=== PATIENT | male | born 1975 | race Caucasian/White ===

== ENCOUNTER 2017-08-15 10:15 | Outpatient (RCR) | payer MEDICARE, MEDICAID, SELFPAY ==
[2017-07-31 10:59] VITALS: BP 120/65; PULSE 90; RESP 20; TEMP 37.7; BMI 31.3
--- NOTE | 2017-07-31 12:19 | WC ---
PT IS REFUGIO. LIVES @ [facility]. PER CAREGIVER PT'S MOTHER YOLETTE IS HIS POA FOR MEDICAL. CALLED YOLETTE KIM. SHE ASKS THAT WE EMAIL OR MAIL HER CONSENTS, SHE WILL SIGN AND SEND BACK. JUSTIN, ANCILLARY SERVICES MANAGER THERAPY UPDATED AND GIVEN CONTACT INFO.
--- NOTE | 2017-07-31 17:11 | PCM.WC.HP ---
(1) Open wound of left lower extremity Status: Acute Current Visit: Yes Qualifiers: Encounter type: initial encounter Qualified Code(s): S81.802A - Unspecified open wound, left lower leg, initial encounter Code(s): S81.802A - Unspecified open wound, left lower leg, initial encounter (2) MRDD Status: Chronic Current Visit: No (3) Open wound of right lower extremity Status: Acute Current Visit: Yes Qualifiers: Encounter type: initial encounter Qualified Code(s): S81.801A - Unspecified open wound, right lower leg, initial encounter Code(s): S81.801A - Unspecified open wound, right lower leg, initial encounter (4) Cerebral palsy Status: Chronic Current Visit: No Code(s): G80.9 - Cerebral palsy, unspecified (5) Seizure disorder Status: Chronic Current Visit: No Code(s): G40.909 - Epilepsy, unspecified, not intractable, without status epilepticus History of Present Illness Date of Service: 07/31/17 Chief Complaint: Open wounds of bilateral lower extremities s/p fall. History of Wound: Mr. Osborne is a 42yo with PMH of cerebral palsy, seizure disorder and intellectual disability who presented here with his caregiver due to bilateral lower extremity wounds. On 19 July 2017 patient was said to have gone into seizure while in the bathroom and subseqeuntly sustained injuries/wounds to his bilateral lower extremity wounds. He has been to the ER, urgent care, his PCP and finally podiatry before being referred here. Per his caregiver he was initially started on clindamycin however this was recently changed to Bactrim. Wounds are said to be improving since being on antibiotics. He is otherwise said to be at his baseline with no documented chills, fever, nausea, vomiting or change in his bowel habit. He appears well also. Past Medical History Past Medical History: Chronic Problems MRDD (Chronic) Cerebral palsy (Chronic) Seizure disorder (Chronic) Surgical History: noncontributory Allergies/Adverse Reactions: Allergies cat dander Allergy (Verified 07/24/17 10:25) cough divalproex sodium [From Depakote] Adverse Reaction (Verified 07/24/17 10:25) Other valproate sodium [From Depakene] Adverse Reaction (Verified 07/24/17 10:25) Other valproic acid Adverse Reaction (Verified 07/24/17 10:25) affects machine worker adversly Home Medications: Ambulatory Orders Medication Instructions Recorded Aripiprazole [Abilify] 2 mg PO BID 04/06/15 DiphenhydrAMINE [Benadryl] 25 mg PO TID PRN PRN 04/06/15 Docusate Sodium [Colace Clear] 100 mg PO BID 04/06/15 Escitalopram Oxalate [Lexapro] 15 mg PO DAILY 04/06/15 Fluticasone 0.05% [Flonase Nasal 2 spray INHALATION DAILY 04/06/15 Mcewen] Lamotrigine [Lamictal Xr] 300 mg PO BID 04/06/15 Omeprazole [Prilosec] 40 mg PO BID 04/06/15 Vitamin D 1.25 mg PO DAILY 04/06/15 Vitamin E 28,000 units TOPICAL QODAY 04/06/15 Zonisamide [Zonegran] 200 mg PO BID 04/06/15 Bacitracin Ointment 1 applic TOPICAL BID #60 g 07/20/17 Calcium 600 with Vit D Chew Tb 1 tab PO BID 07/20/17 Certavite 1 tab PO DAILY 07/20/17 Debrox 3 drop TOPICAL BID 07/20/17 Diastat 10 mg RECTAL PRN 07/20/17 Polyethylene Glycol 3350 [Miralax] 17 gm PO BID 07/20/17 Mupirocin [Bactroban] 1 applic TOPICAL TID #1 tube 07/24/17 Smz/Tmp Ds [Bactrim Ds] 1 tablet PO BID 07/31/17 - Family History Maternal - - Adopted Smoking Status: Never smoker Review of Systems Unable to obtain accurate/complete ROS d/t: Patient with a history of intellectual disability. - Physical Exam Vital Signs Temp Pulse Resp BP 100 F H 90 20 H 120/65 07/31/17 10:59 07/31/17 10:59 07/31/17 10:59 07/31/17 10:59 General: Cooperative, No apparent distress HEENT: Atraumatic Oral: Moist Mucosa Neck: Supple, No JVD Lungs: Normal air movement Cardiovascular: Regular rate, Regular Rhythm, Normal S1, Normal S2 Abdomen: Soft, Non Tender Skin: Ulcer/ Wound Wound Measurements and Assessment WC - Nurse 1 - General Ulcer Measurement Start: 07/31/17 10:21 Freq: Status: Active Protocol: Activity Type Activity Date Activity User E-Sign Co-Sign Detail Recorded Client Recorded Date Recorded By Document 07/31/17 10:59 [facility] [id number] 07/31/17 11:30 [facility] 07/31/17 10:59 Wound Center Nurse 1 [Ulcer Assessment Protocol: WC.WD.LOC] #5- RT LATERAL ANKLE -Combined with other wound No -Current Size (cm) - Length 3 -Current Size (cm) - Width 1.2 -Current Size (cm) - Depth 0.1 -Total Square Cm 3.6 -Date of Last Picture (Recall this 07/31/17 field) -Photo Taken Yes -Epithelialization None Present -Tunneling No -Undermining/Tunneling No -Exudate Amt Small (1-33%) -Exudate Type Serosanguineous -Wound Margin Distinct, Outline Attached -Granulation Amt Small (1-33%) -Granulation Quality Red -Slough/Fibrin Yes -Necrosis Amt Large (67-100%) -Necrotic Tissue Type Adherent Slough -Structure Exposed N/A -Texture (Zelda-wound Skin Appearance) Assessed -Moisture (Zelda-wound Skin Appearance Dry/Scaly ) -Color (Zelda-wound Skin Appearance) Erythema -Temperature (Zelda-wound Skin No Abnormality Appearance) (Pt Warm) -Tenderness on Palpation (Zelda-wound Yes Skin Appearance) -Ulcer Cleansing Rinsed/ Irrigated with Saline -Foul Odor after Cleansing No -Anesthetic Used 4% Lidocaine Solution #4- RT FOOT DORSAL ASPECT -Combined with other wound No -Current Size (cm) - Length 19 -Current Size (cm) - Width 3.5 -Current Size (cm) - Depth 0.1 -Total Square Cm 66.5 -Date of Last Picture (Recall this 07/31/17 field) -Photo Taken Yes -Epithelialization None Present -Tunneling No -Undermining/Tunneling No -Exudate Amt Small (1-33%) -Exudate Type Serosanguineous -Wound Margin Distinct, Outline Attached -Granulation Amt Small (1-33%) -Granulation Quality Red -Slough/Fibrin Yes -Necrosis Amt Large (67-100%) -Necrotic Tissue Type Adherent Slough -Structure Exposed N/A -Texture (Zelda-wound Skin Appearance) Assessed -Moisture (Zelda-wound Skin Appearance Dry/Scaly ) -Color (Zelda-wound Skin Appearance) Erythema -Temperature (Zelda-wound Skin No Abnormality Appearance) (Pt Warm) -Tenderness on Palpation (Zelda-wound No Skin Appearance) -Ulcer Cleansing Rinsed/ Irrigated with Saline -Foul Odor after Cleansing No -Anesthetic Used 4% Lidocaine Solution #3- LT FOOT DORSAL ASPECT -Combined with other wound No -Current Size (cm) - Length 6.3 -Current Size (cm) - Width 6.3 -Current Size (cm) - Depth 0.1 -Total Square Cm 39.69 -Date of Last Picture (Recall this 07/31/17 field) -Photo Taken Yes -Epithelialization None Present -Tunneling No -Undermining/Tunneling No -Exudate Amt Medium (34-66%) -Exudate Type Serosanguineous -Wound Margin Distinct, Outline Attached -Granulation Amt None Present (0 %) -Slough/Fibrin Yes -Necrosis Amt Large (67-100%) -Necrotic Tissue Type Adherent Slough -Structure Exposed N/A -Texture (Zelda-wound Skin Appearance) Assessed -Moisture (Zelda-wound Skin Appearance Dry/Scaly ) -Color (Zelda-wound Skin Appearance) Erythema -Temperature (Zelda-wound Skin No Abnormality Appearance) (Pt Warm) -Tenderness on Palpation (Zelda-wound Yes Skin Appearance) -Ulcer Cleansing Rinsed/ Irrigated with Saline -Foul Odor after Cleansing No -Anesthetic Used 4% Lidocaine Solution #2- LT GR TOE -Combined with other wound No -Current Size (cm) - Length 1.4 -Current Size (cm) - Width 3 -Current Size (cm) - Depth 0.1 -Total Square Cm 4.2 -Date of Last Picture (Recall this 07/31/17 field) -Photo Taken Yes -Epithelialization None Present -Tunneling No -Undermining/Tunneling No -Exudate Amt Small (1-33%) -Exudate Type Serosanguineous -Wound Margin Distinct, Outline Attached -Granulation Amt None Present (0 %) -Slough/Fibrin Yes -Necrosis Amt Large (67-100%) -Necrotic Tissue Type Adherent Slough -Structure Exposed N/A -Texture (Zelda-wound Skin Appearance) Assessed -Moisture (Zelda-wound Skin Appearance Dry/Scaly ) -Color (Zelda-wound Skin Appearance) Erythema -Temperature (Zelda-wound Skin No Abnormality Appearance) (Pt Warm) -Tenderness on Palpation (Zelda-wound Yes Skin Appearance) -Ulcer Cleansing Rinsed/ Irrigated with Saline -Foul Odor after Cleansing No -Anesthetic Used 4% Lidocaine Solution [Edema Assessment] -Lower Limb Edema Present Yes -Right Calf (cm) 36.9 -Right Ankle (cm) 22 -Left Calf (cm) 37.8 -Left Ankle (cm) 23.1 WC - Nurse 2 - General Ulcer CM Notes Start: 07/31/17 10:21 Freq: Status: Active Protocol: Activity Type Activity Date Activity User E-Sign Co-Sign Detail Recorded Client Recorded Date Recorded By Document 07/31/17 12:32 DV [id number] 07/31/17 12:39 DV 07/31/17 12:32 Wound Center Nurse 2 [Procedure/Treatment] #5- RT LATERAL ANKLE -Time 12:33 -Correct Patient Yes -Correct Side, Site, Position Yes -Correct Procedure Yes -Procedure Performed Yes -Type of Procedure Debridement -Clinical Debridement Subcutaneous -Post Debridement Size (cm) - Length 3.5 -Post Debridement Size (cm) - Width 1.3 -Post Debridement Size (cm) - Depth 0.1 -Total Square Cm 4.55 -Wound/Ulcer Outcome Not Healed -Ulcer Cleansing Rinsed/ Irrigated with Saline -Foul Odor after Cleansing No -Bioengineered Tissue No -Cetacaine Mcewen No -Bleeding Controlled with Pressure -Treatment Response Procedure Tolerated Well #4- RT FOOT DORSAL ASPECT -Time 12:34 -Correct Patient Yes -Correct Side, Site, Position Yes -Correct Procedure Yes -Procedure Performed Yes -Type of Procedure Debridement -Clinical Debridement Subcutaneous -Post Debridement Size (cm) - Length 20.0 -Post Debridement Size (cm) - Width 3.6 -Post Debridement Size (cm) - Depth 0.1 -Total Square Cm 72.00 -Wound/Ulcer Outcome Not Healed -Ulcer Cleansing Rinsed/ Irrigated with Saline -Foul Odor after Cleansing No -Bioengineered Tissue No -Cetacaine Mcewen No -Bleeding Controlled with Pressure -Treatment Response Procedure Tolerated Well #3- LT FOOT DORSAL ASPECT -Time 12:37 -Correct Patient Yes -Correct Side, Site, Position Yes -Correct Procedure Yes -Procedure Performed Yes -Type of Procedure Debridement -Clinical Debridement Subcutaneous -Post Debridement Size (cm) - Length 6.5 -Post Debridement Size (cm) - Width 6.5 -Post Debridement Size (cm) - Depth 0.1 -Total Square Cm 42.25 -Wound/Ulcer Outcome Not Healed -Ulcer Cleansing Rinsed/ Irrigated with Saline -Foul Odor after Cleansing No -Bioengineered Tissue No -Cetacaine Mcewen No -Bleeding Controlled with Pressure -Treatment Response Procedure Tolerated Well #2- LT GR TOE -Time 12:37 -Correct Patient Yes -Correct Side, Site, Position Yes -Correct Procedure Yes -Procedure Performed Yes -Type of Procedure Debridement -Clinical Debridement Subcutaneous -Post Debridement Size (cm) - Length 2.0 -Post Debridement Size (cm) - Width 3.0 -Post Debridement Size (cm) - Depth 0.1 -Total Square Cm 6.00 -Wound/Ulcer Outcome Not Healed -Ulcer Cleansing Rinsed/ Irrigated with Saline -Foul Odor after Cleansing No -Bioengineered Tissue No -Cetacaine Mcewen No -Bleeding Controlled with NA -Treatment Response Procedure Tolerated Well [See Physician Procedure note for Specifics] Pain Scale: 0-10 Numeric [Pain] -Is Patient Pain Free? Yes Musculoskeletal: No Muscle Wasting Debridement Note Post-Debridement Measurements/Treatment WC - Nurse 2 - General Ulcer CM Notes Start: 07/31/17 10:21 Freq: Status: Active Protocol: Activity Type Activity Date Activity User E-Sign Co-Sign Detail Recorded Client Recorded Date Recorded By Document 07/31/17 12:32 DV [id number] 07/31/17 12:39 DV 07/31/17 12:32 Wound Center Nurse 2 #5- RT LATERAL ANKLE -Time 12:33 -Correct Patient Yes -Correct Side, Site, Position Yes -Correct Procedure Yes -Procedure Performed Yes -Type of Procedure Debridement -Clinical Debridement Subcutaneous -Post Debridement Size (cm) - Length 3.5 -Post Debridement Size (cm) - Width 1.3 -Post Debridement Size (cm) - Depth 0.1 -Total Square Cm 4.55 -Wound/Ulcer Outcome Not Healed -Ulcer Cleansing Rinsed/ Irrigated with Saline -Foul Odor after Cleansing No -Bioengineered Tissue No -Cetacaine Mcewen No -Bleeding Controlled with Pressure -Treatment Response Procedure Tolerated Well #4- RT FOOT DORSAL ASPECT -Time 12:34 -Correct Patient Yes -Correct Side, Site, Position Yes -Correct Procedure Yes -Procedure Performed Yes -Type of Procedure Debridement -Clinical Debridement Subcutaneous -Post Debridement Size (cm) - Length 20.0 -Post Debridement Size (cm) - Width 3.6 -Post Debridement Size (cm) - Depth 0.1 -Total Square Cm 72.00 -Wound/Ulcer Outcome Not Healed -Ulcer Cleansing Rinsed/ Irrigated with Saline -Foul Odor after Cleansing No -Bioengineered Tissue No -Cetacaine Mcewen No -Bleeding Controlled with Pressure -Treatment Response Procedure Tolerated Well #3- LT FOOT DORSAL ASPECT -Time 12:37 -Correct Patient Yes -Correct Side, Site, Position Yes -Correct Procedure Yes -Procedure Performed Yes -Type of Procedure Debridement -Clinical Debridement Subcutaneous -Post Debridement Size (cm) - Length 6.5 -Post Debridement Size (cm) - Width 6.5 -Post Debridement Size (cm) - Depth 0.1 -Total Square Cm 42.25 -Wound/Ulcer Outcome Not Healed -Ulcer Cleansing Rinsed/ Irrigated with Saline -Foul Odor after Cleansing No -Bioengineered Tissue No -Cetacaine Mcewen No -Bleeding Controlled with Pressure -Treatment Response Procedure Tolerated Well #2- LT GR TOE -Time 12:37 -Correct Patient Yes -Correct Side, Site, Position Yes -Correct Procedure Yes -Procedure Performed Yes -Type of Procedure Debridement -Clinical Debridement Subcutaneous -Post Debridement Size (cm) - Length 2.0 -Post Debridement Size (cm) - Width 3.0 -Post Debridement Size (cm) - Depth 0.1 -Total Square Cm 6.00 -Wound/Ulcer Outcome Not Healed -Ulcer Cleansing Rinsed/ Irrigated with Saline -Foul Odor after Cleansing No -Bioengineered Tissue No -Cetacaine Mcewen No -Bleeding Controlled with NA -Treatment Response Procedure Tolerated Well Pain Scale: 0-10 Numeric Is Patient Pain Free? Yes Wound debrided: Right Dorsal wound Type of Debridement: Excisional debridement Anesthesia Used: 4% Lidocaine Solution Depth: Down to and including healthy tissue, in the subcutaneous layer Percentage of wound debrided: 100 Instrument Used: 7mm curette Tissue Removed: Slough, Fibrin, biofilm Amount of bleeding with debridement: Mild Bleeding Controlled with: Pressure Patient tolerated procedure well - Additional Wound Wound debrided: Right ankle wounf Type of Debridement: Excisional debridement Anesthesia Used: 4% Lidocaine Solution Depth: Down to and including healthy tissue, in the subcutaneous layer Percentage of wound debrided: 100 Instrument Used: 5mm curette Tissue Removed: Slough Amount of bleeding with debridement: Mild Bleeding Controlled with: Pressure Patient tolerated procedure: Patient tolerated procedure well - Additional Wound Wound debrided: Left Dorsal wound Type of Debridement: Excisional debridement Anesthesia Used: 4% Lidocaine Solution Depth: Down to and including healthy tissue, in the subcutaneous layer Percentage of wound debrided: 100 Instrument Used: 7mm curette Tissue Removed: Slough, Fibrin, Biofilm Amount of bleeding with debridement: Mild Bleeding Controlled with: Pressure Patient tolerated procedure: Patient tolerated procedure well - Additional Wound Wound debrided: Left Great Toe Type of Debridement: Excisional debridement Anesthesia Used: 4% Lidocaine Solution Depth: Down to and including healthy tissue, in the subcutaneous layer Percentage of wound debrided: 100 Instrument Used: 5mm curette Tissue Removed: Slough Amount of bleeding with debridement: Mild Bleeding Controlled with: Pressure Patient tolerated procedure: Patient tolerated procedure well Assessment/Plan Active Problems Open wound of left lower extremity (Acute) Open wound of right lower extremity (Acute) Assessment: Open wound to bilateral lower extremity secondary to trauma. Intellectual Disability. Seizure Disorder. Plan: Wound debridement done as documented above. Procedure was well-tolerated. Cultures have been taken by his nitrating acid mixer and he is currently on Bactrim. Will continue current antibiotic. Apply Santyl with Adaptic covering to left dorsal wound. Apply Aquacel with Adaptic covering to right dorsal and lateral ankle wounds. Elevate lower extremities when sitted and in bed. Daily protein supplements and protein rich diet. Exercise as tolerated. Follow-up in 1 week. This note was generated with [employer] dictation software. It may contain incorrect words, spelling, and punctuation that were not noted in checking the note before signing.
--- NOTE | 2017-07-31 17:22 | HP.PCM_ITS ---
(1) Open wound of left lower extremity Status: Acute Current Visit: Yes Qualifiers: Encounter type: initial encounter Qualified Code(s): S81.802A - Unspecified open wound, left lower leg, initial encounter Code(s): S81.802A - Unspecified open wound, left lower leg, initial encounter (2) MRDD Status: Chronic Current Visit: No (3) Open wound of right lower extremity Status: Acute Current Visit: Yes Qualifiers: Encounter type: initial encounter Qualified Code(s): S81.801A - Unspecified open wound, right lower leg, initial encounter Code(s): S81.801A - Unspecified open wound, right lower leg, initial encounter (4) Cerebral palsy Status: Chronic Current Visit: No Code(s): G80.9 - Cerebral palsy, unspecified (5) Seizure disorder Status: Chronic Current Visit: No Code(s): G40.909 - Epilepsy, unspecified, not intractable, without status epilepticus History of Present Illness Date of Service: 07/31/17 Chief Complaint: Open wounds of bilateral lower extremities s/p fall. History of Wound: Mr. Osborne is a 42yo with PMH of cerebral palsy, seizure disorder and intellectual disability who presented here with his caregiver due to bilateral lower extremity wounds. On 19 July 2017 patient was said to have gone into seizure while in the bathroom and subseqeuntly sustained injuries /wounds to his bilateral lower extremity wounds. He has been to the ER, urgent care, his PCP and finally podiatry before being referred here. Per his caregiver he was initially started on clindamycin however this was recently changed to Bactrim. Wounds are said to be improving since being on antibiotics. He is otherwise said to be at his baseline with no documented chills, fever, nausea, vomiting or change in his bowel habit. He appears well also. Past Medical History Past Medical History: Chronic Problems MRDD (Chronic) Cerebral palsy (Chronic) Seizure disorder (Chronic) Surgical History: noncontributory Allergies/Adverse Reactions: Allergies cat dander Allergy (Verified 07/24/17 10:25) cough divalproex sodium [From Depakote] Adverse Reaction (Verified 07/24/17 10:25) Other valproate sodium [From Depakene] Adverse Reaction (Verified 07/24/17 10:25) Other valproic acid Adverse Reaction (Verified 07/24/17 10:25) affects color buffer adversly Home Medications: Ambulatory Orders Medication Instructions Recorded Aripiprazole [Abilify] 2 mg PO BID 04/06/15 DiphenhydrAMINE [Benadryl] 25 mg PO TID PRN PRN 04/06/15 Docusate Sodium [Colace Clear] 100 mg PO BID 04/06/15 Escitalopram Oxalate [Lexapro] 15 mg PO DAILY 04/06/15 Fluticasone 0.05% [Flonase Nasal 2 spray INHALATION DAILY 04/06/15 Sherborn] Lamotrigine [Lamictal Xr] 300 mg PO BID 04/06/15 Omeprazole [Prilosec] 40 mg PO BID 04/06/15 Vitamin D 1.25 mg PO DAILY 04/06/15 Vitamin E 28,000 units TOPICAL QODAY 04/06/15 Zonisamide [Zonegran] 200 mg PO BID 04/06/15 Bacitracin Ointment 1 applic TOPICAL BID #60 g 07/20/17 Calcium 600 with Vit D Chew Tb 1 tab PO BID 07/20/17 Certavite 1 tab PO DAILY 07/20/17 Debrox 3 drop TOPICAL BID 07/20/17 Diastat 10 mg RECTAL PRN 07/20/17 Polyethylene Glycol 3350 [Miralax] 17 gm PO BID 07/20/17 Mupirocin [Bactroban] 1 applic TOPICAL TID #1 tube 07/24/17 Smz/Tmp Ds [Bactrim Ds] 1 tablet PO BID 07/31/17 - Family History Maternal - - Adopted Smoking Status: Never smoker Review of Systems Unable to obtain accurate/complete ROS d/t: Patient with a history of intellectual disability. - Physical Exam Vital Signs Temp Pulse Resp BP 100 F H 90 20 H 120/65 07/31/17 10:59 07/31/17 10:59 07/31/17 10:59 07/31/17 10:59 General: Cooperative, No apparent distress HEENT: Atraumatic Oral: Moist Mucosa Neck: Supple, No JVD Lungs: Normal air movement Cardiovascular: Regular rate, Regular Rhythm, Normal S1, Normal S2 Abdomen: Soft, Non Tender Skin: Ulcer/ Wound Wound Measurements and Assessment WC - Nurse 1 - General Ulcer Measurement Start: 07/31/17 10:21 Freq: Status: Active Protocol: Activity Type Activity Date Activity User E-Sign Co-Sign Detail Recorded Client Recorded Date Recorded By Document 07/31/17 10:59 [facility] [id number] 07/31/17 11:30 [facility] 07/31/17 10:59 Wound Center Nurse 1 [Ulcer Assessment Protocol: WC.WD.LOC] #5- RT LATERAL ANKLE -Combined with other wound No -Current Size (cm) - Length 3 -Current Size (cm) - Width 1.2 -Current Size (cm) - Depth 0.1 -Total Square Cm 3.6 -Date of Last Picture (Recall this 07/31/17 field) -Photo Taken Yes -Epithelialization None Present -Tunneling No -Undermining/Tunneling No -Exudate Amt Small (1-33%) -Exudate Type Serosanguineous -Wound Margin Distinct, Outline Attached -Granulation Amt Small (1-33%) -Granulation Quality Red -Slough/Fibrin Yes -Necrosis Amt Large (67-100%) -Necrotic Tissue Type Adherent Slough -Structure Exposed N/A -Texture (Zelda-wound Skin Appearance) Assessed -Moisture (Zelda-wound Skin Appearance Dry/Scaly ) -Color (Zelda-wound Skin Appearance) Erythema -Temperature (Zelda-wound Skin No Abnormality Appearance) (Pt Warm) -Tenderness on Palpation (Zelda-wound Yes Skin Appearance) -Ulcer Cleansing Rinsed/ Irrigated with Saline -Foul Odor after Cleansing No -Anesthetic Used 4% Lidocaine Solution #4- RT FOOT DORSAL ASPECT -Combined with other wound No -Current Size (cm) - Length 19 -Current Size (cm) - Width 3.5 -Current Size (cm) - Depth 0.1 -Total Square Cm 66.5 -Date of Last Picture (Recall this 07/31/17 field) -Photo Taken Yes -Epithelialization None Present -Tunneling No -Undermining/Tunneling No -Exudate Amt Small (1-33%) -Exudate Type Serosanguineous -Wound Margin Distinct, Outline Attached -Granulation Amt Small (1-33%) -Granulation Quality Red -Slough/Fibrin Yes -Necrosis Amt Large (67-100%) -Necrotic Tissue Type Adherent Slough -Structure Exposed N/A -Texture (Zelda-wound Skin Appearance) Assessed -Moisture (Zelda-wound Skin Appearance Dry/Scaly ) -Color (Zelda-wound Skin Appearance) Erythema -Temperature (Zelda-wound Skin No Abnormality Appearance) (Pt Warm) -Tenderness on Palpation (Zelda-wound No Skin Appearance) -Ulcer Cleansing Rinsed/ Irrigated with Saline -Foul Odor after Cleansing No -Anesthetic Used 4% Lidocaine Solution #3- LT FOOT DORSAL ASPECT -Combined with other wound No -Current Size (cm) - Length 6.3 -Current Size (cm) - Width 6.3 -Current Size (cm) - Depth 0.1 -Total Square Cm 39.69 -Date of Last Picture (Recall this 07/31/17 field) -Photo Taken Yes -Epithelialization None Present -Tunneling No -Undermining/Tunneling No -Exudate Amt Medium (34-66%) -Exudate Type Serosanguineous -Wound Margin Distinct, Outline Attached -Granulation Amt None Present (0 %) -Slough/Fibrin Yes -Necrosis Amt Large (67-100%) -Necrotic Tissue Type Adherent Slough -Structure Exposed N/A -Texture (Zelda-wound Skin Appearance) Assessed -Moisture (Zelda-wound Skin Appearance Dry/Scaly ) -Color (Zelda-wound Skin Appearance) Erythema -Temperature (Zelda-wound Skin No Abnormality Appearance) (Pt Warm) -Tenderness on Palpation (Zelda-wound Yes Skin Appearance) -Ulcer Cleansing Rinsed/ Irrigated with Saline -Foul Odor after Cleansing No -Anesthetic Used 4% Lidocaine Solution #2- LT GR TOE -Combined with other wound No -Current Size (cm) - Length 1.4 -Current Size (cm) - Width 3 -Current Size (cm) - Depth 0.1 -Total Square Cm 4.2 -Date of Last Picture (Recall this 07/31/17 field) -Photo Taken Yes -Epithelialization None Present -Tunneling No -Undermining/Tunneling No -Exudate Amt Small (1-33%) -Exudate Type Serosanguineous -Wound Margin Distinct, Outline Attached -Granulation Amt None Present (0 %) -Slough/Fibrin Yes -Necrosis Amt Large (67-100%) -Necrotic Tissue Type Adherent Slough -Structure Exposed N/A -Texture (Zelda-wound Skin Appearance) Assessed -Moisture (Zelda-wound Skin Appearance Dry/Scaly ) -Color (Zelda-wound Skin Appearance) Erythema -Temperature (Zelda-wound Skin No Abnormality Appearance) (Pt Warm) -Tenderness on Palpation (Zelda-wound Yes Skin Appearance) -Ulcer Cleansing Rinsed/ Irrigated with Saline -Foul Odor after Cleansing No -Anesthetic Used 4% Lidocaine Solution [Edema Assessment] -Lower Limb Edema Present Yes -Right Calf (cm) 36.9 -Right Ankle (cm) 22 -Left Calf (cm) 37.8 -Left Ankle (cm) 23.1 WC - Nurse 2 - General Ulcer CM Notes Start: 07/31/17 10:21 Freq: Status: Active Protocol: Activity Type Activity Date Activity User E-Sign Co-Sign Detail Recorded Client Recorded Date Recorded By Document 07/31/17 12:32 DV [id number] 07/31/17 12:39 DV 07/31/17 12:32 Wound Center Nurse 2 [Procedure/Treatment] #5- RT LATERAL ANKLE -Time 12:33 -Correct Patient Yes -Correct Side, Site, Position Yes -Correct Procedure Yes -Procedure Performed Yes -Type of Procedure Debridement -Clinical Debridement Subcutaneous -Post Debridement Size (cm) - Length 3.5 -Post Debridement Size (cm) - Width 1.3 -Post Debridement Size (cm) - Depth 0.1 -Total Square Cm 4.55 -Wound/Ulcer Outcome Not Healed -Ulcer Cleansing Rinsed/ Irrigated with Saline -Foul Odor after Cleansing No -Bioengineered Tissue No -Cetacaine Sherborn No -Bleeding Controlled with Pressure -Treatment Response Procedure Tolerated Well #4- RT FOOT DORSAL ASPECT -Time 12:34 -Correct Patient Yes -Correct Side, Site, Position Yes -Correct Procedure Yes -Procedure Performed Yes -Type of Procedure Debridement -Clinical Debridement Subcutaneous -Post Debridement Size (cm) - Length 20.0 -Post Debridement Size (cm) - Width 3.6 -Post Debridement Size (cm) - Depth 0.1 -Total Square Cm 72.00 -Wound/Ulcer Outcome Not Healed -Ulcer Cleansing Rinsed/ Irrigated with Saline -Foul Odor after Cleansing No -Bioengineered Tissue No -Cetacaine [place] No -Bleeding Controlled with Pressure -Treatment Response Procedure Tolerated Well #3- LT FOOT DORSAL ASPECT -Time 12:37 -Correct Patient Yes -Correct Side, Site, Position Yes -Correct Procedure Yes -Procedure Performed Yes -Type of Procedure Debridement -Clinical Debridement Subcutaneous -Post Debridement Size (cm) - Length 6.5 -Post Debridement Size (cm) - Width 6.5 -Post Debridement Size (cm) - Depth 0.1 -Total Square Cm 42.25 -Wound/Ulcer Outcome Not Healed -Ulcer Cleansing Rinsed/ Irrigated with Saline -Foul Odor after Cleansing No -Bioengineered Tissue No -Cetacaine [place] No -Bleeding Controlled with Pressure -Treatment Response Procedure Tolerated Well #2- LT GR TOE -Time 12:37 -Correct Patient Yes -Correct Side, Site, Position Yes -Correct Procedure Yes -Procedure Performed Yes -Type of Procedure Debridement -Clinical Debridement Subcutaneous -Post Debridement Size (cm) - Length 2.0 -Post Debridement Size (cm) - Width 3.0 -Post Debridement Size (cm) - Depth 0.1 -Total Square Cm 6.00 -Wound/Ulcer Outcome Not Healed -Ulcer Cleansing Rinsed/ Irrigated with Saline -Foul Odor after Cleansing No -Bioengineered Tissue No -Cetacaine Sherborn No -Bleeding Controlled with NA -Treatment Response Procedure Tolerated Well [See Physician Procedure note for Specifics] Pain Scale: 0-10 Numeric [Pain] -Is Patient Pain Free? Yes Musculoskeletal: No Muscle Wasting Debridement Note Post-Debridement Measurements/Treatment WC - Nurse 2 - General Ulcer CM Notes Start: 07/31/17 10:21 Freq: Status: Active Protocol: Activity Type Activity Date Activity User E-Sign Co-Sign Detail Recorded Client Recorded Date Recorded By Document 07/31/17 12:32 DV [id number] 07/31/17 12:39 DV 07/31/17 12:32 Wound Center Nurse 2 #5- RT LATERAL ANKLE -Time 12:33 -Correct Patient Yes -Correct Side, Site, Position Yes -Correct Procedure Yes -Procedure Performed Yes -Type of Procedure Debridement -Clinical Debridement Subcutaneous -Post Debridement Size (cm) - Length 3.5 -Post Debridement Size (cm) - Width 1.3 -Post Debridement Size (cm) - Depth 0.1 -Total Square Cm 4.55 -Wound/Ulcer Outcome Not Healed -Ulcer Cleansing Rinsed/ Irrigated with Saline -Foul Odor after Cleansing No -Bioengineered Tissue No -Cetacaine Sherborn No -Bleeding Controlled with Pressure -Treatment Response Procedure Tolerated Well #4- RT FOOT DORSAL ASPECT -Time 12:34 -Correct Patient Yes -Correct Side, Site, Position Yes -Correct Procedure Yes -Procedure Performed Yes -Type of Procedure Debridement -Clinical Debridement Subcutaneous -Post Debridement Size (cm) - Length 20.0 -Post Debridement Size (cm) - Width 3.6 -Post Debridement Size (cm) - Depth 0.1 -Total Square Cm 72.00 -Wound/Ulcer Outcome Not Healed -Ulcer Cleansing Rinsed/ Irrigated with Saline -Foul Odor after Cleansing No -Bioengineered Tissue No -Cetacaine [place] No -Bleeding Controlled with Pressure -Treatment Response Procedure Tolerated Well #3- LT FOOT DORSAL ASPECT -Time 12:37 -Correct Patient Yes -Correct Side, Site, Position Yes -Correct Procedure Yes -Procedure Performed Yes -Type of Procedure Debridement -Clinical Debridement Subcutaneous -Post Debridement Size (cm) - Length 6.5 -Post Debridement Size (cm) - Width 6.5 -Post Debridement Size (cm) - Depth 0.1 -Total Square Cm 42.25 -Wound/Ulcer Outcome Not Healed -Ulcer Cleansing Rinsed/ Irrigated with Saline -Foul Odor after Cleansing No -Bioengineered Tissue No -Cetacaine Sherborn No -Bleeding Controlled with Pressure -Treatment Response Procedure Tolerated Well #2- LT GR TOE -Time 12:37 -Correct Patient Yes -Correct Side, Site, Position Yes -Correct Procedure Yes -Procedure Performed Yes -Type of Procedure Debridement -Clinical Debridement Subcutaneous -Post Debridement Size (cm) - Length 2.0 -Post Debridement Size (cm) - Width 3.0 -Post Debridement Size (cm) - Depth 0.1 -Total Square Cm 6.00 -Wound/Ulcer Outcome Not Healed -Ulcer Cleansing Rinsed/ Irrigated with Saline -Foul Odor after Cleansing No -Bioengineered Tissue No -Cetacaine Sherborn No -Bleeding Controlled with NA -Treatment Response Procedure Tolerated Well Pain Scale: 0-10 Numeric Is Patient Pain Free? Yes Wound debrided: Right Dorsal wound Type of Debridement: Excisional debridement Anesthesia Used: 4% Lidocaine Solution Depth: Down to and including healthy tissue, in the subcutaneous layer Percentage of wound debrided: 100 Instrument Used: 7mm curette Tissue Removed: Slough, Fibrin, biofilm Amount of bleeding with debridement: Mild Bleeding Controlled with: Pressure Patient tolerated procedure well - Additional Wound Wound debrided: Right ankle wounf Type of Debridement: Excisional debridement Anesthesia Used: 4% Lidocaine Solution Depth: Down to and including healthy tissue, in the subcutaneous layer Percentage of wound debrided: 100 Instrument Used: 5mm curette Tissue Removed: Slough Amount of bleeding with debridement: Mild Bleeding Controlled with: Pressure Patient tolerated procedure: Patient tolerated procedure well - Additional Wound Wound debrided: Left Dorsal wound Type of Debridement: Excisional debridement Anesthesia Used: 4% Lidocaine Solution Depth: Down to and including healthy tissue, in the subcutaneous layer Percentage of wound debrided: 100 Instrument Used: 7mm curette Tissue Removed: Slough, Fibrin, Biofilm Amount of bleeding with debridement: Mild Bleeding Controlled with: Pressure Patient tolerated procedure: Patient tolerated procedure well - Additional Wound Wound debrided: Left Great Toe Type of Debridement: Excisional debridement Anesthesia Used: 4% Lidocaine Solution Depth: Down to and including healthy tissue, in the subcutaneous layer Percentage of wound debrided: 100 Instrument Used: 5mm curette Tissue Removed: Slough Amount of bleeding with debridement: Mild Bleeding Controlled with: Pressure Patient tolerated procedure: Patient tolerated procedure well Assessment/Plan Active Problems Open wound of left lower extremity (Acute) Open wound of right lower extremity (Acute) Assessment: Open wound to bilateral lower extremity secondary to trauma. Intellectual Disability. Seizure Disorder. Plan: Wound debridement done as documented above. Procedure was well- tolerated. Cultures have been taken by his instrument and control service person and he is currently on Bactrim. Will continue current antibiotic. Apply Santyl with Adaptic covering to left dorsal wound. Apply Aquacel with Adaptic covering to right dorsal and lateral ankle wounds. Elevate lower extremities when sitted and in bed. Daily protein supplements and protein rich diet. Exercise as tolerated. Follow-up in 1 week. This note was generated with [employer] dictation software. It may contain incorrect words, spelling, and punctuation that were not noted in checking the note before signing.
[2017-08-08 09:57] VITALS: BP 118/73; PULSE 90; RESP 18; TEMP 37.1; BMI 31.3
--- NOTE | 2017-08-08 11:56 | PCM.WC.PN ---
(1) Open wound of left lower extremity Status: Acute Current Visit: Yes Qualifiers: Encounter type: subsequent encounter Qualified Code(s): S81.802D - Unspecified open wound, left lower leg, subsequent encounter Code(s): S81.802A - Unspecified open wound, left lower leg, initial encounter (2) MRDD Status: Chronic Current Visit: No (3) Open wound of right lower extremity Status: Acute Current Visit: Yes Qualifiers: Encounter type: subsequent encounter Qualified Code(s): S81.801D - Unspecified open wound, right lower leg, subsequent encounter Code(s): S81.801A - Unspecified open wound, right lower leg, initial encounter (4) Cerebral palsy Status: Chronic Current Visit: No Code(s): G80.9 - Cerebral palsy, unspecified (5) Seizure disorder Status: Chronic Current Visit: No Code(s): G40.909 - Epilepsy, unspecified, not intractable, without status epilepticus Type of Wound Date of Service: 08/08/17 Chief Complaint: Open wounds of bilateral lower extremities s/p fall. History of Wound: Mr. Osborne is a 42yo with PMH of cerebral palsy, seizure disorder and intellectual disability who presented here with his caregiver due to bilateral lower extremity wounds. On 19 July 2017 patient was said to have gone into seizure while in the bathroom and subseqeuntly sustained injuries/wounds to his bilateral lower extremity wounds. He has been to the ER, urgent care, his PCP and finally podiatry before being referred here. Per his caregiver he was initially started on clindamycin however this was recently changed to Bactrim. Wounds are said to be improving since being on antibiotics. He is otherwise said to be at his baseline with no documented chills, fever, nausea, vomiting or change in his bowel habit. He appears well also. Progress of Wound: Improving. No new compliants. Completed Antibiotics. - Physical Exam Vital Signs Temp Pulse Resp BP 98.8 F 90 18 118/73 08/08/17 09:57 08/08/17 09:57 08/08/17 09:57 08/08/17 09:57 General: Alert, Cooperative, No apparent distress HEENT: Atraumatic Oral: Moist Mucosa Neck: Supple Lungs: Normal air movement Cardiovascular: Regular rate Extremities: No cyanosis, No edema Skin: Ulcer/ Wound Wound Measurements and Assessment - Nurse 1 - General Ulcer Measurement Start: 07/31/17 10:21 Freq: Status: Active Protocol: Activity Type Activity Date Activity User E-Sign Co-Sign Detail Recorded Client Recorded Date Recorded By Document 08/08/17 09:57 DL [id number] 08/08/17 10:11 DL 08/08/17 09:57 Wound Center Nurse 1 [Ulcer Assessment Protocol: WC.WD.LOC] #5- RT LATERAL ANKLE -Current Size (cm) - Length 1.6 -Current Size (cm) - Width 0.8 -Current Size (cm) - Depth 0.1 -Total Square Cm 1.28 -Photo Taken No -Exudate Amt Small (1-33%) -Exudate Type Serosanguineous -Wound Margin Distinct, Outline Attached -Granulation Amt Large (67-100%) -Granulation Quality Red -Necrosis Amt Small (1-33%) -Necrotic Tissue Type Adherent Slough -Structure Exposed N/A -Texture (Zelda-wound Skin Appearance) Scarring -Moisture (Zelda-wound Skin Appearance No Abnormality ) -Color (Zelda-wound Skin Appearance) No Abnormality -Temperature ([place]elda-wound Skin No Abnormality Appearance) (Pt Warm) -Ulcer Cleansing Rinsed/ Irrigated with Saline -Foul Odor after Cleansing No -Anesthetic Used 4% Lidocaine Solution #4- RT FOOT DORSAL ASPECT -Current Size (cm) - Length 16.6 -Current Size (cm) - Width 2 -Current Size (cm) - Depth 0.1 -Total Square Cm 33.2 -Photo Taken No -Exudate Amt None Present (0 %) -Wound Margin Flat & Intact -Granulation Amt Large (67-100%) -Granulation Quality [place] -Necrosis Amt Small (1-33%) -Necrotic Tissue Type Adherent Slough -Structure Exposed N/A -Texture (Zelda-wound Skin Appearance) Scarring -Moisture (Zelda-wound Skin Appearance No Abnormality ) -Color (Zelda-wound Skin Appearance) No Abnormality -Temperature ([place]elda-wound Skin No Abnormality Appearance) (Pt Warm) -Tenderness on Palpation (Zelda-wound No Skin Appearance) -Foul Odor after Cleansing No -Anesthetic Used 4% Lidocaine Solution #3- LT FOOT DORSAL ASPECT -Current Size (cm) - Length 2 -Current Size (cm) - Width 7 -Current Size (cm) - Depth 0.1 -Total Square Cm 14 -Photo Taken No -Exudate Amt Small (1-33%) -Exudate Type Serosanguineous -Wound Margin Distinct, Outline Attached -Granulation Amt None Present (0 %) -Necrosis Amt Large (67-100%) -Necrotic Tissue Type Adherent Slough -Structure Exposed N/A -Texture (Zelda-wound Skin Appearance) Scarring -Moisture (Zelda-wound Skin Appearance No Abnormality ) -Color (Zelda-wound Skin Appearance) No Abnormality -Temperature (Zelda-wound Skin No Abnormality Appearance) (Pt Warm) -Tenderness on Palpation (Zelda-wound No Skin Appearance) -Ulcer Cleansing Rinsed/ Irrigated with Saline -Foul Odor after Cleansing No -Anesthetic Used 4% Lidocaine Solution #2- LT GR TOE -Current Size (cm) - Length 0.7 -Current Size (cm) - Width 2.2 -Current Size (cm) - Depth 0.1 -Total Square Cm 1.54 -Photo Taken No -Exudate Amt None Present (0 %) -Wound Margin Distinct, Outline Attached -Granulation Amt None Present (0 %) -Necrosis Amt Large (67-100%) -Necrotic Tissue Type Eschar -Structure Exposed N/A -Texture (Zelda-wound Skin Appearance) Scarring -Moisture (Zelda-wound Skin Appearance No Abnormality ) -Color (Zelda-wound Skin Appearance) No Abnormality -Temperature (Zelda-wound Skin No Abnormality Appearance) (Pt Warm) -Ulcer Cleansing Rinsed/ Irrigated with Saline -Foul Odor after Cleansing No -Anesthetic Used 4% Lidocaine Solution WC - Nurse 2 - General Ulcer CM Notes Start: 07/31/17 10:21 Freq: Status: Active Protocol: Activity Type Activity Date Activity User E-Sign Co-Sign Detail Recorded Client Recorded Date Recorded By Document 08/08/17 10:55 DV [id number] 08/08/17 11:16 DV 08/08/17 10:55 Wound Center Nurse 2 [Procedure/Treatment] #5- RT LATERAL ANKLE -Time 10:57 -Correct Patient Yes -Correct Side, Site, Position Yes -Correct Procedure Yes -Procedure Performed Yes -Type of Procedure Debridement -Clinical Debridement Subcutaneous -Post Debridement Size (cm) - Length 1.3 -Post Debridement Size (cm) - Width 0.5 -Post Debridement Size (cm) - Depth 0.1 -Total Square Cm 0.65 -Wound/Ulcer Outcome Not Healed -Ulcer Cleansing Rinsed/ Irrigated with Saline -Foul Odor after Cleansing No -Bioengineered Tissue No -Cetacaine [place] No -Bleeding Controlled with Pressure -Treatment Response Procedure Tolerated Well #4- RT FOOT DORSAL ASPECT -Time 10:58 -Correct Patient Yes -Correct Side, Site, Position Yes -Correct Procedure Yes -Procedure Performed Yes -Type of Procedure Debridement -Clinical Debridement Subcutaneous -Post Debridement Size (cm) - Length 19.0 -Post Debridement Size (cm) - Width 2.4 -Post Debridement Size (cm) - Depth 0.1 -Total Square Cm 45.60 -Wound/Ulcer Outcome Not Healed -Ulcer Cleansing Rinsed/ Irrigated with Saline -Foul Odor after Cleansing No -Bioengineered Tissue No -Cetacaine [place] No -Bleeding Controlled with Pressure -Treatment Response Procedure Tolerated Well #3- LT FOOT DORSAL ASPECT -Time 10:58 -Correct Patient Yes -Correct Side, Site, Position Yes -Correct Procedure Yes -Procedure Performed Yes -Type of Procedure Debridement -Clinical Debridement Subcutaneous -Post Debridement Size (cm) - Length 3.5 -Post Debridement Size (cm) - Width 7.8 -Post Debridement Size (cm) - Depth 0.1 -Total Square Cm 27.30 -Wound/Ulcer Outcome Not Healed -Ulcer Cleansing Rinsed/ Irrigated with Saline -Foul Odor after Cleansing No -Bioengineered Tissue No -Cetacaine [place] No -Bleeding Controlled with Pressure -Treatment Response Procedure Tolerated Well #2- LT GR TOE -Time 10:58 -Correct Patient Yes -Correct Side, Site, Position Yes -Correct Procedure Yes -Procedure Performed Yes -Type of Procedure Debridement -Clinical Debridement Subcutaneous -Post Debridement Size (cm) - Length 0.6 -Post Debridement Size (cm) - Width 2.0 -Post Debridement Size (cm) - Depth 0.1 -Total Square Cm 1.20 -Wound/Ulcer Outcome Not Healed -Ulcer Cleansing Rinsed/ Irrigated with Saline -Foul Odor after Cleansing No -Bioengineered Tissue No -Cetacaine [place] No -Bleeding Controlled with Pressure -Treatment Response Procedure Tolerated Well [See Physician Procedure note for Specifics] Pain Scale: 0-10 Numeric [Pain] -Is Patient Pain Free? Yes Musculoskeletal: No Muscle Wasting Neurological: Cranial nerves II-XII grossly intact Debridement Note Post-Debridement Measurements/Treatment WC - Nurse 2 - General Ulcer CM Notes Start: 07/31/17 10:21 Freq: Status: Active Protocol: Activity Type Activity Date Activity User E-Sign Co-Sign Detail Recorded Client Recorded Date Recorded By Document 07/31/17 12:32 DV [id number] 07/31/17 12:39 DV Document 08/08/17 10:55 DV [id number] 08/08/17 11:16 DV 07/31/17 08/08/17 12:32 10:55 Wound Center Nurse 2 #5- RT LATERAL ANKLE -Time 12:33 10:57 -Correct Patient Yes Yes -Correct Side, Site, Position Yes Yes -Correct Procedure Yes Yes -Procedure Performed Yes Yes -Type of Procedure Debridement Debridement -Clinical Debridement Subcutaneous Subcutaneous -Post Debridement Size (cm) - Length 3.5 1.3 -Post Debridement Size (cm) - Width 1.3 0.5 -Post Debridement Size (cm) - Depth 0.1 0.1 -Total Square Cm 4.55 0.65 -Wound/Ulcer Outcome Not Healed Not Healed -Ulcer Cleansing Rinsed/ Rinsed/ Irrigated with Irrigated with Saline Saline -Foul Odor after Cleansing No No -Bioengineered Tissue No No -Cetacaine [place] No No -Bleeding Controlled with Pressure Pressure -Treatment Response Procedure Procedure Tolerated Well Tolerated Well #4- RT FOOT DORSAL ASPECT -Time 12:34 10:58 -Correct Patient Yes Yes -Correct Side, Site, Position Yes Yes -Correct Procedure Yes Yes -Procedure Performed Yes Yes -Type of Procedure Debridement Debridement -Clinical Debridement Subcutaneous Subcutaneous -Post Debridement Size (cm) - Length 20.0 19.0 -Post Debridement Size (cm) - Width 3.6 2.4 -Post Debridement Size (cm) - Depth 0.1 0.1 -Total Square Cm 72.00 45.60 -Wound/Ulcer Outcome Not Healed Not Healed -Ulcer Cleansing Rinsed/ Rinsed/ Irrigated with Irrigated with Saline Saline -Foul Odor after Cleansing No No -Bioengineered Tissue No No -Cetacaine [place] No No -Bleeding Controlled with Pressure Pressure -Treatment Response Procedure Procedure Tolerated Well Tolerated Well #3- LT FOOT DORSAL ASPECT -Time 12:37 10:58 -Correct Patient Yes Yes -Correct Side, Site, Position Yes Yes -Correct Procedure Yes Yes -Procedure Performed Yes Yes -Type of Procedure Debridement Debridement -Clinical Debridement Subcutaneous Subcutaneous -Post Debridement Size (cm) - Length 6.5 3.5 -Post Debridement Size (cm) - Width 6.5 7.8 -Post Debridement Size (cm) - Depth 0.1 0.1 -Total Square Cm 42.25 27.30 -Wound/Ulcer Outcome Not Healed Not Healed -Ulcer Cleansing Rinsed/ Rinsed/ Irrigated with Irrigated with Saline Saline -Foul Odor after Cleansing No No -Bioengineered Tissue No No -Cetacaine [place] No No -Bleeding Controlled with Pressure Pressure -Treatment Response Procedure Procedure Tolerated Well Tolerated Well #2- LT GR TOE -Time 12:37 10:58 -Correct Patient Yes Yes -Correct Side, Site, Position Yes Yes -Correct Procedure Yes Yes -Procedure Performed Yes Yes -Type of Procedure Debridement Debridement -Clinical Debridement Subcutaneous Subcutaneous -Post Debridement Size (cm) - Length 2.0 0.6 -Post Debridement Size (cm) - Width 3.0 2.0 -Post Debridement Size (cm) - Depth 0.1 0.1 -Total Square Cm 6.00 1.20 -Wound/Ulcer Outcome Not Healed Not Healed -Ulcer Cleansing Rinsed/ Rinsed/ Irrigated with Irrigated with Saline Saline -Foul Odor after Cleansing No No -Bioengineered Tissue No No -Cetacaine [place] No No -Bleeding Controlled with NA Pressure -Treatment Response Procedure Procedure Tolerated Well Tolerated Well Pain Scale: 0-10 Numeric Is Patient Pain Free? Yes Yes Wound debrided: Right Dorsal Foot Type of Debridement: Excisional debridement Anesthesia Used: 4% Lidocaine Solution Depth: Down to and including healthy tissue, in the subcutaneous layer Percentage of wound debrided: 100 Instrument Used: 7mm curette Tissue Removed: Slough. Amount of bleeding with debridement: Mild Bleeding Controlled with: Pressure Patient tolerated procedure well - Additional Wound Wound debrided: Right Ankle Type of Debridement: Excisional debridement Anesthesia Used: 4% Lidocaine Solution Depth: Down to and including healthy tissue, in the subcutaneous layer Percentage of wound debrided: 100 Instrument Used: 7mm curette Tissue Removed: Slough Amount of bleeding with debridement: Mild Bleeding Controlled with: Pressure Patient tolerated procedure: Patient tolerated procedure well - Additional Wound Wound debrided: Left Dorsal Foot Type of Debridement: Excisional debridement Anesthesia Used: 4% Lidocaine Solution Depth: Down to and including healthy tissue, in the subcutaneous layer Percentage of wound debrided: 100 Instrument Used: 7mm curette Tissue Removed: SLough, Biofilm Amount of bleeding with debridement: Mild Bleeding Controlled with: Pressure Patient tolerated procedure: Patient tolerated procedure well - Additional Wound Wound debrided: Left Great Toe Type of Debridement: Excisional debridement Anesthesia Used: 4% Lidocaine Solution Depth: Down to and including healthy tissue, in the subcutaneous layer Percentage of wound debrided: 100 Instrument Used: 7mm curette Tissue Removed: Slough, fibrin Amount of bleeding with debridement: Mild Bleeding Controlled with: Pressure Patient tolerated procedure: Patient tolerated procedure well Assessment/Plan Active Problems Open wound of left lower extremity (Acute) Open wound of right lower extremity (Acute) Assessment: Open wound to bilateral lower extremity secondary to trauma. Intellectual Disability. Seizure Disorder. Plan: Wound has showed much progress since his last visit. Wound debridement done as documented above. Procedure was well-tolerated. Completed his course of Bactrim. No obvious signs of infection at this time, will monitor. Apply Aquacel extra over all wounds with Adaptic covering. Elevate lower extremities when sitted and in bed. Daily protein supplements and protein rich diet. Exercise as tolerated. Follow-up in 1 week. This note was generated with [email or web address] dictation software. It may contain incorrect words, spelling, and punctuation that were not noted in checking the note before signing.
[2017-08-15 11:23] VITALS: RESP 16; TEMP 37; BMI 31.3
--- NOTE | 2017-08-15 14:06 | PCM.WC.PN ---
(1) Open wound of left lower extremity Status: Acute Qualifiers: Encounter type: subsequent encounter Qualified Code(s): S81.802D - Unspecified open wound, left lower leg, subsequent encounter Code(s): S81.802A - Unspecified open wound, left lower leg, initial encounter (2) MRDD Status: Chronic (3) Open wound of right lower extremity Status: Acute Qualifiers: Encounter type: subsequent encounter Qualified Code(s): S81.801D - Unspecified open wound, right lower leg, subsequent encounter Code(s): S81.801A - Unspecified open wound, right lower leg, initial encounter (4) Cerebral palsy Status: Chronic Code(s): G80.9 - Cerebral palsy, unspecified (5) Seizure disorder Status: Chronic Code(s): G40.909 - Epilepsy, unspecified, not intractable, without status epilepticus Type of Wound Date of Service: 08/15/17 Chief Complaint: Open wounds of bilateral lower extremities s/p fall. History of Wound: Mr. Osborne is a 42yo with PMH of cerebral palsy, seizure disorder and intellectual disability who presented here with his caregiver due to bilateral lower extremity wounds. On 19 July 2017 patient was said to have gone into seizure while in the bathroom and subseqeuntly sustained injuries/wounds to his bilateral lower extremity wounds. He has been to the ER, urgent care, his PCP and finally podiatry before being referred here. Per his caregiver he was initially started on clindamycin however this was recently changed to Bactrim. Wounds are said to be improving since being on antibiotics. He is otherwise said to be at his baseline with no documented chills, fever, nausea, vomiting or change in his bowel habit. He appears well also. Progress of Wound: Improving. No new complaints. - Physical Exam Vital Signs Temp Pulse Resp BP 98.6 F 90 16 118/73 08/15/17 11:23 08/08/17 09:57 08/15/17 11:23 08/08/17 09:57 General: Alert, Cooperative, No apparent distress HEENT: Atraumatic, Normocephalic Oral: Moist Mucosa Neck: Supple Lungs: Normal air movement Cardiovascular: Regular rate Extremities: No cyanosis Skin: Ulcer/ Wound - Bilateral lower extremity. Wound Measurements and Assessment WC - Nurse 1 - General Ulcer Measurement Start: 07/31/17 10:21 Freq: Status: Active Protocol: Activity Type Activity Date Activity User E-Sign Co-Sign Detail Recorded Client Recorded Date Recorded By Document 08/15/17 11:23 [facility] [id number] 08/15/17 11:39 [facility] 08/15/17 11:23 Wound Center Nurse 1 [Ulcer Assessment Protocol: WC.WD.LOC] #5- RT LATERAL ANKLE -Combined with other wound No -Current Size (cm) - Length 0.1 -Current Size (cm) - Width 0.1 -Current Size (cm) - Depth 0.1 -Total Square Cm 0.01 -Photo Taken No -Epithelialization Large 67-100% -Tunneling No -Undermining/Tunneling No -Exudate Amt None Present (0 %) -Moisture (Zelda-wound Skin Appearance Assessed ) -Color (Zelda-wound Skin Appearance) Erythema -Temperature (Zelda-wound Skin No Abnormality Appearance) (Pt Warm) -Tenderness on Palpation (Zelda-wound No Skin Appearance) -Ulcer Cleansing Wound Cleanser -Foul Odor after Cleansing No -Anesthetic Used 5% Lidocaine Gel #4- RT FOOT DORSAL ASPECT -Combined with other wound No -Current Size (cm) - Length 6.3 -Current Size (cm) - Width 1.8 -Current Size (cm) - Depth 0.1 -Total Square Cm 11.34 -Photo Taken No -Epithelialization Medium 34-66% -Tunneling No -Undermining/Tunneling No -Exudate Amt Small (1-33%) -Exudate Type Serosanguineous -Wound Margin Distinct, Outline Attached -Granulation Amt Small (1-33%) -Granulation Quality Red -Slough/Fibrin Yes -Necrosis Amt Large (67-100%) -Necrotic Tissue Type Adherent Slough -Texture (Zelda-wound Skin Appearance) Scarring -Moisture (Zelda-wound Skin Appearance Dry/Scaly ) -Color (Zelda-wound Skin Appearance) Erythema -Temperature (Zelda-wound Skin No Abnormality Appearance) (Pt Warm) -Tenderness on Palpation (Zelda-wound No Skin Appearance) -Ulcer Cleansing Wound Cleanser -Foul Odor after Cleansing No -Anesthetic Used 5% Lidocaine Gel #3- LT FOOT DORSAL ASPECT -Combined with other wound No -Current Size (cm) - Length 1.6 -Current Size (cm) - Width 6.5 -Current Size (cm) - Depth 0.1 -Total Square Cm 10.40 -Photo Taken No -Tunneling No -Undermining/Tunneling No -Exudate Amt Small (1-33%) -Exudate Type Serosanguineous -Wound Margin Distinct, Outline Attached -Granulation Amt Small (1-33%) -Granulation Quality Red -Slough/Fibrin Yes -Necrosis Amt Large (67-100%) -Necrotic Tissue Type Adherent Slough -Texture (Zelda-wound Skin Appearance) Scarring -Moisture (Zelda-wound Skin Appearance Assessed ) -Color (Zelda-wound Skin Appearance) Erythema -Temperature (Zelda-wound Skin No Abnormality Appearance) (Pt Warm) -Tenderness on Palpation (Zelda-wound No Skin Appearance) -Ulcer Cleansing Wound Cleanser -Foul Odor after Cleansing No -Anesthetic Used 5% Lidocaine Gel #2- LT GR TOE -Combined with other wound No -Current Size (cm) - Length 0.5 -Current Size (cm) - Width 1.7 -Current Size (cm) - Depth 0.1 -Total Square Cm 0.85 -Photo Taken No -Tunneling No -Undermining/Tunneling No -Exudate Amt None Present (0 %) -Granulation Amt None Present (0 %) -Slough/Fibrin Yes -Necrosis Amt Large (67-100%) -Necrotic Tissue Type Adherent Slough -Texture (Zelda-wound Skin Appearance) Assessed -Moisture (Zelda-wound Skin Appearance Dry/Scaly ) -Color (Zelda-wound Skin Appearance) Erythema -Temperature (Zelda-wound Skin No Abnormality Appearance) (Pt Warm) -Tenderness on Palpation (Zelda-wound No Skin Appearance) -Ulcer Cleansing Wound Cleanser -Foul Odor after Cleansing No -Anesthetic Used 5% Lidocaine Gel WC - Nurse 2 - General Ulcer CM Notes Start: 07/31/17 10:21 Freq: Status: Active Protocol: Activity Type Activity Date Activity User E-Sign Co-Sign Detail Recorded Client Recorded Date Recorded By Document 08/15/17 12:52 DV [id number] 08/15/17 12:56 DV 08/15/17 12:52 Wound Center Nurse 2 [Procedure/Treatment] #5- RT LATERAL ANKLE -Time 12:53 -Correct Patient Yes -Correct Side, Site, Position Yes -Correct Procedure Yes -Procedure Performed No -Post Debridement Size (cm) - Length 0 -Post Debridement Size (cm) - Width 0 -Post Debridement Size (cm) - Depth 0 -Total Square Cm 0 -Wound/Ulcer Outcome Healed- Epithelialized #4- RT FOOT DORSAL ASPECT -Time 12:54 -Correct Patient Yes -Correct Side, Site, Position Yes -Correct Procedure Yes -Procedure Performed Yes -Type of Procedure Debridement -Clinical Debridement Subcutaneous -Post Debridement Size (cm) - Length 6.5 -Post Debridement Size (cm) - Width 1.9 -Post Debridement Size (cm) - Depth 0.1 -Total Square Cm 12.35 -Wound/Ulcer Outcome Not Healed -Ulcer Cleansing Rinsed/ Irrigated with Saline -Foul Odor after Cleansing No -Bioengineered Tissue No -Cetacaine Dumont No -Bleeding Controlled with Pressure -Treatment Response Procedure Tolerated Well #3- LT FOOT DORSAL ASPECT -Time 12:55 -Correct Patient Yes -Correct Side, Site, Position Yes -Correct Procedure Yes -Procedure Performed Yes -Type of Procedure Debridement -Clinical Debridement Subcutaneous -Post Debridement Size (cm) - Length 1.8 -Post Debridement Size (cm) - Width 1.8 -Post Debridement Size (cm) - Depth 0.1 -Total Square Cm 3.24 -Wound/Ulcer Outcome Not Healed -Ulcer Cleansing Rinsed/ Irrigated with Saline -Foul Odor after Cleansing No -Bioengineered Tissue No -Cetacaine Dumont No -Bleeding Controlled with Pressure -Treatment Response Procedure Tolerated Well #2- LT GR TOE -Time 12:55 -Correct Patient Yes -Correct Side, Site, Position Yes -Correct Procedure Yes -Procedure Performed Yes -Type of Procedure Debridement -Clinical Debridement Subcutaneous -Post Debridement Size (cm) - Length 0.5 -Post Debridement Size (cm) - Width 2.0 -Post Debridement Size (cm) - Depth 0.1 -Total Square Cm 1.00 -Wound/Ulcer Outcome Not Healed -Ulcer Cleansing Rinsed/ Irrigated with Saline -Foul Odor after Cleansing No -Bioengineered Tissue No -Cetacaine Dumont No -Bleeding Controlled with Pressure -Treatment Response Procedure Tolerated Well [See Physician Procedure note for Specifics] Pain Scale: 0-10 Numeric [Pain] -Is Patient Pain Free? Yes Musculoskeletal: No Muscle Wasting Neurological: Cranial nerves II-XII grossly intact Debridement Note Post-Debridement Measurements/Treatment WC - Nurse 2 - General Ulcer CM Notes Start: 07/31/17 10:21 Freq: Status: Active Protocol: Activity Type Activity Date Activity User E-Sign Co-Sign Detail Recorded Client Recorded Date Recorded By Document 07/31/17 12:32 DV [id number] 07/31/17 12:39 DV Document 08/08/17 10:55 DV [id number] 08/08/17 11:16 DV Document 08/15/17 12:52 DV [id number] 08/15/17 12:56 DV 07/31/17 08/08/17 08/15/17 12:32 10:55 12:52 Wound Center Nurse 2 #5- RT LATERAL ANKLE -Time 12:33 10:57 12:53 -Correct Patient Yes Yes Yes -Correct Side, Site, Position Yes Yes Yes -Correct Procedure Yes Yes Yes -Procedure Performed Yes Yes No -Type of Procedure Debridement Debridement -Clinical Debridement Subcutaneous Subcutaneous -Post Debridement Size (cm) - Length 3.5 1.3 0 -Post Debridement Size (cm) - Width 1.3 0.5 0 -Post Debridement Size (cm) - Depth 0.1 0.1 0 -Total Square Cm 4.55 0.65 0 -Wound/Ulcer Outcome Not Healed Not Healed Healed- Epithelialized -Ulcer Cleansing Rinsed/ Rinsed/ Irrigated with Irrigated with Saline Saline -Foul Odor after Cleansing No No -Bioengineered Tissue No No -Cetacaine Dumont No No -Bleeding Controlled with Pressure Pressure -Treatment Response Procedure Procedure Tolerated Well Tolerated Well #4- RT FOOT DORSAL ASPECT -Time 12:34 10:58 12:54 -Correct Patient Yes Yes Yes -Correct Side, Site, Position Yes Yes Yes -Correct Procedure Yes Yes Yes -Procedure Performed Yes Yes Yes -Type of Procedure Debridement Debridement Debridement -Clinical Debridement Subcutaneous Subcutaneous Subcutaneous -Post Debridement Size (cm) - Length 20.0 19.0 6.5 -Post Debridement Size (cm) - Width 3.6 2.4 1.9 -Post Debridement Size (cm) - Depth 0.1 0.1 0.1 -Total Square Cm 72.00 45.60 12.35 -Wound/Ulcer Outcome Not Healed Not Healed Not Healed -Ulcer Cleansing Rinsed/ Rinsed/ Rinsed/ Irrigated with Irrigated with Irrigated with Saline Saline Saline -Foul Odor after Cleansing No No No -Bioengineered Tissue No No No -Cetacaine Dumont No No No -Bleeding Controlled with Pressure Pressure Pressure -Treatment Response Procedure Procedure Procedure Tolerated Well Tolerated Well Tolerated Well #3- LT FOOT DORSAL ASPECT -Time 12:37 10:58 12:55 -Correct Patient Yes Yes Yes -Correct Side, Site, Position Yes Yes Yes -Correct Procedure Yes Yes Yes -Procedure Performed Yes Yes Yes -Type of Procedure Debridement Debridement Debridement -Clinical Debridement Subcutaneous Subcutaneous Subcutaneous -Post Debridement Size (cm) - Length 6.5 3.5 1.8 -Post Debridement Size (cm) - Width 6.5 7.8 1.8 -Post Debridement Size (cm) - Depth 0.1 0.1 0.1 -Total Square Cm 42.25 27.30 3.24 -Wound/Ulcer Outcome Not Healed Not Healed Not Healed -Ulcer Cleansing Rinsed/ Rinsed/ Rinsed/ Irrigated with Irrigated with Irrigated with Saline Saline Saline -Foul Odor after Cleansing No No No -Bioengineered Tissue No No No -Cetacaine Dumont No No No -Bleeding Controlled with Pressure Pressure Pressure -Treatment Response Procedure Procedure Procedure Tolerated Well Tolerated Well Tolerated Well #2- LT GR TOE -Time 12:37 10:58 12:55 -Correct Patient Yes Yes Yes -Correct Side, Site, Position Yes Yes Yes -Correct Procedure Yes Yes Yes -Procedure Performed Yes Yes Yes -Type of Procedure Debridement Debridement Debridement -Clinical Debridement Subcutaneous Subcutaneous Subcutaneous -Post Debridement Size (cm) - Length 2.0 0.6 0.5 -Post Debridement Size (cm) - Width 3.0 2.0 2.0 -Post Debridement Size (cm) - Depth 0.1 0.1 0.1 -Total Square Cm 6.00 1.20 1.00 -Wound/Ulcer Outcome Not Healed Not Healed Not Healed -Ulcer Cleansing Rinsed/ Rinsed/ Rinsed/ Irrigated with Irrigated with Irrigated with Saline Saline Saline -Foul Odor after Cleansing No No No -Bioengineered Tissue No No No -Cetacaine Dumont No No No -Bleeding Controlled with NA Pressure Pressure -Treatment Response Procedure Procedure Procedure Tolerated Well Tolerated Well Tolerated Well Pain Scale: 0-10 Numeric Is Patient Pain Free? Yes Yes Yes Wound debrided: Right Dorsum Foot Wound Grade/Stage: Stage 2 Type of Debridement: Excisional debridement Anesthesia Used: 5% Lidocaine Gel Depth: Down to and including healthy tissue, in the subcutaneous layer Percentage of wound debrided: 100 Instrument Used: 5mm curette Tissue Removed: Slough, Devitalized tissue Severity: Fat Layer Exposed Amount of bleeding with debridement: Mild Bleeding Controlled with: Pressure Patient tolerated procedure well - Additional Wound Wound debrided: Left Dorsum Foot Wound Grade/Stage: Stage 2 Type of Debridement: Excisional debridement Anesthesia Used: 5% Lidocaine Gel Depth: Down to and including healthy tissue, in the subcutaneous layer Percentage of wound debrided: 100 Instrument Used: 5mm curette Tissue Removed: Slough, Fibrin Severity: Fat Layer Exposed Amount of bleeding with debridement: Mild Bleeding Controlled with: Pressure Patient tolerated procedure: Patient tolerated procedure well - Additional Wound Wound debrided: Left Great Toe Wound Grade/Stage: Stage 2 Type of Debridement: Excisional debridement Anesthesia Used: 5% Lidocaine Gel Depth: Down to and including healthy tissue, in the subcutaneous layer Percentage of wound debrided: 100 Instrument Used: 5mm curette Tissue Removed: Slough Severity: Fat Layer Exposed Amount of bleeding with debridement: Mild Bleeding Controlled with: Pressure Patient tolerated procedure: Patient tolerated procedure well Assessment/Plan Assessment: Open wound to bilateral lower extremity secondary to trauma. Intellectual Disability. Seizure Disorder. Plan: Wound continues to show good progress. Wound debridement done as documented above. Procedure was well-tolerated. Apply braulio to left foot dorsum. Continue Aquacel extra over all wounds with Adaptic covering. Elevate lower extremities when sitted and in bed. Daily protein supplements and protein rich diet. Exercise as tolerated. Follow-up in 1 week. This note was generated with [employer] software. It may contain incorrect words, spelling, and punctuation that were not noted in checking the note before signing.
--- NOTE | 2017-08-15 14:11 | PN.PCM_ITS ---
(1) Open wound of left lower extremity Status: Acute Qualifiers: Encounter type: subsequent encounter Qualified Code(s): S81.802D - Unspecified open wound, left lower leg, subsequent encounter Code(s): S81.802A - Unspecified open wound, left lower leg, initial encounter (2) MRDD Status: Chronic (3) Open wound of right lower extremity Status: Acute Qualifiers: Encounter type: subsequent encounter Qualified Code(s): S81.801D - Unspecified open wound, right lower leg, subsequent encounter Code(s): S81.801A - Unspecified open wound, right lower leg, initial encounter (4) Cerebral palsy Status: Chronic Code(s): G80.9 - Cerebral palsy, unspecified (5) Seizure disorder Status: Chronic Code(s): G40.909 - Epilepsy, unspecified, not intractable, without status epilepticus Type of Wound Date of Service: 08/15/17 Chief Complaint: Open wounds of bilateral lower extremities s/p fall. History of Wound: Mr. Osborne is a 42yo with PMH of cerebral palsy, seizure disorder and intellectual disability who presented here with his caregiver due to bilateral lower extremity wounds. On 19 July 2017 patient was said to have gone into seizure while in the bathroom and subseqeuntly sustained injuries /wounds to his bilateral lower extremity wounds. He has been to the ER, urgent care, his PCP and finally podiatry before being referred here. Per his caregiver he was initially started on clindamycin however this was recently changed to Bactrim. Wounds are said to be improving since being on antibiotics. He is otherwise said to be at his baseline with no documented chills, fever, nausea, vomiting or change in his bowel habit. He appears well also. Progress of Wound: Improving. No new complaints. - Physical Exam Vital Signs Temp Pulse Resp BP 98.6 F 90 16 118/73 08/15/17 11:23 08/08/17 09:57 08/15/17 11:23 08/08/17 09:57 General: Alert, Cooperative, No apparent distress HEENT: Atraumatic, Normocephalic Oral: Moist Mucosa Neck: Supple Lungs: Normal air movement Cardiovascular: Regular rate Extremities: No cyanosis Skin: Ulcer/ Wound - Bilateral lower extremity. Wound Measurements and Assessment WC - Nurse 1 - General Ulcer Measurement Start: 07/31/17 10:21 Freq: Status: Active Protocol: Activity Type Activity Date Activity User E-Sign Co-Sign Detail Recorded Client Recorded Date Recorded By Document 08/15/17 11:23 [facility] [id number] 08/15/17 11:39 [facility] 08/15/17 11:23 Wound Center Nurse 1 [Ulcer Assessment Protocol: WC.WD.LOC] #5- RT LATERAL ANKLE -Combined with other wound No -Current Size (cm) - Length 0.1 -Current Size (cm) - Width 0.1 -Current Size (cm) - Depth 0.1 -Total Square Cm 0.01 -Photo Taken No -Epithelialization Large 67-100% -Tunneling No -Undermining/Tunneling No -Exudate Amt None Present (0 %) -Moisture (Zelda-wound Skin Appearance Assessed ) -Color (Zelda-wound Skin Appearance) Erythema -Temperature (Zelda-wound Skin No Abnormality Appearance) (Pt Warm) -Tenderness on Palpation (Zelda-wound No Skin Appearance) -Ulcer Cleansing Wound Cleanser -Foul Odor after Cleansing No -Anesthetic Used 5% Lidocaine Gel #4- RT FOOT DORSAL ASPECT -Combined with other wound No -Current Size (cm) - Length 6.3 -Current Size (cm) - Width 1.8 -Current Size (cm) - Depth 0.1 -Total Square Cm 11.34 -Photo Taken No -Epithelialization Medium 34-66% -Tunneling No -Undermining/Tunneling No -Exudate Amt Small (1-33%) -Exudate Type Serosanguineous -Wound Margin Distinct, Outline Attached -Granulation Amt Small (1-33%) -Granulation Quality Red -Slough/Fibrin Yes -Necrosis Amt Large (67-100%) -Necrotic Tissue Type Adherent Slough -Texture (Zelda-wound Skin Appearance) Scarring -Moisture (Zelda-wound Skin Appearance Dry/Scaly ) -Color (Zelda-wound Skin Appearance) Erythema -Temperature (Zelda-wound Skin No Abnormality Appearance) (Pt Warm) -Tenderness on Palpation (Zelda-wound No Skin Appearance) -Ulcer Cleansing Wound Cleanser -Foul Odor after Cleansing No -Anesthetic Used 5% Lidocaine Gel #3- LT FOOT DORSAL ASPECT -Combined with other wound No -Current Size (cm) - Length 1.6 -Current Size (cm) - Width 6.5 -Current Size (cm) - Depth 0.1 -Total Square Cm 10.40 -Photo Taken No -Tunneling No -Undermining/Tunneling No -Exudate Amt Small (1-33%) -Exudate Type Serosanguineous -Wound Margin Distinct, Outline Attached -Granulation Amt Small (1-33%) -Granulation Quality Red -Slough/Fibrin Yes -Necrosis Amt Large (67-100%) -Necrotic Tissue Type Adherent Slough -Texture (Zelda-wound Skin Appearance) Scarring -Moisture (Zelda-wound Skin Appearance Assessed ) -Color (Zelda-wound Skin Appearance) Erythema -Temperature (Zelda-wound Skin No Abnormality Appearance) (Pt Warm) -Tenderness on Palpation (Zelda-wound No Skin Appearance) -Ulcer Cleansing Wound Cleanser -Foul Odor after Cleansing No -Anesthetic Used 5% Lidocaine Gel #2- LT GR TOE -Combined with other wound No -Current Size (cm) - Length 0.5 -Current Size (cm) - Width 1.7 -Current Size (cm) - Depth 0.1 -Total Square Cm 0.85 -Photo Taken No -Tunneling No -Undermining/Tunneling No -Exudate Amt None Present (0 %) -Granulation Amt None Present (0 %) -Slough/Fibrin Yes -Necrosis Amt Large (67-100%) -Necrotic Tissue Type Adherent Slough -Texture (Zelda-wound Skin Appearance) Assessed -Moisture (Zelda-wound Skin Appearance Dry/Scaly ) -Color (Zelda-wound Skin Appearance) Erythema -Temperature (Zelda-wound Skin No Abnormality Appearance) (Pt Warm) -Tenderness on Palpation (Zelda-wound No Skin Appearance) -Ulcer Cleansing Wound Cleanser -Foul Odor after Cleansing No -Anesthetic Used 5% Lidocaine Gel WC - Nurse 2 - General Ulcer CM Notes Start: 07/31/17 10:21 Freq: Status: Active Protocol: Activity Type Activity Date Activity User E-Sign Co-Sign Detail Recorded Client Recorded Date Recorded By Document 08/15/17 12:52 DV [id number] 08/15/17 12:56 DV 08/15/17 12:52 Wound Center Nurse 2 [Procedure/Treatment] #5- RT LATERAL ANKLE -Time 12:53 -Correct Patient Yes -Correct Side, Site, Position Yes -Correct Procedure Yes -Procedure Performed No -Post Debridement Size (cm) - Length 0 -Post Debridement Size (cm) - Width 0 -Post Debridement Size (cm) - Depth 0 -Total Square Cm 0 -Wound/Ulcer Outcome Healed- Epithelialized #4- RT FOOT DORSAL ASPECT -Time 12:54 -Correct Patient Yes -Correct Side, Site, Position Yes -Correct Procedure Yes -Procedure Performed Yes -Type of Procedure Debridement -Clinical Debridement Subcutaneous -Post Debridement Size (cm) - Length 6.5 -Post Debridement Size (cm) - Width 1.9 -Post Debridement Size (cm) - Depth 0.1 -Total Square Cm 12.35 -Wound/Ulcer Outcome Not Healed -Ulcer Cleansing Rinsed/ Irrigated with Saline -Foul Odor after Cleansing No -Bioengineered Tissue No -Cetacaine Mullens No -Bleeding Controlled with Pressure -Treatment Response Procedure Tolerated Well #3- LT FOOT DORSAL ASPECT -Time 12:55 -Correct Patient Yes -Correct Side, Site, Position Yes -Correct Procedure Yes -Procedure Performed Yes -Type of Procedure Debridement -Clinical Debridement Subcutaneous -Post Debridement Size (cm) - Length 1.8 -Post Debridement Size (cm) - Width 1.8 -Post Debridement Size (cm) - Depth 0.1 -Total Square Cm 3.24 -Wound/Ulcer Outcome Not Healed -Ulcer Cleansing Rinsed/ Irrigated with Saline -Foul Odor after Cleansing No -Bioengineered Tissue No -Cetacaine Mullens No -Bleeding Controlled with Pressure -Treatment Response Procedure Tolerated Well #2- LT GR TOE -Time 12:55 -Correct Patient Yes -Correct Side, Site, Position Yes -Correct Procedure Yes -Procedure Performed Yes -Type of Procedure Debridement -Clinical Debridement Subcutaneous -Post Debridement Size (cm) - Length 0.5 -Post Debridement Size (cm) - Width 2.0 -Post Debridement Size (cm) - Depth 0.1 -Total Square Cm 1.00 -Wound/Ulcer Outcome Not Healed -Ulcer Cleansing Rinsed/ Irrigated with Saline -Foul Odor after Cleansing No -Bioengineered Tissue No -Cetacaine Mullens No -Bleeding Controlled with Pressure -Treatment Response Procedure Tolerated Well [See Physician Procedure note for Specifics] Pain Scale: 0-10 Numeric [Pain] -Is Patient Pain Free? Yes Musculoskeletal: No Muscle Wasting Neurological: Cranial nerves II-XII grossly intact Debridement Note Post-Debridement Measurements/Treatment WC - Nurse 2 - General Ulcer CM Notes Start: 07/31/17 10:21 Freq: Status: Active Protocol: Activity Type Activity Date Activity User E-Sign Co-Sign Detail Recorded Client Recorded Date Recorded By Document 07/31/17 12:32 DV [id number] 07/31/17 12:39 DV Document 08/08/17 10:55 DV [id number] 08/08/17 11:16 DV Document 08/15/17 12:52 DV [id number] 08/15/17 12:56 DV 07/31/17 08/08/17 08/15/17 12:32 10:55 12:52 Wound Center Nurse 2 #5- RT LATERAL ANKLE -Time 12:33 10:57 12:53 -Correct Patient Yes Yes Yes -Correct Side, Site, Position Yes Yes Yes -Correct Procedure Yes Yes Yes -Procedure Performed Yes Yes No -Type of Procedure Debridement Debridement -Clinical Debridement Subcutaneous Subcutaneous -Post Debridement Size (cm) - Length 3.5 1.3 0 -Post Debridement Size (cm) - Width 1.3 0.5 0 -Post Debridement Size (cm) - Depth 0.1 0.1 0 -Total Square Cm 4.55 0.65 0 -Wound/Ulcer Outcome Not Healed Not Healed Healed- Epithelialized -Ulcer Cleansing Rinsed/ Rinsed/ Irrigated with Irrigated with Saline Saline -Foul Odor after Cleansing No No -Bioengineered Tissue No No -Cetacaine Mullens No No -Bleeding Controlled with Pressure Pressure -Treatment Response Procedure Procedure Tolerated Well Tolerated Well #4- RT FOOT DORSAL ASPECT -Time 12:34 10:58 12:54 -Correct Patient Yes Yes Yes -Correct Side, Site, Position Yes Yes Yes -Correct Procedure Yes Yes Yes -Procedure Performed Yes Yes Yes -Type of Procedure Debridement Debridement Debridement -Clinical Debridement Subcutaneous Subcutaneous Subcutaneous -Post Debridement Size (cm) - Length 20.0 19.0 6.5 -Post Debridement Size (cm) - Width 3.6 2.4 1.9 -Post Debridement Size (cm) - Depth 0.1 0.1 0.1 -Total Square Cm 72.00 45.60 12.35 -Wound/Ulcer Outcome Not Healed Not Healed Not Healed -Ulcer Cleansing Rinsed/ Rinsed/ Rinsed/ Irrigated with Irrigated with Irrigated with Saline Saline Saline -Foul Odor after Cleansing No No No -Bioengineered Tissue No No No -Cetacaine Mullens No No No -Bleeding Controlled with Pressure Pressure Pressure -Treatment Response Procedure Procedure Procedure Tolerated Well Tolerated Well Tolerated Well #3- LT FOOT DORSAL ASPECT -Time 12:37 10:58 12:55 -Correct Patient Yes Yes Yes -Correct Side, Site, Position Yes Yes Yes -Correct Procedure Yes Yes Yes -Procedure Performed Yes Yes Yes -Type of Procedure Debridement Debridement Debridement -Clinical Debridement Subcutaneous Subcutaneous Subcutaneous -Post Debridement Size (cm) - Length 6.5 3.5 1.8 -Post Debridement Size (cm) - Width 6.5 7.8 1.8 -Post Debridement Size (cm) - Depth 0.1 0.1 0.1 -Total Square Cm 42.25 27.30 3.24 -Wound/Ulcer Outcome Not Healed Not Healed Not Healed -Ulcer Cleansing Rinsed/ Rinsed/ Rinsed/ Irrigated with Irrigated with Irrigated with Saline Saline Saline -Foul Odor after Cleansing No No No -Bioengineered Tissue No No No -Cetacaine Mullens No No No -Bleeding Controlled with Pressure Pressure Pressure -Treatment Response Procedure Procedure Procedure Tolerated Well Tolerated Well Tolerated Well #2- LT GR TOE -Time 12:37 10:58 12:55 -Correct Patient Yes Yes Yes -Correct Side, Site, Position Yes Yes Yes -Correct Procedure Yes Yes Yes -Procedure Performed Yes Yes Yes -Type of Procedure Debridement Debridement Debridement -Clinical Debridement Subcutaneous Subcutaneous Subcutaneous -Post Debridement Size (cm) - Length 2.0 0.6 0.5 -Post Debridement Size (cm) - Width 3.0 2.0 2.0 -Post Debridement Size (cm) - Depth 0.1 0.1 0.1 -Total Square Cm 6.00 1.20 1.00 -Wound/Ulcer Outcome Not Healed Not Healed Not Healed -Ulcer Cleansing Rinsed/ Rinsed/ Rinsed/ Irrigated with Irrigated with Irrigated with Saline Saline Saline -Foul Odor after Cleansing No No No -Bioengineered Tissue No No No -Cetacaine Mullens No No No -Bleeding Controlled with NA Pressure Pressure -Treatment Response Procedure Procedure Procedure Tolerated Well Tolerated Well Tolerated Well Pain Scale: 0-10 Numeric Is Patient Pain Free? Yes Yes Yes Wound debrided: Right Dorsum Foot Wound Grade/Stage: Stage 2 Type of Debridement: Excisional debridement Anesthesia Used: 5% Lidocaine Gel Depth: Down to and including healthy tissue, in the subcutaneous layer Percentage of wound debrided: 100 Instrument Used: 5mm curette Tissue Removed: Slough, Devitalized tissue Severity: Fat Layer Exposed Amount of bleeding with debridement: Mild Bleeding Controlled with: Pressure Patient tolerated procedure well - Additional Wound Wound debrided: Left Dorsum Foot Wound Grade/Stage: Stage 2 Type of Debridement: Excisional debridement Anesthesia Used: 5% Lidocaine Gel Depth: Down to and including healthy tissue, in the subcutaneous layer Percentage of wound debrided: 100 Instrument Used: 5mm curette Tissue Removed: Slough, Fibrin Severity: Fat Layer Exposed Amount of bleeding with debridement: Mild Bleeding Controlled with: Pressure Patient tolerated procedure: Patient tolerated procedure well - Additional Wound Wound debrided: Left Great Toe Wound Grade/Stage: Stage 2 Type of Debridement: Excisional debridement Anesthesia Used: 5% Lidocaine Gel Depth: Down to and including healthy tissue, in the subcutaneous layer Percentage of wound debrided: 100 Instrument Used: 5mm curette Tissue Removed: Slough Severity: Fat Layer Exposed Amount of bleeding with debridement: Mild Bleeding Controlled with: Pressure Patient tolerated procedure: Patient tolerated procedure well Assessment/Plan Assessment: Open wound to bilateral lower extremity secondary to trauma. Intellectual Disability. Seizure Disorder. Plan: Wound continues to show good progress. Wound debridement done as documented above. Procedure was well-tolerated. Apply braulio to left foot dorsum. Continue Aquacel extra over all wounds with Adaptic covering. Elevate lower extremities when sitted and in bed. Daily protein supplements and protein rich diet. Exercise as tolerated. Follow-up in 1 week. This note was generated with Pokenation software. It may contain incorrect words, spelling, and punctuation that were not noted in checking the note before signing.
== END 2017-08-21 23:59 ==
LOC: WC 10:15
PROVIDERS: Family Provider Internal Medicine; PCP Internal Medicine; Visit Provider Internal Medicine
DX: S91.032A Puncture wound without foreign body, left ankle, initial encounter (principal); S91.102A Unspecified open wound of left great toe without damage to nail, initial encounter; W19.XXXA Unspecified fall, initial encounter; G40.909 Epilepsy, unspecified, not intractable, without status epilepticus; F79 Unspecified intellectual disabilities; G80.9 Cerebral palsy, unspecified; S81.801A Unspecified open wound, right lower leg, initial encounter; S81.802A Unspecified open wound, left lower leg, initial encounter
CPT/HCPCS: 11042; 11045; 99213; G0463

== ENCOUNTER 2017-09-12 10:30 | Outpatient (RCR) | payer MEDICAID, MEDICARE, SELFPAY ==
[2017-08-08 09:57] VITALS: BP 118/73
[2017-08-22 01:06] VITALS: PULSE 90; RESP 16; TEMP 37
[2017-08-22 10:38] VITALS: BP 118/76; PULSE 70; RESP 16; TEMP 36.6; BMI 31.3
--- NOTE | 2017-08-22 15:15 | PCM.WC.PN ---
(1) Open wound of left lower extremity Status: Acute Qualifiers: Code(s): S81.802A - Unspecified open wound, left lower leg, initial encounter (2) Open wound of right lower extremity Status: Acute Qualifiers: Code(s): S81.801A - Unspecified open wound, right lower leg, initial encounter (3) MRDD Status: Chronic Type of Wound Date of Service: 08/22/17 Chief Complaint: Open wounds of bilateral lower extremities s/p fall. History of Wound: Mr. Osborne is a 42yo with PMH of cerebral palsy, seizure disorder and intellectual disability who presented here with his caregiver due to bilateral lower extremity wounds. On 19 July 2017 patient was said to have gone into seizure while in the bathroom and subseqeuntly sustained injuries/wounds to his bilateral lower extremity wounds. He has been to the ER, urgent care, his PCP and finally podiatry before being referred here. Per his caregiver he was initially started on clindamycin however this was recently changed to Bactrim. Wounds are said to be improving since being on antibiotics. He is otherwise said to be at his baseline with no documented chills, fever, nausea, vomiting or change in his bowel habit. He appears well also. Progress of Wound: Improving. No new complaints. - Physical Exam Vital Signs Temp Pulse Resp BP 98 F 70 16 118/76 08/22/17 10:38 08/22/17 10:38 08/22/17 10:38 08/22/17 10:38 General: Alert, Cooperative, No apparent distress HEENT: Atraumatic, Normocephalic Oral: Moist Mucosa Neck: Supple Lungs: Normal air movement Cardiovascular: Regular rate Extremities: No cyanosis Wound Measurements and Assessment - Nurse 1 - General Ulcer Measurement Start: 08/22/17 10:38 Freq: Status: Active Protocol: Activity Type Activity Date Activity User E-Sign Co-Sign Detail Recorded Client Recorded Date Recorded By Document 08/22/17 10:38 UNIQUE [id number] 08/22/17 10:48 DL 08/22/17 10:38 Wound Center Nurse 1 [Ulcer Assessment Protocol: WC.WD.LOC] #4- RT FOOT DORSAL ASPECT -Current Size (cm) - Length 0.1 -Current Size (cm) - Width 0.1 -Current Size (cm) - Depth 0.1 -Total Square Cm 0.01 -Photo Taken No -Exudate Amt None Present (0 %) -Wound Margin Flat & Intact -Granulation Amt Large (67-100%) -Granulation Quality [place] -Necrosis Amt Small (1-33%) -Necrotic Tissue Type Adherent Slough -Structure Exposed N/A -Texture (Zelda-wound Skin Appearance) Scarring -Moisture (Zelda-wound Skin Appearance No Abnormality ) -Color (Zelda-wound Skin Appearance) No Abnormality -Temperature (Zelda-wound Skin No Abnormality Appearance) (Pt Warm) -Ulcer Cleansing Rinsed/ Irrigated with Saline -Foul Odor after Cleansing No #3- LT FOOT DORSAL ASPECT -Current Size (cm) - Length 0.8 -Current Size (cm) - Width 6.5 -Current Size (cm) - Depth 0.1 -Total Square Cm 5.20 -Photo Taken No -Epithelialization Medium 34-66% -Exudate Amt Small (1-33%) -Exudate Type Serosanguineous -Wound Margin Distinct, Outline Attached -Granulation Amt Medium (34-66%) -Granulation Quality [place] -Necrosis Amt Medium (34-66%) -Necrotic Tissue Type Adherent Slough -Structure Exposed N/A -Texture (Zelda-wound Skin Appearance) Scarring -Moisture (Zelda-wound Skin Appearance No Abnormality ) -Color (Zelda-wound Skin Appearance) No Abnormality -Temperature (Zelda-wound Skin No Abnormality Appearance) (Pt Warm) -Ulcer Cleansing Rinsed/ Irrigated with Saline -Foul Odor after Cleansing No -Anesthetic Used 4% Lidocaine Solution #2- LT GR TOE -Current Size (cm) - Length 0.1 -Current Size (cm) - Width 0.1 -Current Size (cm) - Depth 0.1 -Total Square Cm 0.01 -Photo Taken No -Epithelialization Large 67-100% -Exudate Amt None Present (0 %) -Wound Margin Flat & Intact -Granulation Amt None Present (0 %) -Necrosis Amt Small (1-33%) -Necrotic Tissue Type Adherent Slough -Structure Exposed N/A -Texture (Zelda-wound Skin Appearance) Scarring -Moisture (Zelda-wound Skin Appearance No Abnormality ) -Color (Zelda-wound Skin Appearance) No Abnormality -Temperature (Zelda-wound Skin No Abnormality Appearance) (Pt Warm) -Ulcer Cleansing Rinsed/ Irrigated with Saline -Foul Odor after Cleansing No -Anesthetic Used 4% Lidocaine Solution BANDAR - Nurse 2 - General Ulcer CM Notes Start: 08/22/17 10:38 Freq: Status: Active Protocol: Activity Type Activity Date Activity User E-Sign Co-Sign Detail Recorded Client Recorded Date Recorded By Document 08/22/17 11:26 DV [id number] 08/22/17 11:34 DV 08/22/17 11:26 Wound Center Nurse 2 [Procedure/Treatment] #4- RT FOOT DORSAL ASPECT -Time 11:30 -Correct Patient Yes -Correct Side, Site, Position Yes -Correct Procedure Yes -Procedure Performed Yes -Type of Procedure Debridement -Clinical Debridement Subcutaneous -Post Debridement Size (cm) - Length 0.8 -Post Debridement Size (cm) - Width 0.2 -Post Debridement Size (cm) - Depth 0.1 -Total Square Cm 0.16 #3- LT FOOT DORSAL ASPECT -Time 11:27 -Correct Patient Yes -Correct Side, Site, Position Yes -Correct Procedure Yes -Procedure Performed Yes -Type of Procedure Debridement -Clinical Debridement Subcutaneous -Post Debridement Size (cm) - Length 1.0 -Post Debridement Size (cm) - Width 5.0 -Post Debridement Size (cm) - Depth 0.1 -Total Square Cm 5.00 -Wound/Ulcer Outcome Not Healed -Ulcer Cleansing Rinsed/ Irrigated with Saline -Foul Odor after Cleansing No -Bioengineered Tissue No -Cetacaine [place] No -Bleeding Controlled with Pressure -Treatment Response Procedure Tolerated Well #2- LT GR TOE -Time 11:27 -Correct Patient Yes -Correct Side, Site, Position Yes -Correct Procedure Yes -Procedure Performed Yes -Type of Procedure Debridement -Clinical Debridement Subcutaneous -Post Debridement Size (cm) - Length 0.1 -Post Debridement Size (cm) - Width 0.2 -Post Debridement Size (cm) - Depth 0.1 -Total Square Cm 0.02 -Wound/Ulcer Outcome Not Healed -Ulcer Cleansing Rinsed/ Irrigated with Saline -Foul Odor after Cleansing No -Bioengineered Tissue No -Cetacaine [place] No -Bleeding Controlled with Pressure -Treatment Response Procedure Not Tolerated Well [See Physician Procedure note for Specifics] Pain Scale: 0-10 Numeric [Pain] -Is Patient Pain Free? Yes Musculoskeletal: No Muscle Wasting Psych/Mental Status: Normal Affect Debridement Note Post-Debridement Measurements/Treatment WC - Nurse 2 - General Ulcer CM Notes Start: 08/22/17 10:38 Freq: Status: Active Protocol: Activity Type Activity Date Activity User E-Sign Co-Sign Detail Recorded Client Recorded Date Recorded By Document 08/22/17 11:26 DV [id number] 08/22/17 11:34 DV 08/22/17 11:26 Wound Center Nurse 2 #4- RT FOOT DORSAL ASPECT -Time 11:30 -Correct Patient Yes -Correct Side, Site, Position Yes -Correct Procedure Yes -Procedure Performed Yes -Type of Procedure Debridement -Clinical Debridement Subcutaneous -Post Debridement Size (cm) - Length 0.8 -Post Debridement Size (cm) - Width 0.2 -Post Debridement Size (cm) - Depth 0.1 -Total Square Cm 0.16 #3- LT FOOT DORSAL ASPECT -Time 11:27 -Correct Patient Yes -Correct Side, Site, Position Yes -Correct Procedure Yes -Procedure Performed Yes -Type of Procedure Debridement -Clinical Debridement Subcutaneous -Post Debridement Size (cm) - Length 1.0 -Post Debridement Size (cm) - Width 5.0 -Post Debridement Size (cm) - Depth 0.1 -Total Square Cm 5.00 -Wound/Ulcer Outcome Not Healed -Ulcer Cleansing Rinsed/ Irrigated with Saline -Foul Odor after Cleansing No -Bioengineered Tissue No -Cetacaine [place] No -Bleeding Controlled with Pressure -Treatment Response Procedure Tolerated Well #2- LT GR TOE -Time 11:27 -Correct Patient Yes -Correct Side, Site, Position Yes -Correct Procedure Yes -Procedure Performed Yes -Type of Procedure Debridement -Clinical Debridement Subcutaneous -Post Debridement Size (cm) - Length 0.1 -Post Debridement Size (cm) - Width 0.2 -Post Debridement Size (cm) - Depth 0.1 -Total Square Cm 0.02 -Wound/Ulcer Outcome Not Healed -Ulcer Cleansing Rinsed/ Irrigated with Saline -Foul Odor after Cleansing No -Bioengineered Tissue No -Cetacaine [place] No -Bleeding Controlled with Pressure -Treatment Response Procedure Not Tolerated Well Pain Scale: 0-10 Numeric Is Patient Pain Free? Yes Wound debrided: Left Dorsum Foot Wound Grade/Stage: Stage 2 Type of Debridement: Excisional debridement Anesthesia Used: 4% Lidocaine Solution Depth: Down to and including healthy tissue, in the subcutaneous layer Percentage of wound debrided: 100 Instrument Used: 7mm curette Tissue Removed: Slough, devitalized tissue Severity: Fat Layer Exposed Amount of bleeding with debridement: Mild Bleeding Controlled with: Pressure Patient tolerated procedure well - Additional Wound Wound debrided: Left great toe Wound Grade/Stage: Stage I Type of Debridement: Excisional debridement Anesthesia Used: 4% Lidocaine Solution Depth: Down to and including healthy tissue, in the subcutaneous layer Percentage of wound debrided: 100 Instrument Used: 5mm curette Tissue Removed: Devitalized tissue Severity: Fat Layer Exposed Amount of bleeding with debridement: Mild Bleeding Controlled with: Pressure - Additional Wound Wound debrided: Right dorsum foot Wound Grade/Stage: Stage I Type of Debridement: Excisional debridement Anesthesia Used: 4% Lidocaine Solution Depth: Down to and including healthy tissue, in the subcutaneous layer Percentage of wound debrided: 100 Instrument Used: 5mm curette Tissue Removed: Devitalized tissue Severity: Fat Layer Exposed Amount of bleeding with debridement: Mild Bleeding Controlled with: Pressure Patient tolerated procedure: Patient tolerated procedure well Assessment/Plan Assessment: Open wound to bilateral lower extremity secondary to trauma. Intellectual Disability. Seizure Disorder. Plan: Wound continues to show great progress. Wound debridement done as documented above. Procedure was well-tolerated. Continue braulio to left foot dorsum with Adaptic covering. Continue Aquacel extra over all wounds with Adaptic covering. Elevate lower extremities when sitted and in bed. Daily protein supplements and protein rich diet. Exercise as tolerated. Follow-up in 1 week. This note was generated with [employer] software. It may contain incorrect words, spelling, and punctuation that were not noted in checking the note before signing.
--- NOTE | 2017-08-22 15:20 | PN.PCM_ITS ---
(1) Open wound of left lower extremity Status: Acute Qualifiers: Code(s): S81.802A - Unspecified open wound, left lower leg, initial encounter (2) Open wound of right lower extremity Status: Acute Qualifiers: Code(s): S81.801A - Unspecified open wound, right lower leg, initial encounter (3) MRDD Status: Chronic Type of Wound Date of Service: 08/22/17 Chief Complaint: Open wounds of bilateral lower extremities s/p fall. History of Wound: Mr. Osborne is a 42yo with PMH of cerebral palsy, seizure disorder and intellectual disability who presented here with his caregiver due to bilateral lower extremity wounds. On 19 July 2017 patient was said to have gone into seizure while in the bathroom and subseqeuntly sustained injuries /wounds to his bilateral lower extremity wounds. He has been to the ER, urgent care, his PCP and finally podiatry before being referred here. Per his caregiver he was initially started on clindamycin however this was recently changed to Bactrim. Wounds are said to be improving since being on antibiotics. He is otherwise said to be at his baseline with no documented chills, fever, nausea, vomiting or change in his bowel habit. He appears well also. Progress of Wound: Improving. No new complaints. - Physical Exam Vital Signs Temp Pulse Resp BP 98 F 70 16 118/76 08/22/17 10:38 08/22/17 10:38 08/22/17 10:38 08/22/17 10:38 General: Alert, Cooperative, No apparent distress HEENT: Atraumatic, Normocephalic Oral: Moist Mucosa Neck: Supple Lungs: Normal air movement Cardiovascular: Regular rate Extremities: No cyanosis Wound Measurements and Assessment - Nurse 1 - General Ulcer Measurement Start: 08/22/17 10:38 Freq: Status: Active Protocol: Activity Type Activity Date Activity User E-Sign Co-Sign Detail Recorded Client Recorded Date Recorded By Document 08/22/17 10:38 UNIQUE [id number] 08/22/17 10:48 DL 08/22/17 10:38 Wound Center Nurse 1 [Ulcer Assessment Protocol: WC.WD.LOC] #4- RT FOOT DORSAL ASPECT -Current Size (cm) - Length 0.1 -Current Size (cm) - Width 0.1 -Current Size (cm) - Depth 0.1 -Total Square Cm 0.01 -Photo Taken No -Exudate Amt None Present (0 %) -Wound Margin Flat & Intact -Granulation Amt Large (67-100%) -Granulation Quality [place] -Necrosis Amt Small (1-33%) -Necrotic Tissue Type Adherent Slough -Structure Exposed N/A -Texture (Zelda-wound Skin Appearance) Scarring -Moisture (Zelda-wound Skin Appearance No Abnormality ) -Color (Zelda-wound Skin Appearance) No Abnormality -Temperature ([place]-wound Skin No Abnormality Appearance) (Pt Warm) -Ulcer Cleansing Rinsed/ Irrigated with Saline -Foul Odor after Cleansing No #3- LT FOOT DORSAL ASPECT -Current Size (cm) - Length 0.8 -Current Size (cm) - Width 6.5 -Current Size (cm) - Depth 0.1 -Total Square Cm 5.20 -Photo Taken No -Epithelialization Medium 34-66% -Exudate Amt Small (1-33%) -Exudate Type Serosanguineous -Wound Margin Distinct, Outline Attached -Granulation Amt Medium (34-66%) -Granulation Quality [place] -Necrosis Amt Medium (34-66%) -Necrotic Tissue Type Adherent Slough -Structure Exposed N/A -Texture (Zelda-wound Skin Appearance) Scarring -Moisture (Zelda-wound Skin Appearance No Abnormality ) -Color (Zelda-wound Skin Appearance) No Abnormality -Temperature ([place]el[place]-wound Skin No Abnormality Appearance) (Pt Warm) -Ulcer Cleansing Rinsed/ Irrigated with Saline -Foul Odor after Cleansing No -Anesthetic Used 4% Lidocaine Solution #2- LT GR TOE -Current Size (cm) - Length 0.1 -Current Size (cm) - Width 0.1 -Current Size (cm) - Depth 0.1 -Total Square Cm 0.01 -Photo Taken No -Epithelialization Large 67-100% -Exudate Amt None Present (0 %) -Wound Margin Flat & Intact -Granulation Amt None Present (0 %) -Necrosis Amt Small (1-33%) -Necrotic Tissue Type Adherent Slough -Structure Exposed N/A -Texture (Zelda-wound Skin Appearance) Scarring -Moisture (Zelda-wound Skin Appearance No Abnormality ) -Color (Zelda-wound Skin Appearance) No Abnormality -Temperature (Zelda-wound Skin No Abnormality Appearance) (Pt Warm) -Ulcer Cleansing Rinsed/ Irrigated with Saline -Foul Odor after Cleansing No -Anesthetic Used 4% Lidocaine Solution BANDAR - Nurse 2 - General Ulcer CM Notes Start: 08/22/17 10:38 Freq: Status: Active Protocol: Activity Type Activity Date Activity User E-Sign Co-Sign Detail Recorded Client Recorded Date Recorded By Document 08/22/17 11:26 DV [id number] 08/22/17 11:34 DV 08/22/17 11:26 Wound Center Nurse 2 [Procedure/Treatment] #4- RT FOOT DORSAL ASPECT -Time 11:30 -Correct Patient Yes -Correct Side, Site, Position Yes -Correct Procedure Yes -Procedure Performed Yes -Type of Procedure Debridement -Clinical Debridement Subcutaneous -Post Debridement Size (cm) - Length 0.8 -Post Debridement Size (cm) - Width 0.2 -Post Debridement Size (cm) - Depth 0.1 -Total Square Cm 0.16 #3- LT FOOT DORSAL ASPECT -Time 11:27 -Correct Patient Yes -Correct Side, Site, Position Yes -Correct Procedure Yes -Procedure Performed Yes -Type of Procedure Debridement -Clinical Debridement Subcutaneous -Post Debridement Size (cm) - Length 1.0 -Post Debridement Size (cm) - Width 5.0 -Post Debridement Size (cm) - Depth 0.1 -Total Square Cm 5.00 -Wound/Ulcer Outcome Not Healed -Ulcer Cleansing Rinsed/ Irrigated with Saline -Foul Odor after Cleansing No -Bioengineered Tissue No -Cetacaine [place] No -Bleeding Controlled with Pressure -Treatment Response Procedure Tolerated Well #2- LT GR TOE -Time 11:27 -Correct Patient Yes -Correct Side, Site, Position Yes -Correct Procedure Yes -Procedure Performed Yes -Type of Procedure Debridement -Clinical Debridement Subcutaneous -Post Debridement Size (cm) - Length 0.1 -Post Debridement Size (cm) - Width 0.2 -Post Debridement Size (cm) - Depth 0.1 -Total Square Cm 0.02 -Wound/Ulcer Outcome Not Healed -Ulcer Cleansing Rinsed/ Irrigated with Saline -Foul Odor after Cleansing No -Bioengineered Tissue No -Cetacaine [place] No -Bleeding Controlled with Pressure -Treatment Response Procedure Not Tolerated Well [See Physician Procedure note for Specifics] Pain Scale: 0-10 Numeric [Pain] -Is Patient Pain Free? Yes Musculoskeletal: No Muscle Wasting Psych/Mental Status: Normal Affect Debridement Note Post-Debridement Measurements/Treatment WC - Nurse 2 - General Ulcer CM Notes Start: 08/22/17 10:38 Freq: Status: Active Protocol: Activity Type Activity Date Activity User E-Sign Co-Sign Detail Recorded Client Recorded Date Recorded By Document 08/22/17 11:26 DV [id number] 08/22/17 11:34 DV 08/22/17 11:26 Wound Center Nurse 2 #4- RT FOOT DORSAL ASPECT -Time 11:30 -Correct Patient Yes -Correct Side, Site, Position Yes -Correct Procedure Yes -Procedure Performed Yes -Type of Procedure Debridement -Clinical Debridement Subcutaneous -Post Debridement Size (cm) - Length 0.8 -Post Debridement Size (cm) - Width 0.2 -Post Debridement Size (cm) - Depth 0.1 -Total Square Cm 0.16 #3- LT FOOT DORSAL ASPECT -Time 11:27 -Correct Patient Yes -Correct Side, Site, Position Yes -Correct Procedure Yes -Procedure Performed Yes -Type of Procedure Debridement -Clinical Debridement Subcutaneous -Post Debridement Size (cm) - Length 1.0 -Post Debridement Size (cm) - Width 5.0 -Post Debridement Size (cm) - Depth 0.1 -Total Square Cm 5.00 -Wound/Ulcer Outcome Not Healed -Ulcer Cleansing Rinsed/ Irrigated with Saline -Foul Odor after Cleansing No -Bioengineered Tissue No -Cetacaine [place] No -Bleeding Controlled with Pressure -Treatment Response Procedure Tolerated Well #2- LT GR TOE -Time 11:27 -Correct Patient Yes -Correct Side, Site, Position Yes -Correct Procedure Yes -Procedure Performed Yes -Type of Procedure Debridement -Clinical Debridement Subcutaneous -Post Debridement Size (cm) - Length 0.1 -Post Debridement Size (cm) - Width 0.2 -Post Debridement Size (cm) - Depth 0.1 -Total Square Cm 0.02 -Wound/Ulcer Outcome Not Healed -Ulcer Cleansing Rinsed/ Irrigated with Saline -Foul Odor after Cleansing No -Bioengineered Tissue No -Cetacaine [place] No -Bleeding Controlled with Pressure -Treatment Response Procedure Not Tolerated Well Pain Scale: 0-10 Numeric Is Patient Pain Free? Yes Wound debrided: Left Dorsum Foot Wound Grade/Stage: Stage 2 Type of Debridement: Excisional debridement Anesthesia Used: 4% Lidocaine Solution Depth: Down to and including healthy tissue, in the subcutaneous layer Percentage of wound debrided: 100 Instrument Used: 7mm curette Tissue Removed: Slough, devitalized tissue Severity: Fat Layer Exposed Amount of bleeding with debridement: Mild Bleeding Controlled with: Pressure Patient tolerated procedure well - Additional Wound Wound debrided: Left great toe Wound Grade/Stage: Stage I Type of Debridement: Excisional debridement Anesthesia Used: 4% Lidocaine Solution Depth: Down to and including healthy tissue, in the subcutaneous layer Percentage of wound debrided: 100 Instrument Used: 5mm curette Tissue Removed: Devitalized tissue Severity: Fat Layer Exposed Amount of bleeding with debridement: Mild Bleeding Controlled with: Pressure - Additional Wound Wound debrided: Right dorsum foot Wound Grade/Stage: Stage I Type of Debridement: Excisional debridement Anesthesia Used: 4% Lidocaine Solution Depth: Down to and including healthy tissue, in the subcutaneous layer Percentage of wound debrided: 100 Instrument Used: 5mm curette Tissue Removed: Devitalized tissue Severity: Fat Layer Exposed Amount of bleeding with debridement: Mild Bleeding Controlled with: Pressure Patient tolerated procedure: Patient tolerated procedure well Assessment/Plan Assessment: Open wound to bilateral lower extremity secondary to trauma. Intellectual Disability. Seizure Disorder. Plan: Wound continues to show great progress. Wound debridement done as documented above. Procedure was well-tolerated. Continue braulio to left foot dorsum with Adaptic covering. Continue Aquacel extra over all wounds with Adaptic covering. Elevate lower extremities when sitted and in bed. Daily protein supplements and protein rich diet. Exercise as tolerated. Follow-up in 1 week. This note was generated with [employer] software. It may contain incorrect words, spelling, and punctuation that were not noted in checking the note before signing.
[2017-08-29 10:58] VITALS: BP 100/66; PULSE 78; RESP 16; TEMP 37.3; BMI 31.3
--- NOTE | 2017-08-29 14:22 | PCM.WC.PN ---
(1) Open wound of left lower extremity Status: Acute Current Visit: Yes Qualifiers: Code(s): S81.802A - Unspecified open wound, left lower leg, initial encounter (2) Open wound of right lower extremity Status: Acute Current Visit: No Qualifiers: Code(s): S81.801A - Unspecified open wound, right lower leg, initial encounter (3) MRDD Status: Chronic Current Visit: No Type of Wound Date of Service: 08/29/17 Chief Complaint: Open wounds of bilateral lower extremities s/p fall. History of Wound: Mr. Osborne is a 42yo with PMH of cerebral palsy, seizure disorder and intellectual disability who presented here with his caregiver due to bilateral lower extremity wounds. On 19 July 2017 patient was said to have gone into seizure while in the bathroom and subseqeuntly sustained injuries/wounds to his bilateral lower extremity wounds. He has been to the ER, urgent care, his PCP and finally podiatry before being referred here. Per his caregiver he was initially started on clindamycin however this was recently changed to Bactrim. Wounds are said to be improving since being on antibiotics. He is otherwise said to be at his baseline with no documented chills, fever, nausea, vomiting or change in his bowel habit. He appears well also. Progress of Wound: Improving. No new complaints. - Physical Exam Vital Signs Temp Pulse Resp BP 99.1 F 78 16 100/66 08/29/17 10:58 08/29/17 10:58 08/29/17 10:58 08/29/17 10:58 General: Alert, Cooperative, No apparent distress HEENT: Atraumatic Oral: Moist Mucosa Neck: Supple Lungs: Normal air movement Cardiovascular: Regular rate Extremities: No cyanosis Skin: Ulcer/ Wound Wound Measurements and Assessment WC - Nurse 1 - General Ulcer Measurement Start: 08/22/17 10:38 Freq: Status: Active Protocol: Activity Type Activity Date Activity User E-Sign Co-Sign Detail Recorded Client Recorded Date Recorded By Document 08/29/17 10:58 [facility] [id number] 08/29/17 11:13 [facility] 08/29/17 10:58 Wound Center Nurse 1 [Ulcer Assessment Protocol: WC.WD.LOC] #4- RT FOOT DORSAL ASPECT -Combined with other wound No -Current Size (cm) - Length 0 -Current Size (cm) - Width 0 -Current Size (cm) - Depth 0 -Total Square Cm 0 -Date of Last Picture (Recall this 08/29/17 field) -Photo Taken Yes -Epithelialization Large 67-100% -Texture (Zelda-wound Skin Appearance) Scarring -Moisture (Zelda-wound Skin Appearance Assessed ) -Color (Zelda-wound Skin Appearance) Assessed -Temperature (Zelda-wound Skin No Abnormality Appearance) (Pt Warm) -Tenderness on Palpation (Zelda-wound No Skin Appearance) -Ulcer Cleansing Rinsed/ Irrigated with Saline -Foul Odor after Cleansing No #3- LT FOOT DORSAL ASPECT -Combined with other wound No -Current Size (cm) - Length 1.4 -Current Size (cm) - Width 5.5 -Current Size (cm) - Depth 0.1 -Total Square Cm 7.70 -Photo Taken No -Epithelialization Small 1-33% -Tunneling No -Undermining/Tunneling No -Exudate Amt Small (1-33%) -Exudate Type Serosanguineous -Wound Margin Distinct, Outline Attached -Granulation Amt Large (67-100%) -Granulation Quality [place] -Slough/Fibrin Yes -Necrosis Amt Small (1-33%) -Necrotic Tissue Type Adherent Slough -Structure Exposed None/Limited to Skin Breakdown -Texture (Zelda-wound Skin Appearance) Scarring -Moisture (Zelda-wound Skin Appearance Dry/Scaly ) -Color (Zelda-wound Skin Appearance) Assessed -Temperature (Zelda-wound Skin No Abnormality Appearance) (Pt Warm) -Tenderness on Palpation (Zelda-wound No Skin Appearance) -Ulcer Cleansing Rinsed/ Irrigated with Saline -Foul Odor after Cleansing No -Anesthetic Used 4% Lidocaine Solution #2- LT GR TOE -Combined with other wound No -Current Size (cm) - Length 0 -Current Size (cm) - Width 0 -Current Size (cm) - Depth 0 -Total Square Cm 0 -Date of Last Picture (Recall this 08/29/17 field) -Photo Taken Yes -Epithelialization Large 67-100% WC - Nurse 2 - General Ulcer CM Notes Start: 08/22/17 10:38 Freq: Status: Active Protocol: Activity Type Activity Date Activity User E-Sign Co-Sign Detail Recorded Client Recorded Date Recorded By Document 08/29/17 12:49 SAMANTHA [id number] 08/29/17 12:55 JS 08/29/17 12:49 Wound Center Nurse 2 [Procedure/Treatment] #4- RT FOOT DORSAL ASPECT -Time 12:53 -Correct Patient Yes -Correct Side, Site, Position Yes -Correct Procedure Yes -Procedure Performed No -Post Debridement Size (cm) - Length 0 -Post Debridement Size (cm) - Width 0 -Post Debridement Size (cm) - Depth 0 -Total Square Cm 0 -Wound/Ulcer Outcome Healed- Epithelialized -Ulcer Cleansing Not Cleansed -Foul Odor after Cleansing No -Bioengineered Tissue No -Bleeding Controlled with NA #3- LT FOOT DORSAL ASPECT -Time 12:54 -Correct Patient Yes -Correct Side, Site, Position Yes -Correct Procedure Yes -Procedure Performed Yes -Type of Procedure Debridement -Clinical Debridement Subcutaneous -Post Debridement Size (cm) - Length 1.1 -Post Debridement Size (cm) - Width 3.5 -Post Debridement Size (cm) - Depth 0.1 -Total Square Cm 3.85 -Wound/Ulcer Outcome Not Healed -Ulcer Cleansing Rinsed/ Irrigated with Saline -Foul Odor after Cleansing No -Bioengineered Tissue No -Bleeding Controlled with Pressure -Treatment Response Procedure Tolerated Well #2- LT GR TOE -Time 12:54 -Correct Patient Yes -Correct Side, Site, Position Yes -Correct Procedure Yes -Procedure Performed No -Post Debridement Size (cm) - Length 0 -Post Debridement Size (cm) - Width 0 -Post Debridement Size (cm) - Depth 0 -Total Square Cm 0 -Wound/Ulcer Outcome Healed- Epithelialized -Ulcer Cleansing Not Cleansed -Foul Odor after Cleansing No -Bioengineered Tissue No -Bleeding Controlled with NA [See Physician Procedure note for Specifics] Pain Scale: 0-10 Numeric [Pain] -Is Patient Pain Free? Yes Musculoskeletal: No Muscle Wasting Psych/Mental Status: Normal Affect Debridement Note Post-Debridement Measurements/Treatment WC - Nurse 2 - General Ulcer CM Notes Start: 08/22/17 10:38 Freq: Status: Active Protocol: Activity Type Activity Date Activity User E-Sign Co-Sign Detail Recorded Client Recorded Date Recorded By Document 08/22/17 11:26 DV [id number] 08/22/17 11:34 DV Document 08/29/17 12:49 JS [id number] 08/29/17 12:55 JS 08/22/17 08/29/17 11:26 12:49 Wound Center Nurse 2 #4- RT FOOT DORSAL ASPECT -Time 11:30 12:53 -Correct Patient Yes Yes -Correct Side, Site, Position Yes Yes -Correct Procedure Yes Yes -Procedure Performed Yes No -Type of Procedure Debridement -Clinical Debridement Subcutaneous -Post Debridement Size (cm) - Length 0.8 0 -Post Debridement Size (cm) - Width 0.2 0 -Post Debridement Size (cm) - Depth 0.1 0 -Total Square Cm 0.16 0 -Wound/Ulcer Outcome Healed- Epithelialized -Ulcer Cleansing Not Cleansed -Foul Odor after Cleansing No -Bioengineered Tissue No -Bleeding Controlled with NA #3- LT FOOT DORSAL ASPECT -Time 11:27 12:54 -Correct Patient Yes Yes -Correct Side, Site, Position Yes Yes -Correct Procedure Yes Yes -Procedure Performed Yes Yes -Type of Procedure Debridement Debridement -Clinical Debridement Subcutaneous Subcutaneous -Post Debridement Size (cm) - Length 1.0 1.1 -Post Debridement Size (cm) - Width 5.0 3.5 -Post Debridement Size (cm) - Depth 0.1 0.1 -Total Square Cm 5.00 3.85 -Wound/Ulcer Outcome Not Healed Not Healed -Ulcer Cleansing Rinsed/ Rinsed/ Irrigated with Irrigated with Saline Saline -Foul Odor after Cleansing No No -Bioengineered Tissue No No -Cetacaine [place] No -Bleeding Controlled with Pressure Pressure -Treatment Response Procedure Procedure Tolerated Well Tolerated Well #2- LT GR TOE -Time 11:27 12:54 -Correct Patient Yes Yes -Correct Side, Site, Position Yes Yes -Correct Procedure Yes Yes -Procedure Performed Yes No -Type of Procedure Debridement -Clinical Debridement Subcutaneous -Post Debridement Size (cm) - Length 0.1 0 -Post Debridement Size (cm) - Width 0.2 0 -Post Debridement Size (cm) - Depth 0.1 0 -Total Square Cm 0.02 0 -Wound/Ulcer Outcome Not Healed Healed- Epithelialized -Ulcer Cleansing Rinsed/ Not Cleansed Irrigated with Saline -Foul Odor after Cleansing No No -Bioengineered Tissue No No -Cetacaine [place] No -Bleeding Controlled with Pressure NA -Treatment Response Procedure Not Tolerated Well Pain Scale: 0-10 Numeric Is Patient Pain Free? Yes Yes Wound debrided: Left Dorsum Foot Wound Grade/Stage: Stage II Type of Debridement: Excisional debridement Anesthesia Used: 4% Lidocaine Solution Depth: Down to and including healthy tissue, in the subcutaneous layer Percentage of wound debrided: 100 Instrument Used: 5mm curette Tissue Removed: Slough and Devitalized tissue. Severity: Fat Layer Exposed Amount of bleeding with debridement: Mild Bleeding Controlled with: Pressure Patient tolerated procedure well Assessment/Plan Active Problems Open wound of left lower extremity (Acute) Assessment: Open wound left foot. Open wound right lower extremity -Healed. Open wound Left great toe - Healed. Intellectual Disability. Seizure Disorder. Plan: All other wounds are healed save for the left dorsum. Debridement done as documented above. Continue braulio to left foot dorsum with Adaptic covering. Elevate lower extremities when sitted and in bed. Daily protein supplements and protein rich diet. Exercise as tolerated. Aquaphor to other skin area. Follow-up in 1 week. This note was generated with [employer] dictation software. It may contain incorrect words, spelling, and punctuation that were not noted in checking the note before signing.
--- NOTE | 2017-08-29 14:26 | PN.PCM_ITS ---
(1) Open wound of left lower extremity Status: Acute Current Visit: Yes Qualifiers: Code(s): S81.802A - Unspecified open wound, left lower leg, initial encounter (2) Open wound of right lower extremity Status: Acute Current Visit: No Qualifiers: Code(s): S81.801A - Unspecified open wound, right lower leg, initial encounter (3) MRDD Status: Chronic Current Visit: No Type of Wound Date of Service: 08/29/17 Chief Complaint: Open wounds of bilateral lower extremities s/p fall. History of Wound: Mr. Osborne is a 42yo with PMH of cerebral palsy, seizure disorder and intellectual disability who presented here with his caregiver due to bilateral lower extremity wounds. On 19 July 2017 patient was said to have gone into seizure while in the bathroom and subseqeuntly sustained injuries /wounds to his bilateral lower extremity wounds. He has been to the ER, urgent care, his PCP and finally podiatry before being referred here. Per his caregiver he was initially started on clindamycin however this was recently changed to Bactrim. Wounds are said to be improving since being on antibiotics. He is otherwise said to be at his baseline with no documented chills, fever, nausea, vomiting or change in his bowel habit. He appears well also. Progress of Wound: Improving. No new complaints. - Physical Exam Vital Signs Temp Pulse Resp BP 99.1 F 78 16 100/66 08/29/17 10:58 08/29/17 10:58 08/29/17 10:58 08/29/17 10:58 General: Alert, Cooperative, No apparent distress HEENT: Atraumatic Oral: Moist Mucosa Neck: Supple Lungs: Normal air movement Cardiovascular: Regular rate Extremities: No cyanosis Skin: Ulcer/ Wound Wound Measurements and Assessment WC - Nurse 1 - General Ulcer Measurement Start: 08/22/17 10:38 Freq: Status: Active Protocol: Activity Type Activity Date Activity User E-Sign Co-Sign Detail Recorded Client Recorded Date Recorded By Document 08/29/17 10:58 [facility] [id number] 08/29/17 11:13 [facility] 08/29/17 10:58 Wound Center Nurse 1 [Ulcer Assessment Protocol: WC.WD.LOC] #4- RT FOOT DORSAL ASPECT -Combined with other wound No -Current Size (cm) - Length 0 -Current Size (cm) - Width 0 -Current Size (cm) - Depth 0 -Total Square Cm 0 -Date of Last Picture (Recall this 08/29/17 field) -Photo Taken Yes -Epithelialization Large 67-100% -Texture (Zelda-wound Skin Appearance) Scarring -Moisture (Zelda-wound Skin Appearance Assessed ) -Color (Zelda-wound Skin Appearance) Assessed -Temperature (Zelda-wound Skin No Abnormality Appearance) (Pt Warm) -Tenderness on Palpation (Zelda-wound No Skin Appearance) -Ulcer Cleansing Rinsed/ Irrigated with Saline -Foul Odor after Cleansing No #3- LT FOOT DORSAL ASPECT -Combined with other wound No -Current Size (cm) - Length 1.4 -Current Size (cm) - Width 5.5 -Current Size (cm) - Depth 0.1 -Total Square Cm 7.70 -Photo Taken No -Epithelialization Small 1-33% -Tunneling No -Undermining/Tunneling No -Exudate Amt Small (1-33%) -Exudate Type Serosanguineous -Wound Margin Distinct, Outline Attached -Granulation Amt Large (67-100%) -Granulation Quality [place] -Slough/Fibrin Yes -Necrosis Amt Small (1-33%) -Necrotic Tissue Type Adherent Slough -Structure Exposed None/Limited to Skin Breakdown -Texture (Zelda-wound Skin Appearance) Scarring -Moisture (Zelda-wound Skin Appearance Dry/Scaly ) -Color (Zelda-wound Skin Appearance) Assessed -Temperature (Zelda-wound Skin No Abnormality Appearance) (Pt Warm) -Tenderness on Palpation (Zelda-wound No Skin Appearance) -Ulcer Cleansing Rinsed/ Irrigated with Saline -Foul Odor after Cleansing No -Anesthetic Used 4% Lidocaine Solution #2- LT GR TOE -Combined with other wound No -Current Size (cm) - Length 0 -Current Size (cm) - Width 0 -Current Size (cm) - Depth 0 -Total Square Cm 0 -Date of Last Picture (Recall this 08/29/17 field) -Photo Taken Yes -Epithelialization Large 67-100% WC - Nurse 2 - General Ulcer CM Notes Start: 08/22/17 10:38 Freq: Status: Active Protocol: Activity Type Activity Date Activity User E-Sign Co-Sign Detail Recorded Client Recorded Date Recorded By Document 08/29/17 12:49 SAMANTHA [id number] 08/29/17 12:55 JS 08/29/17 12:49 Wound Center Nurse 2 [Procedure/Treatment] #4- RT FOOT DORSAL ASPECT -Time 12:53 -Correct Patient Yes -Correct Side, Site, Position Yes -Correct Procedure Yes -Procedure Performed No -Post Debridement Size (cm) - Length 0 -Post Debridement Size (cm) - Width 0 -Post Debridement Size (cm) - Depth 0 -Total Square Cm 0 -Wound/Ulcer Outcome Healed- Epithelialized -Ulcer Cleansing Not Cleansed -Foul Odor after Cleansing No -Bioengineered Tissue No -Bleeding Controlled with NA #3- LT FOOT DORSAL ASPECT -Time 12:54 -Correct Patient Yes -Correct Side, Site, Position Yes -Correct Procedure Yes -Procedure Performed Yes -Type of Procedure Debridement -Clinical Debridement Subcutaneous -Post Debridement Size (cm) - Length 1.1 -Post Debridement Size (cm) - Width 3.5 -Post Debridement Size (cm) - Depth 0.1 -Total Square Cm 3.85 -Wound/Ulcer Outcome Not Healed -Ulcer Cleansing Rinsed/ Irrigated with Saline -Foul Odor after Cleansing No -Bioengineered Tissue No -Bleeding Controlled with Pressure -Treatment Response Procedure Tolerated Well #2- LT GR TOE -Time 12:54 -Correct Patient Yes -Correct Side, Site, Position Yes -Correct Procedure Yes -Procedure Performed No -Post Debridement Size (cm) - Length 0 -Post Debridement Size (cm) - Width 0 -Post Debridement Size (cm) - Depth 0 -Total Square Cm 0 -Wound/Ulcer Outcome Healed- Epithelialized -Ulcer Cleansing Not Cleansed -Foul Odor after Cleansing No -Bioengineered Tissue No -Bleeding Controlled with NA [See Physician Procedure note for Specifics] Pain Scale: 0-10 Numeric [Pain] -Is Patient Pain Free? Yes Musculoskeletal: No Muscle Wasting Psych/Mental Status: Normal Affect Debridement Note Post-Debridement Measurements/Treatment WC - Nurse 2 - General Ulcer CM Notes Start: 08/22/17 10:38 Freq: Status: Active Protocol: Activity Type Activity Date Activity User E-Sign Co-Sign Detail Recorded Client Recorded Date Recorded By Document 08/22/17 11:26 DV [id number] 08/22/17 11:34 DV Document 08/29/17 12:49 JS [id number] 08/29/17 12:55 JS 08/22/17 08/29/17 11:26 12:49 Wound Center Nurse 2 #4- RT FOOT DORSAL ASPECT -Time 11:30 12:53 -Correct Patient Yes Yes -Correct Side, Site, Position Yes Yes -Correct Procedure Yes Yes -Procedure Performed Yes No -Type of Procedure Debridement -Clinical Debridement Subcutaneous -Post Debridement Size (cm) - Length 0.8 0 -Post Debridement Size (cm) - Width 0.2 0 -Post Debridement Size (cm) - Depth 0.1 0 -Total Square Cm 0.16 0 -Wound/Ulcer Outcome Healed- Epithelialized -Ulcer Cleansing Not Cleansed -Foul Odor after Cleansing No -Bioengineered Tissue No -Bleeding Controlled with NA #3- LT FOOT DORSAL ASPECT -Time 11:27 12:54 -Correct Patient Yes Yes -Correct Side, Site, Position Yes Yes -Correct Procedure Yes Yes -Procedure Performed Yes Yes -Type of Procedure Debridement Debridement -Clinical Debridement Subcutaneous Subcutaneous -Post Debridement Size (cm) - Length 1.0 1.1 -Post Debridement Size (cm) - Width 5.0 3.5 -Post Debridement Size (cm) - Depth 0.1 0.1 -Total Square Cm 5.00 3.85 -Wound/Ulcer Outcome Not Healed Not Healed -Ulcer Cleansing Rinsed/ Rinsed/ Irrigated with Irrigated with Saline Saline -Foul Odor after Cleansing No No -Bioengineered Tissue No No -Cetacaine [place] No -Bleeding Controlled with Pressure Pressure -Treatment Response Procedure Procedure Tolerated Well Tolerated Well #2- LT GR TOE -Time 11:27 12:54 -Correct Patient Yes Yes -Correct Side, Site, Position Yes Yes -Correct Procedure Yes Yes -Procedure Performed Yes No -Type of Procedure Debridement -Clinical Debridement Subcutaneous -Post Debridement Size (cm) - Length 0.1 0 -Post Debridement Size (cm) - Width 0.2 0 -Post Debridement Size (cm) - Depth 0.1 0 -Total Square Cm 0.02 0 -Wound/Ulcer Outcome Not Healed Healed- Epithelialized -Ulcer Cleansing Rinsed/ Not Cleansed Irrigated with Saline -Foul Odor after Cleansing No No -Bioengineered Tissue No No -Cetacaine [place] No -Bleeding Controlled with Pressure NA -Treatment Response Procedure Not Tolerated Well Pain Scale: 0-10 Numeric Is Patient Pain Free? Yes Yes Wound debrided: Left Dorsum Foot Wound Grade/Stage: Stage II Type of Debridement: Excisional debridement Anesthesia Used: 4% Lidocaine Solution Depth: Down to and including healthy tissue, in the subcutaneous layer Percentage of wound debrided: 100 Instrument Used: 5mm curette Tissue Removed: Slough and Devitalized tissue. Severity: Fat Layer Exposed Amount of bleeding with debridement: Mild Bleeding Controlled with: Pressure Patient tolerated procedure well Assessment/Plan Active Problems Open wound of left lower extremity (Acute) Assessment: Open wound left foot. Open wound right lower extremity -Healed. Open wound Left great toe - Healed. Intellectual Disability. Seizure Disorder. Plan: All other wounds are healed save for the left dorsum. Debridement done as documented above. Continue braulio to left foot dorsum with Adaptic covering. Elevate lower extremities when sitted and in bed. Daily protein supplements and protein rich diet. Exercise as tolerated. Aquaphor to other skin area. Follow-up in 1 week. This note was generated with [employer] dictation software. It may contain incorrect words, spelling, and punctuation that were not noted in checking the note before signing.
[2017-09-05 10:40] VITALS: BP 108/76; PULSE 80; RESP 20; TEMP 37.2; BMI 31.3
--- NOTE | 2017-09-05 11:30 | PCM.WC.PN ---
(1) Open wound of left lower extremity Status: Acute Current Visit: Yes Qualifiers: Code(s): S81.802A - Unspecified open wound, left lower leg, initial encounter (2) Open wound of right lower extremity Status: Acute Current Visit: No Qualifiers: Code(s): S81.801A - Unspecified open wound, right lower leg, initial encounter (3) MRDD Status: Chronic Current Visit: No Type of Wound Date of Service: 09/05/17 Chief Complaint: Open wounds of bilateral lower extremities s/p fall. History of Wound: Mr. Osborne is a 42yo with PMH of cerebral palsy, seizure disorder and intellectual disability who presented here with his caregiver due to bilateral lower extremity wounds. On 19 July 2017 patient was said to have gone into seizure while in the bathroom and subseqeuntly sustained injuries/wounds to his bilateral lower extremity wounds. He has been to the ER, urgent care, his PCP and finally podiatry before being referred here. Per his caregiver he was initially started on clindamycin however this was recently changed to Bactrim. Wounds are said to be improving since being on antibiotics. He is otherwise said to be at his baseline with no documented chills, fever, nausea, vomiting or change in his bowel habit. He appears well also. Progress of Wound: Improving. No new complaints. - Physical Exam Vital Signs Temp Pulse Resp BP 98.9 F 80 20 H 108/76 09/05/17 10:40 09/05/17 10:40 09/05/17 10:40 09/05/17 10:40 General: Alert, Cooperative, No apparent distress HEENT: Atraumatic, Normocephalic Oral: Moist Mucosa Neck: Supple Lungs: Normal air movement Cardiovascular: Regular rate Extremities: No cyanosis Skin: Ulcer/ Wound - Left lower extremity. Wound Measurements and Assessment BANDAR - Nurse 1 - General Ulcer Measurement Start: 08/22/17 10:38 Freq: Status: Active Protocol: Activity Type Activity Date Activity User E-Sign Co-Sign Detail Recorded Client Recorded Date Recorded By Document 09/05/17 10:40 SAMANTHA [id number] 09/05/17 10:46 SAMANTHA 09/05/17 10:40 Wound Center Nurse 1 [Ulcer Assessment Protocol: BANDAR.WD.LOC] #3- LT FOOT DORSAL ASPECT -Combined with other wound No -Current Size (cm) - Length 0.8 -Current Size (cm) - Width 1.9 -Current Size (cm) - Depth 0.1 -Total Square Cm 1.52 -Date of Last Picture (Recall this 08/29/17 field) -Photo Taken No -Epithelialization Small 1-33% -Tunneling No -Undermining/Tunneling No -Circular Undermining No -Classification - Thickness Full Thickness without Exposed Support Structure -Exudate Amt Small (1-33%) -Exudate Type Serosanguineous -Wound Margin Distinct, Outline Attached -Granulation Quality Hyper- granulation [place] Red -Slough/Fibrin No -Necrosis Amt None Present (0 %) -Necrotic Tissue Type Adherent Slough -Structure Exposed None/Limited to Skin Breakdown -Texture ([place]-wound Skin Appearance) Scarring -Moisture ([place]da-wound Skin Appearance No Abnormality ) -Color ([place]elda-wound Skin Appearance) No Abnormality -Temperature (Zelda-wound Skin No Abnormality Appearance) (Pt Warm) -Tenderness on Palpation ([place]-wound No Skin Appearance) -Ulcer Cleansing Rinsed/ Irrigated with Saline -Foul Odor after Cleansing No -Anesthetic Used 4% Lidocaine Solution WC - Nurse 2 - General Ulcer CM Notes Start: 08/22/17 10:38 Freq: Status: Active Protocol: Activity Type Activity Date Activity User E-Sign Co-Sign Detail Recorded Client Recorded Date Recorded By Document 09/05/17 11:08 DV [id number] 09/05/17 11:12 DV 09/05/17 11:08 Wound Center Nurse 2 [Procedure/Treatment] -Time 11:08 -Correct Patient Yes -Correct Side, Site, Position Yes -Correct Procedure Yes -Procedure Performed Yes -Type of Procedure Debridement -Clinical Debridement Subcutaneous -Post Debridement Size (cm) - Length 0.3 -Post Debridement Size (cm) - Width 2.6 -Post Debridement Size (cm) - Depth 0.1 -Total Square Cm 0.78 -Wound/Ulcer Outcome Not Healed -Ulcer Cleansing Rinsed/ Irrigated with Saline -Foul Odor after Cleansing No -Bioengineered Tissue No -Bleeding Controlled with Pressure -Treatment Response Procedure Tolerated Well [See Physician Procedure note for Specifics] Pain Scale: 0-10 Numeric [Pain] -Is Patient Pain Free? Yes Musculoskeletal: No Muscle Wasting Neurological: Cranial nerves II-XII grossly intact Psych/Mental Status: Normal Affect Debridement Note Post-Debridement Measurements/Treatment WC - Nurse 2 - General Ulcer CM Notes Start: 08/22/17 10:38 Freq: Status: Active Protocol: Activity Type Activity Date Activity User E-Sign Co-Sign Detail Recorded Client Recorded Date Recorded By Document 08/22/17 11:26 DV [id number] 08/22/17 11:34 DV Document 08/29/17 12:49 JS [id number] 08/29/17 12:55 JS Document 09/05/17 11:08 DV [id number] 09/05/17 11:12 DV 08/22/17 08/29/17 09/05/17 11:26 12:49 11:08 Wound Center Nurse 2 #4- RT FOOT DORSAL ASPECT -Time 11:30 12:53 -Correct Patient Yes Yes -Correct Side, Site, Position Yes Yes -Correct Procedure Yes Yes -Procedure Performed Yes No -Type of Procedure Debridement -Clinical Debridement Subcutaneous -Post Debridement Size (cm) - Length 0.8 0 -Post Debridement Size (cm) - Width 0.2 0 -Post Debridement Size (cm) - Depth 0.1 0 -Total Square Cm 0.16 0 -Wound/Ulcer Outcome Healed- Epithelialized -Ulcer Cleansing Not Cleansed -Foul Odor after Cleansing No -Bioengineered Tissue No -Bleeding Controlled with NA #3- LT FOOT DORSAL ASPECT -Time 11:27 12:54 11:08 -Correct Patient Yes Yes Yes -Correct Side, Site, Position Yes Yes Yes -Correct Procedure Yes Yes Yes -Procedure Performed Yes Yes Yes -Type of Procedure Debridement Debridement Debridement -Clinical Debridement Subcutaneous Subcutaneous Subcutaneous -Post Debridement Size (cm) - Length 1.0 1.1 0.3 -Post Debridement Size (cm) - Width 5.0 3.5 2.6 -Post Debridement Size (cm) - Depth 0.1 0.1 0.1 -Total Square Cm 5.00 3.85 0.78 -Wound/Ulcer Outcome Not Healed Not Healed Not Healed -Ulcer Cleansing Rinsed/ Rinsed/ Rinsed/ Irrigated with Irrigated with Irrigated with Saline Saline Saline -Foul Odor after Cleansing No No No -Bioengineered Tissue No No No -Cetacaine [place] No -Bleeding Controlled with Pressure Pressure Pressure -Treatment Response Procedure Procedure Procedure Tolerated Well Tolerated Well Tolerated Well #2- LT GR TOE -Time 11:27 12:54 -Correct Patient Yes Yes -Correct Side, Site, Position Yes Yes -Correct Procedure Yes Yes -Procedure Performed Yes No -Type of Procedure Debridement -Clinical Debridement Subcutaneous -Post Debridement Size (cm) - Length 0.1 0 -Post Debridement Size (cm) - Width 0.2 0 -Post Debridement Size (cm) - Depth 0.1 0 -Total Square Cm 0.02 0 -Wound/Ulcer Outcome Not Healed Healed- Epithelialized -Ulcer Cleansing Rinsed/ Not Cleansed Irrigated with Saline -Foul Odor after Cleansing No No -Bioengineered Tissue No No -Cetacaine [place] No -Bleeding Controlled with Pressure NA -Treatment Response Procedure Not Tolerated Well Pain Scale: 0-10 Numeric Is Patient Pain Free? Yes Yes Yes Wound debrided: Left Foot. Dorsum. Wound Grade/Stage: Stage II Anesthesia Used: 4% Lidocaine Solution Depth: Down to and including healthy tissue, in the subcutaneous layer Percentage of wound debrided: 100 Instrument Used: 5mm curette Tissue Removed: Slough and devitalized tissue Severity: Fat Layer Exposed Amount of bleeding with debridement: Mild Bleeding Controlled with: Pressure Patient tolerated procedure well Assessment/Plan Active Problems Open wound of left lower extremity (Acute) Assessment: Open wound left foot. Open wound right lower extremity -Healed. Open wound Left great toe - Healed. Intellectual Disability. Seizure Disorder. Plan: Progressive improvement of the left dorsal foot wound. Debridement done as documented above. Continue promogran to left foot dorsum with Adaptic covering. Elevate lower extremities when sitted and in bed. Daily protein supplements and protein rich diet. Exercise as tolerated. Continue aquaphor to other skin area. Follow-up in 1 week. This note was generated with [employer] dictation software. It may contain incorrect words, spelling, and punctuation that were not noted in checking the note before signing.
--- NOTE | 2017-09-05 11:33 | PN.PCM_ITS ---
(1) Open wound of left lower extremity Status: Acute Current Visit: Yes Qualifiers: Code(s): S81.802A - Unspecified open wound, left lower leg, initial encounter (2) Open wound of right lower extremity Status: Acute Current Visit: No Qualifiers: Code(s): S81.801A - Unspecified open wound, right lower leg, initial encounter (3) MRDD Status: Chronic Current Visit: No Type of Wound Date of Service: 09/05/17 Chief Complaint: Open wounds of bilateral lower extremities s/p fall. History of Wound: Mr. Osborne is a 42yo with PMH of cerebral palsy, seizure disorder and intellectual disability who presented here with his caregiver due to bilateral lower extremity wounds. On 19 July 2017 patient was said to have gone into seizure while in the bathroom and subseqeuntly sustained injuries /wounds to his bilateral lower extremity wounds. He has been to the ER, urgent care, his PCP and finally podiatry before being referred here. Per his caregiver he was initially started on clindamycin however this was recently changed to Bactrim. Wounds are said to be improving since being on antibiotics. He is otherwise said to be at his baseline with no documented chills, fever, nausea, vomiting or change in his bowel habit. He appears well also. Progress of Wound: Improving. No new complaints. - Physical Exam Vital Signs Temp Pulse Resp BP 98.9 F 80 20 H 108/76 09/05/17 10:40 09/05/17 10:40 09/05/17 10:40 09/05/17 10:40 General: Alert, Cooperative, No apparent distress HEENT: Atraumatic, Normocephalic Oral: Moist Mucosa Neck: Supple Lungs: Normal air movement Cardiovascular: Regular rate Extremities: No cyanosis Skin: Ulcer/ Wound - Left lower extremity. Wound Measurements and Assessment BANDAR - Nurse 1 - General Ulcer Measurement Start: 08/22/17 10:38 Freq: Status: Active Protocol: Activity Type Activity Date Activity User E-Sign Co-Sign Detail Recorded Client Recorded Date Recorded By Document 09/05/17 10:40 SAMANTHA [id number] 09/05/17 10:46 SAMANTHA 09/05/17 10:40 Wound Center Nurse 1 [Ulcer Assessment Protocol: BANDAR.WD.LOC] #3- LT FOOT DORSAL ASPECT -Combined with other wound No -Current Size (cm) - Length 0.8 -Current Size (cm) - Width 1.9 -Current Size (cm) - Depth 0.1 -Total Square Cm 1.52 -Date of Last Picture (Recall this 08/29/17 field) -Photo Taken No -Epithelialization Small 1-33% -Tunneling No -Undermining/Tunneling No -Circular Undermining No -Classification - Thickness Full Thickness without Exposed Support Structure -Exudate Amt Small (1-33%) -Exudate Type Serosanguineous -Wound Margin Distinct, Outline Attached -Granulation Quality Hyper- granulation [place] Red -Slough/Fibrin No -Necrosis Amt None Present (0 %) -Necrotic Tissue Type Adherent Slough -Structure Exposed None/Limited to Skin Breakdown -Texture (Zelda-wound Skin Appearance) Scarring -Moisture (Zelda-wound Skin Appearance No Abnormality ) -Color (Zelda-wound Skin Appearance) No Abnormality -Temperature (Zelda-wound Skin No Abnormality Appearance) (Pt Warm) -Tenderness on Palpation (Zelda-wound No Skin Appearance) -Ulcer Cleansing Rinsed/ Irrigated with Saline -Foul Odor after Cleansing No -Anesthetic Used 4% Lidocaine Solution WC - Nurse 2 - General Ulcer CM Notes Start: 08/22/17 10:38 Freq: Status: Active Protocol: Activity Type Activity Date Activity User E-Sign Co-Sign Detail Recorded Client Recorded Date Recorded By Document 09/05/17 11:08 DV [id number] 09/05/17 11:12 DV 09/05/17 11:08 Wound Center Nurse 2 [Procedure/Treatment] -Time 11:08 -Correct Patient Yes -Correct Side, Site, Position Yes -Correct Procedure Yes -Procedure Performed Yes -Type of Procedure Debridement -Clinical Debridement Subcutaneous -Post Debridement Size (cm) - Length 0.3 -Post Debridement Size (cm) - Width 2.6 -Post Debridement Size (cm) - Depth 0.1 -Total Square Cm 0.78 -Wound/Ulcer Outcome Not Healed -Ulcer Cleansing Rinsed/ Irrigated with Saline -Foul Odor after Cleansing No -Bioengineered Tissue No -Bleeding Controlled with Pressure -Treatment Response Procedure Tolerated Well [See Physician Procedure note for Specifics] Pain Scale: 0-10 Numeric [Pain] -Is Patient Pain Free? Yes Musculoskeletal: No Muscle Wasting Neurological: Cranial nerves II-XII grossly intact Psych/Mental Status: Normal Affect Debridement Note Post-Debridement Measurements/Treatment WC - Nurse 2 - General Ulcer CM Notes Start: 08/22/17 10:38 Freq: Status: Active Protocol: Activity Type Activity Date Activity User E-Sign Co-Sign Detail Recorded Client Recorded Date Recorded By Document 08/22/17 11:26 DV [id number] 08/22/17 11:34 DV Document 08/29/17 12:49 JS [email or web address] 08/29/17 12:55 JS Document 09/05/17 11:08 DV [id number] 09/05/17 11:12 DV 08/22/17 08/29/17 09/05/17 11:26 12:49 11:08 Wound Center Nurse 2 #4- RT FOOT DORSAL ASPECT -Time 11:30 12:53 -Correct Patient Yes Yes -Correct Side, Site, Position Yes Yes -Correct Procedure Yes Yes -Procedure Performed Yes No -Type of Procedure Debridement -Clinical Debridement Subcutaneous -Post Debridement Size (cm) - Length 0.8 0 -Post Debridement Size (cm) - Width 0.2 0 -Post Debridement Size (cm) - Depth 0.1 0 -Total Square Cm 0.16 0 -Wound/Ulcer Outcome Healed- Epithelialized -Ulcer Cleansing Not Cleansed -Foul Odor after Cleansing No -Bioengineered Tissue No -Bleeding Controlled with NA #3- LT FOOT DORSAL ASPECT -Time 11:27 12:54 11:08 -Correct Patient Yes Yes Yes -Correct Side, Site, Position Yes Yes Yes -Correct Procedure Yes Yes Yes -Procedure Performed Yes Yes Yes -Type of Procedure Debridement Debridement Debridement -Clinical Debridement Subcutaneous Subcutaneous Subcutaneous -Post Debridement Size (cm) - Length 1.0 1.1 0.3 -Post Debridement Size (cm) - Width 5.0 3.5 2.6 -Post Debridement Size (cm) - Depth 0.1 0.1 0.1 -Total Square Cm 5.00 3.85 0.78 -Wound/Ulcer Outcome Not Healed Not Healed Not Healed -Ulcer Cleansing Rinsed/ Rinsed/ Rinsed/ Irrigated with Irrigated with Irrigated with Saline Saline Saline -Foul Odor after Cleansing No No No -Bioengineered Tissue No No No -Cetacaine [place] No -Bleeding Controlled with Pressure Pressure Pressure -Treatment Response Procedure Procedure Procedure Tolerated Well Tolerated Well Tolerated Well #2- LT GR TOE -Time 11:27 12:54 -Correct Patient Yes Yes -Correct Side, Site, Position Yes Yes -Correct Procedure Yes Yes -Procedure Performed Yes No -Type of Procedure Debridement -Clinical Debridement Subcutaneous -Post Debridement Size (cm) - Length 0.1 0 -Post Debridement Size (cm) - Width 0.2 0 -Post Debridement Size (cm) - Depth 0.1 0 -Total Square Cm 0.02 0 -Wound/Ulcer Outcome Not Healed Healed- Epithelialized -Ulcer Cleansing Rinsed/ Not Cleansed Irrigated with Saline -Foul Odor after Cleansing No No -Bioengineered Tissue No No -Cetacaine [place] No -Bleeding Controlled with Pressure NA -Treatment Response Procedure Not Tolerated Well Pain Scale: 0-10 Numeric Is Patient Pain Free? Yes Yes Yes Wound debrided: Left Foot. Dorsum. Wound Grade/Stage: Stage II Anesthesia Used: 4% Lidocaine Solution Depth: Down to and including healthy tissue, in the subcutaneous layer Percentage of wound debrided: 100 Instrument Used: 5mm curette Tissue Removed: Slough and devitalized tissue Severity: Fat Layer Exposed Amount of bleeding with debridement: Mild Bleeding Controlled with: Pressure Patient tolerated procedure well Assessment/Plan Active Problems Open wound of left lower extremity (Acute) Assessment: Open wound left foot. Open wound right lower extremity -Healed. Open wound Left great toe - Healed. Intellectual Disability. Seizure Disorder. Plan: Progressive improvement of the left dorsal foot wound. Debridement done as documented above. Continue promogran to left foot dorsum with Adaptic covering. Elevate lower extremities when sitted and in bed. Daily protein supplements and protein rich diet. Exercise as tolerated. Continue aquaphor to other skin area. Follow-up in 1 week. This note was generated with [employer] dictation software. It may contain incorrect words, spelling, and punctuation that were not noted in checking the note before signing.
[2017-09-12 11:04] VITALS: BP 151/99; PULSE 75; RESP 18; TEMP 35.7; BMI 31.3
--- NOTE | 2017-09-12 14:29 | PCM.WC.PN ---
(1) Open wound of left lower extremity Status: Acute Current Visit: Yes Qualifiers: Code(s): S81.802A - Unspecified open wound, left lower leg, initial encounter (2) Open wound of right lower extremity Status: Acute Current Visit: Yes Qualifiers: Code(s): S81.801A - Unspecified open wound, right lower leg, initial encounter (3) MRDD Status: Chronic Current Visit: No Type of Wound Date of Service: 09/12/17 Chief Complaint: Open wounds of bilateral lower extremities s/p fall. History of Wound: Mr. Osborne is a 42yo with PMH of cerebral palsy, seizure disorder and intellectual disability who presented here with his caregiver due to bilateral lower extremity wounds. On 19 July 2017 patient was said to have gone into seizure while in the bathroom and subseqeuntly sustained injuries/wounds to his bilateral lower extremity wounds. He has been to the ER, urgent care, his PCP and finally podiatry before being referred here. Per his caregiver he was initially started on clindamycin however this was recently changed to Bactrim. Wounds are said to be improving since being on antibiotics. He is otherwise said to be at his baseline with no documented chills, fever, nausea, vomiting or change in his bowel habit. He appears well also. Progress of Wound: Left lower extremity wound improving. However, over the past week, he scratched open the right lower extremity wound which was previously healed. They have been applying promogran daily with adaptic covering. - Physical Exam Vital Signs Temp Pulse Resp BP 96.3 F L 75 18 151/99 H 09/12/17 11:04 09/12/17 11:04 09/12/17 11:04 09/12/17 11:04 General: Alert, Cooperative, No apparent distress HEENT: Atraumatic, Normocephalic Neck: Supple Lungs: Normal air movement Cardiovascular: Regular rate Extremities: No cyanosis Skin: Ulcer/ Wound - Bilateral Feet. Wound Measurements and Assessment WC - Nurse 1 - General Ulcer Measurement Start: 08/22/17 10:38 Freq: Status: Active Protocol: Activity Type Activity Date Activity User E-Sign Co-Sign Detail Recorded Client Recorded Date Recorded By Document 09/12/17 11:04 TM [id number] 09/12/17 11:08 TM 09/12/17 11:04 Wound Center Nurse 1 [Ulcer Assessment] #4- RT FOOT DORSAL ASPECT -Combined with other wound No -Current Size (cm) - Length 3.6 -Current Size (cm) - Width 2.2 -Current Size (cm) - Depth 0.1 -Total Square Cm 7.92 -Photo Taken No -Epithelialization Small 1-33% -Tunneling No -Undermining/Tunneling No -Circular Undermining No -Classification - Thickness Full Thickness without Exposed Support Structure -Exudate Amt Small (1-33%) -Exudate Type Serous -Wound Margin Distinct, Outline Attached -Granulation Amt Large (67-100%) -Granulation Quality [place] -Slough/Fibrin Yes -Necrosis Amt Small (1-33%) -Necrotic Tissue Type Adherent Slough -Structure Exposed None/Limited to Skin Breakdown -Texture (Zelda-wound Skin Appearance) Friable Scarring -Moisture (Zelda-wound Skin Appearance No Abnormality ) -Color (Zelda-wound Skin Appearance) Erythema -Temperature (Zelda-wound Skin No Abnormality Appearance) (Pt Warm) -Tenderness on Palpation (Zelda-wound No Skin Appearance) -Ulcer Cleansing Rinsed/ Irrigated with Saline -Foul Odor after Cleansing No -Anesthetic Used 5% Lidocaine Gel #3- LT FOOT DORSAL ASPECT -Combined with other wound No -Current Size (cm) - Length 0.8 -Current Size (cm) - Width 1.5 -Current Size (cm) - Depth 0.1 -Total Square Cm 1.20 -Photo Taken No -Epithelialization Small 1-33% -Tunneling No -Undermining/Tunneling No -Circular Undermining No -Classification - Thickness Full Thickness without Exposed Support Structure -Exudate Amt Small (1-33%) -Exudate Type Serosanguineous -Wound Margin Distinct, Outline Attached -Granulation Amt Small (1-33%) -Granulation Quality [place] -Slough/Fibrin Yes -Necrosis Amt Medium (34-66%) -Necrotic Tissue Type Adherent Slough -Structure Exposed Fascia Fat Layer Exposed -Texture (Ezlda-wound Skin Appearance) Friable Scarring -Moisture (Zelda-wound Skin Appearance No Abnormality ) -Color (Zelda-wound Skin Appearance) Ecchymosis Erythema -Tenderness on Palpation (Zelda-wound No Skin Appearance) -Ulcer Cleansing Rinsed/ Irrigated with Saline -Foul Odor after Cleansing No -Anesthetic Used 5% Lidocaine Gel [Edema Assessment] -Lower Limb Edema Present No WC - Nurse 2 - General Ulcer CM Notes Start: 08/22/17 10:38 Freq: Status: Active Protocol: Activity Type Activity Date Activity User E-Sign Co-Sign Detail Recorded Client Recorded Date Recorded By Document 09/12/17 11:50 DV [id number] 09/12/17 11:55 DV 09/12/17 11:50 Wound Center Nurse 2 [Procedure/Treatment] #5- RT LATERAL ANKLE -Time 11:51 -Correct Patient Yes -Correct Side, Site, Position Yes -Correct Procedure Yes -Procedure Performed Yes -Type of Procedure Debridement -Clinical Debridement Subcutaneous -Post Debridement Size (cm) - Length 0.3 -Post Debridement Size (cm) - Width 0.2 -Post Debridement Size (cm) - Depth 0.1 -Total Square Cm 0.06 -Wound/Ulcer Outcome Not Healed -Ulcer Cleansing Rinsed/ Irrigated with Saline -Foul Odor after Cleansing No -Bioengineered Tissue No -Bleeding Controlled with Pressure -Treatment Response Procedure Tolerated Well #4- RT FOOT DORSAL ASPECT -Time 11:51 -Correct Patient Yes -Correct Side, Site, Position Yes -Correct Procedure Yes -Procedure Performed Yes -Type of Procedure Debridement -Clinical Debridement Subcutaneous -Post Debridement Size (cm) - Length 4.0 -Post Debridement Size (cm) - Width 2.2 -Post Debridement Size (cm) - Depth 0.1 -Total Square Cm 8.80 -Wound/Ulcer Outcome Not Healed -Ulcer Cleansing Rinsed/ Irrigated with Saline -Foul Odor after Cleansing No -Bioengineered Tissue No -Bleeding Controlled with Pressure -Treatment Response Procedure Tolerated Well #3- LT FOOT DORSAL ASPECT -Time 11:54 -Correct Patient Yes -Correct Side, Site, Position Yes -Correct Procedure Yes -Procedure Performed Yes -Type of Procedure Debridement -Clinical Debridement Subcutaneous -Post Debridement Size (cm) - Length 0.6 -Post Debridement Size (cm) - Width 1.6 -Post Debridement Size (cm) - Depth 0.1 -Total Square Cm 0.96 -Wound/Ulcer Outcome Not Healed -Ulcer Cleansing Rinsed/ Irrigated with Saline -Foul Odor after Cleansing No -Bioengineered Tissue No -Bleeding Controlled with Pressure -Treatment Response Procedure Tolerated Well [See Physician Procedure note for Specifics] Pain Scale: 0-10 Numeric [Pain] -Is Patient Pain Free? Yes Musculoskeletal: No Muscle Wasting Psych/Mental Status: Normal Affect Debridement Note Post-Debridement Measurements/Treatment WC - Nurse 2 - General Ulcer CM Notes Start: 08/22/17 10:38 Freq: Status: Active Protocol: Activity Type Activity Date Activity User E-Sign Co-Sign Detail Recorded Client Recorded Date Recorded By Document 08/22/17 11:26 DV [id number] 08/22/17 11:34 DV Document 08/29/17 12:49 JS [id number] 08/29/17 12:55 JS Document 09/05/17 11:08 DV [id number] 09/05/17 11:12 DV Document 09/12/17 11:50 DV [id number] 09/12/17 11:55 DV 08/22/17 08/29/17 09/05/17 11:26 12:49 11:08 Wound Center Nurse 2 #5- RT LATERAL ANKLE -Time -Correct Patient -Correct Side, Site, Position -Correct Procedure -Procedure Performed -Type of Procedure -Clinical Debridement -Post Debridement Size (cm) - Length -Post Debridement Size (cm) - Width -Post Debridement Size (cm) - Depth -Total Square Cm -Wound/Ulcer Outcome -Ulcer Cleansing -Foul Odor after Cleansing -Bioengineered Tissue -Bleeding Controlled with -Treatment Response #4- RT FOOT DORSAL ASPECT -Time 11:30 12:53 -Correct Patient Yes Yes -Correct Side, Site, Position Yes Yes -Correct Procedure Yes Yes -Procedure Performed Yes No -Type of Procedure Debridement -Clinical Debridement Subcutaneous -Post Debridement Size (cm) - Length 0.8 0 -Post Debridement Size (cm) - Width 0.2 0 -Post Debridement Size (cm) - Depth 0.1 0 -Total Square Cm 0.16 0 -Wound/Ulcer Outcome Healed- Epithelialized -Ulcer Cleansing Not Cleansed -Foul Odor after Cleansing No -Bioengineered Tissue No -Bleeding Controlled with NA -Treatment Response #3- LT FOOT DORSAL ASPECT -Time 11:27 12:54 11:08 -Correct Patient Yes Yes Yes -Correct Side, Site, Position Yes Yes Yes -Correct Procedure Yes Yes Yes -Procedure Performed Yes Yes Yes -Type of Procedure Debridement Debridement Debridement -Clinical Debridement Subcutaneous Subcutaneous Subcutaneous -Post Debridement Size (cm) - Length 1.0 1.1 0.3 -Post Debridement Size (cm) - Width 5.0 3.5 2.6 -Post Debridement Size (cm) - Depth 0.1 0.1 0.1 -Total Square Cm 5.00 3.85 0.78 -Wound/Ulcer Outcome Not Healed Not Healed Not Healed -Ulcer Cleansing Rinsed/ Rinsed/ Rinsed/ Irrigated with Irrigated with Irrigated with Saline Saline Saline -Foul Odor after Cleansing No No No -Bioengineered Tissue No No No -Cetacaine [place] No -Bleeding Controlled with Pressure Pressure Pressure -Treatment Response Procedure Procedure Procedure Tolerated Well Tolerated Well Tolerated Well #2- LT GR TOE -Time 11:27 12:54 -Correct Patient Yes Yes -Correct Side, Site, Position Yes Yes -Correct Procedure Yes Yes -Procedure Performed Yes No -Type of Procedure Debridement -Clinical Debridement Subcutaneous -Post Debridement Size (cm) - Length 0.1 0 -Post Debridement Size (cm) - Width 0.2 0 -Post Debridement Size (cm) - Depth 0.1 0 -Total Square Cm 0.02 0 -Wound/Ulcer Outcome Not Healed Healed- Epithelialized -Ulcer Cleansing Rinsed/ Not Cleansed Irrigated with Saline -Foul Odor after Cleansing No No -Bioengineered Tissue No No -Cetacaine [place] No -Bleeding Controlled with Pressure NA -Treatment Response Procedure Not Tolerated Well Pain Scale: 0-10 Numeric Is Patient Pain Free? Yes Yes Yes 09/12/17 11:50 Wound Center Nurse 2 #5- RT LATERAL ANKLE -Time 11:51 -Correct Patient Yes -Correct Side, Site, Position Yes -Correct Procedure Yes -Procedure Performed Yes -Type of Procedure Debridement -Clinical Debridement Subcutaneous -Post Debridement Size (cm) - Length 0.3 -Post Debridement Size (cm) - Width 0.2 -Post Debridement Size (cm) - Depth 0.1 -Total Square Cm 0.06 -Wound/Ulcer Outcome Not Healed -Ulcer Cleansing Rinsed/ Irrigated with Saline -Foul Odor after Cleansing No -Bioengineered Tissue No -Bleeding Controlled with Pressure -Treatment Response Procedure Tolerated Well #4- RT FOOT DORSAL ASPECT -Time 11:51 -Correct Patient Yes -Correct Side, Site, Position Yes -Correct Procedure Yes -Procedure Performed Yes -Type of Procedure Debridement -Clinical Debridement Subcutaneous -Post Debridement Size (cm) - Length 4.0 -Post Debridement Size (cm) - Width 2.2 -Post Debridement Size (cm) - Depth 0.1 -Total Square Cm 8.80 -Wound/Ulcer Outcome Not Healed -Ulcer Cleansing Rinsed/ Irrigated with Saline -Foul Odor after Cleansing No -Bioengineered Tissue No -Bleeding Controlled with Pressure -Treatment Response Procedure Tolerated Well #3- LT FOOT DORSAL ASPECT -Time 11:54 -Correct Patient Yes -Correct Side, Site, Position Yes -Correct Procedure Yes -Procedure Performed Yes -Type of Procedure Debridement -Clinical Debridement Subcutaneous -Post Debridement Size (cm) - Length 0.6 -Post Debridement Size (cm) - Width 1.6 -Post Debridement Size (cm) - Depth 0.1 -Total Square Cm 0.96 -Wound/Ulcer Outcome Not Healed -Ulcer Cleansing Rinsed/ Irrigated with Saline -Foul Odor after Cleansing No -Bioengineered Tissue No -Cetacaine [place] -Bleeding Controlled with Pressure -Treatment Response Procedure Tolerated Well #2- LT GR TOE -Time -Correct Patient -Correct Side, Site, Position -Correct Procedure -Procedure Performed -Type of Procedure -Clinical Debridement -Post Debridement Size (cm) - Length -Post Debridement Size (cm) - Width -Post Debridement Size (cm) - Depth -Total Square Cm -Wound/Ulcer Outcome -Ulcer Cleansing -Foul Odor after Cleansing -Bioengineered Tissue -Cetacaine [place] -Bleeding Controlled with -Treatment Response Pain Scale: 0-10 Numeric Is Patient Pain Free? Yes Wound debrided: Left Dorsum Foot Wound Grade/Stage: Stage II Type of Debridement: Excisional debridement Anesthesia Used: 5% Lidocaine Gel Depth: Down to and including healthy tissue, in the subcutaneous layer Percentage of wound debrided: 100 Instrument Used: 5mm curette Tissue Removed: Slough and Devitalized tissue Severity: Fat Layer Exposed Amount of bleeding with debridement: Mild Bleeding Controlled with: Pressure Patient tolerated procedure well - Additional Wound Wound debrided: Right Dorsum foot Wound Grade/Stage: Stage II Type of Debridement: Excisional debridement Anesthesia Used: 5% Lidocaine Gel Depth: Down to and including healthy tissue, in the subcutaneous layer Percentage of wound debrided: 100 Instrument Used: 5mm curette Tissue Removed: Slough and Devitalized tissue Severity: Limited To Skin Breakdown Amount of bleeding with debridement: Mild Bleeding Controlled with: Pressure Patient tolerated procedure: Patient tolerated procedure well - Additional Wound Wound debrided: Right Lateral Ankle Wound Grade/Stage: Stage I Type of Debridement: Excisional debridement Anesthesia Used: 5% Lidocaine Gel Depth: Down to and including healthy tissue Percentage of wound debrided: 100 Instrument Used: 5mm curette Tissue Removed: Devitalized tissue Severity: Limited To Skin Breakdown Amount of bleeding with debridement: Mild Bleeding Controlled with: Pressure Patient tolerated procedure: Patient tolerated procedure well Assessment/Plan Active Problems Open wound of right lower extremity (Acute) Open wound of left lower extremity (Acute) Assessment: Open wound left foot. Open wound right lower extremity/Foot - Reopened. Open wound Left great toe - Healed. Intellectual Disability. Seizure Disorder. Plan: Progressive improvement of the left dorsal foot wound. However, previously healed right foot and lower extremity wound were reopened from patient scratching the area. No obvious signs of infection appreciated at this time. Debridement done as documented above. Continue promogran to left and right lower extremity wounds with Adaptic covering. Elevate lower extremities when sitted and in bed. Daily protein supplements and protein rich diet. Exercise as tolerated. Follow-up in 1 week. This note was generated with [employer] dictation software. It may contain incorrect words, spelling, and punctuation that were not noted in checking the note before signing.
--- NOTE | 2017-09-12 14:38 | PN.PCM_ITS ---
(1) Open wound of left lower extremity Status: Acute Current Visit: Yes Qualifiers: Code(s): S81.802A - Unspecified open wound, left lower leg, initial encounter (2) Open wound of right lower extremity Status: Acute Current Visit: Yes Qualifiers: Code(s): S81.801A - Unspecified open wound, right lower leg, initial encounter (3) MRDD Status: Chronic Current Visit: No Type of Wound Date of Service: 09/12/17 Chief Complaint: Open wounds of bilateral lower extremities s/p fall. History of Wound: Mr. Osborne is a 42yo with PMH of cerebral palsy, seizure disorder and intellectual disability who presented here with his caregiver due to bilateral lower extremity wounds. On 19 July 2017 patient was said to have gone into seizure while in the bathroom and subseqeuntly sustained injuries /wounds to his bilateral lower extremity wounds. He has been to the ER, urgent care, his PCP and finally podiatry before being referred here. Per his caregiver he was initially started on clindamycin however this was recently changed to Bactrim. Wounds are said to be improving since being on antibiotics. He is otherwise said to be at his baseline with no documented chills, fever, nausea, vomiting or change in his bowel habit. He appears well also. Progress of Wound: Left lower extremity wound improving. However, over the past week, he scratched open the right lower extremity wound which was previously healed. They have been applying promogran daily with adaptic covering. - Physical Exam Vital Signs Temp Pulse Resp BP 96.3 F L 75 18 151/99 H 09/12/17 11:04 09/12/17 11:04 09/12/17 11:04 09/12/17 11:04 General: Alert, Cooperative, No apparent distress HEENT: Atraumatic, Normocephalic Neck: Supple Lungs: Normal air movement Cardiovascular: Regular rate Extremities: No cyanosis Skin: Ulcer/ Wound - Bilateral Feet. Wound Measurements and Assessment WC - Nurse 1 - General Ulcer Measurement Start: 08/22/17 10:38 Freq: Status: Active Protocol: Activity Type Activity Date Activity User E-Sign Co-Sign Detail Recorded Client Recorded Date Recorded By Document 09/12/17 11:04 TM [id number] 09/12/17 11:08 TM 09/12/17 11:04 Wound Center Nurse 1 [Ulcer Assessment] #4- RT FOOT DORSAL ASPECT -Combined with other wound No -Current Size (cm) - Length 3.6 -Current Size (cm) - Width 2.2 -Current Size (cm) - Depth 0.1 -Total Square Cm 7.92 -Photo Taken No -Epithelialization Small 1-33% -Tunneling No -Undermining/Tunneling No -Circular Undermining No -Classification - Thickness Full Thickness without Exposed Support Structure -Exudate Amt Small (1-33%) -Exudate Type Serous -Wound Margin Distinct, Outline Attached -Granulation Amt Large (67-100%) -Granulation Quality [place] -Slough/Fibrin Yes -Necrosis Amt Small (1-33%) -Necrotic Tissue Type Adherent Slough -Structure Exposed None/Limited to Skin Breakdown -Texture (Zelda-wound Skin Appearance) Friable Scarring -Moisture (Zelda-wound Skin Appearance No Abnormality ) -Color (Zelda-wound Skin Appearance) Erythema -Temperature (Zelda-wound Skin No Abnormality Appearance) (Pt Warm) -Tenderness on Palpation (Zelda-wound No Skin Appearance) -Ulcer Cleansing Rinsed/ Irrigated with Saline -Foul Odor after Cleansing No -Anesthetic Used 5% Lidocaine Gel #3- LT FOOT DORSAL ASPECT -Combined with other wound No -Current Size (cm) - Length 0.8 -Current Size (cm) - Width 1.5 -Current Size (cm) - Depth 0.1 -Total Square Cm 1.20 -Photo Taken No -Epithelialization Small 1-33% -Tunneling No -Undermining/Tunneling No -Circular Undermining No -Classification - Thickness Full Thickness without Exposed Support Structure -Exudate Amt Small (1-33%) -Exudate Type Serosanguineous -Wound Margin Distinct, Outline Attached -Granulation Amt Small (1-33%) -Granulation Quality [place] -Slough/Fibrin Yes -Necrosis Amt Medium (34-66%) -Necrotic Tissue Type Adherent Slough -Structure Exposed Fascia Fat Layer Exposed -Texture (Zelda-wound Skin Appearance) Friable Scarring -Moisture (Zelda-wound Skin Appearance No Abnormality ) -Color (Zelda-wound Skin Appearance) Ecchymosis Erythema -Tenderness on Palpation (Zelda-wound No Skin Appearance) -Ulcer Cleansing Rinsed/ Irrigated with Saline -Foul Odor after Cleansing No -Anesthetic Used 5% Lidocaine Gel [Edema Assessment] -Lower Limb Edema Present No WC - Nurse 2 - General Ulcer CM Notes Start: 08/22/17 10:38 Freq: Status: Active Protocol: Activity Type Activity Date Activity User E-Sign Co-Sign Detail Recorded Client Recorded Date Recorded By Document 09/12/17 11:50 DV [id number] 09/12/17 11:55 DV 09/12/17 11:50 Wound Center Nurse 2 [Procedure/Treatment] #5- RT LATERAL ANKLE -Time 11:51 -Correct Patient Yes -Correct Side, Site, Position Yes -Correct Procedure Yes -Procedure Performed Yes -Type of Procedure Debridement -Clinical Debridement Subcutaneous -Post Debridement Size (cm) - Length 0.3 -Post Debridement Size (cm) - Width 0.2 -Post Debridement Size (cm) - Depth 0.1 -Total Square Cm 0.06 -Wound/Ulcer Outcome Not Healed -Ulcer Cleansing Rinsed/ Irrigated with Saline -Foul Odor after Cleansing No -Bioengineered Tissue No -Bleeding Controlled with Pressure -Treatment Response Procedure Tolerated Well #4- RT FOOT DORSAL ASPECT -Time 11:51 -Correct Patient Yes -Correct Side, Site, Position Yes -Correct Procedure Yes -Procedure Performed Yes -Type of Procedure Debridement -Clinical Debridement Subcutaneous -Post Debridement Size (cm) - Length 4.0 -Post Debridement Size (cm) - Width 2.2 -Post Debridement Size (cm) - Depth 0.1 -Total Square Cm 8.80 -Wound/Ulcer Outcome Not Healed -Ulcer Cleansing Rinsed/ Irrigated with Saline -Foul Odor after Cleansing No -Bioengineered Tissue No -Bleeding Controlled with Pressure -Treatment Response Procedure Tolerated Well #3- LT FOOT DORSAL ASPECT -Time 11:54 -Correct Patient Yes -Correct Side, Site, Position Yes -Correct Procedure Yes -Procedure Performed Yes -Type of Procedure Debridement -Clinical Debridement Subcutaneous -Post Debridement Size (cm) - Length 0.6 -Post Debridement Size (cm) - Width 1.6 -Post Debridement Size (cm) - Depth 0.1 -Total Square Cm 0.96 -Wound/Ulcer Outcome Not Healed -Ulcer Cleansing Rinsed/ Irrigated with Saline -Foul Odor after Cleansing No -Bioengineered Tissue No -Bleeding Controlled with Pressure -Treatment Response Procedure Tolerated Well [See Physician Procedure note for Specifics] Pain Scale: 0-10 Numeric [Pain] -Is Patient Pain Free? Yes Musculoskeletal: No Muscle Wasting Psych/Mental Status: Normal Affect Debridement Note Post-Debridement Measurements/Treatment WC - Nurse 2 - General Ulcer CM Notes Start: 08/22/17 10:38 Freq: Status: Active Protocol: Activity Type Activity Date Activity User E-Sign Co-Sign Detail Recorded Client Recorded Date Recorded By Document 08/22/17 11:26 DV [id number] 08/22/17 11:34 DV Document 08/29/17 12:49 JS [id number] 08/29/17 12:55 JS Document 09/05/17 11:08 DV [id number] 09/05/17 11:12 DV Document 09/12/17 11:50 DV [id number] 09/12/17 11:55 DV 08/22/17 08/29/17 09/05/17 11:26 12:49 11:08 Wound Center Nurse 2 #5- RT LATERAL ANKLE -Time -Correct Patient -Correct Side, Site, Position -Correct Procedure -Procedure Performed -Type of Procedure -Clinical Debridement -Post Debridement Size (cm) - Length -Post Debridement Size (cm) - Width -Post Debridement Size (cm) - Depth -Total Square Cm -Wound/Ulcer Outcome -Ulcer Cleansing -Foul Odor after Cleansing -Bioengineered Tissue -Bleeding Controlled with -Treatment Response #4- RT FOOT DORSAL ASPECT -Time 11:30 12:53 -Correct Patient Yes Yes -Correct Side, Site, Position Yes Yes -Correct Procedure Yes Yes -Procedure Performed Yes No -Type of Procedure Debridement -Clinical Debridement Subcutaneous -Post Debridement Size (cm) - Length 0.8 0 -Post Debridement Size (cm) - Width 0.2 0 -Post Debridement Size (cm) - Depth 0.1 0 -Total Square Cm 0.16 0 -Wound/Ulcer Outcome Healed- Epithelialized -Ulcer Cleansing Not Cleansed -Foul Odor after Cleansing No -Bioengineered Tissue No -Bleeding Controlled with NA -Treatment Response #3- LT FOOT DORSAL ASPECT -Time 11:27 12:54 11:08 -Correct Patient Yes Yes Yes -Correct Side, Site, Position Yes Yes Yes -Correct Procedure Yes Yes Yes -Procedure Performed Yes Yes Yes -Type of Procedure Debridement Debridement Debridement -Clinical Debridement Subcutaneous Subcutaneous Subcutaneous -Post Debridement Size (cm) - Length 1.0 1.1 0.3 -Post Debridement Size (cm) - Width 5.0 3.5 2.6 -Post Debridement Size (cm) - Depth 0.1 0.1 0.1 -Total Square Cm 5.00 3.85 0.78 -Wound/Ulcer Outcome Not Healed Not Healed Not Healed -Ulcer Cleansing Rinsed/ Rinsed/ Rinsed/ Irrigated with Irrigated with Irrigated with Saline Saline Saline -Foul Odor after Cleansing No No No -Bioengineered Tissue No No No -Cetacaine [place] No -Bleeding Controlled with Pressure Pressure Pressure -Treatment Response Procedure Procedure Procedure Tolerated Well Tolerated Well Tolerated Well #2- LT GR TOE -Time 11:27 12:54 -Correct Patient Yes Yes -Correct Side, Site, Position Yes Yes -Correct Procedure Yes Yes -Procedure Performed Yes No -Type of Procedure Debridement -Clinical Debridement Subcutaneous -Post Debridement Size (cm) - Length 0.1 0 -Post Debridement Size (cm) - Width 0.2 0 -Post Debridement Size (cm) - Depth 0.1 0 -Total Square Cm 0.02 0 -Wound/Ulcer Outcome Not Healed Healed- Epithelialized -Ulcer Cleansing Rinsed/ Not Cleansed Irrigated with Saline -Foul Odor after Cleansing No No -Bioengineered Tissue No No -Cetacaine [place] No -Bleeding Controlled with Pressure NA -Treatment Response Procedure Not Tolerated Well Pain Scale: 0-10 Numeric Is Patient Pain Free? Yes Yes Yes 09/12/17 11:50 Wound Center Nurse 2 #5- RT LATERAL ANKLE -Time 11:51 -Correct Patient Yes -Correct Side, Site, Position Yes -Correct Procedure Yes -Procedure Performed Yes -Type of Procedure Debridement -Clinical Debridement Subcutaneous -Post Debridement Size (cm) - Length 0.3 -Post Debridement Size (cm) - Width 0.2 -Post Debridement Size (cm) - Depth 0.1 -Total Square Cm 0.06 -Wound/Ulcer Outcome Not Healed -Ulcer Cleansing Rinsed/ Irrigated with Saline -Foul Odor after Cleansing No -Bioengineered Tissue No -Bleeding Controlled with Pressure -Treatment Response Procedure Tolerated Well #4- RT FOOT DORSAL ASPECT -Time 11:51 -Correct Patient Yes -Correct Side, Site, Position Yes -Correct Procedure Yes -Procedure Performed Yes -Type of Procedure Debridement -Clinical Debridement Subcutaneous -Post Debridement Size (cm) - Length 4.0 -Post Debridement Size (cm) - Width 2.2 -Post Debridement Size (cm) - Depth 0.1 -Total Square Cm 8.80 -Wound/Ulcer Outcome Not Healed -Ulcer Cleansing Rinsed/ Irrigated with Saline -Foul Odor after Cleansing No -Bioengineered Tissue No -Bleeding Controlled with Pressure -Treatment Response Procedure Tolerated Well #3- LT FOOT DORSAL ASPECT -Time 11:54 -Correct Patient Yes -Correct Side, Site, Position Yes -Correct Procedure Yes -Procedure Performed Yes -Type of Procedure Debridement -Clinical Debridement Subcutaneous -Post Debridement Size (cm) - Length 0.6 -Post Debridement Size (cm) - Width 1.6 -Post Debridement Size (cm) - Depth 0.1 -Total Square Cm 0.96 -Wound/Ulcer Outcome Not Healed -Ulcer Cleansing Rinsed/ Irrigated with Saline -Foul Odor after Cleansing No -Bioengineered Tissue No -Cetacaine [place] -Bleeding Controlled with Pressure -Treatment Response Procedure Tolerated Well #2- LT GR TOE -Time -Correct Patient -Correct Side, Site, Position -Correct Procedure -Procedure Performed -Type of Procedure -Clinical Debridement -Post Debridement Size (cm) - Length -Post Debridement Size (cm) - Width -Post Debridement Size (cm) - Depth -Total Square Cm -Wound/Ulcer Outcome -Ulcer Cleansing -Foul Odor after Cleansing -Bioengineered Tissue -Cetacaine [place] -Bleeding Controlled with -Treatment Response Pain Scale: 0-10 Numeric Is Patient Pain Free? Yes Wound debrided: Left Dorsum Foot Wound Grade/Stage: Stage II Type of Debridement: Excisional debridement Anesthesia Used: 5% Lidocaine Gel Depth: Down to and including healthy tissue, in the subcutaneous layer Percentage of wound debrided: 100 Instrument Used: 5mm curette Tissue Removed: Slough and Devitalized tissue Severity: Fat Layer Exposed Amount of bleeding with debridement: Mild Bleeding Controlled with: Pressure Patient tolerated procedure well - Additional Wound Wound debrided: Right Dorsum foot Wound Grade/Stage: Stage II Type of Debridement: Excisional debridement Anesthesia Used: 5% Lidocaine Gel Depth: Down to and including healthy tissue, in the subcutaneous layer Percentage of wound debrided: 100 Instrument Used: 5mm curette Tissue Removed: Slough and Devitalized tissue Severity: Limited To Skin Breakdown Amount of bleeding with debridement: Mild Bleeding Controlled with: Pressure Patient tolerated procedure: Patient tolerated procedure well - Additional Wound Wound debrided: Right Lateral Ankle Wound Grade/Stage: Stage I Type of Debridement: Excisional debridement Anesthesia Used: 5% Lidocaine Gel Depth: Down to and including healthy tissue Percentage of wound debrided: 100 Instrument Used: 5mm curette Tissue Removed: Devitalized tissue Severity: Limited To Skin Breakdown Amount of bleeding with debridement: Mild Bleeding Controlled with: Pressure Patient tolerated procedure: Patient tolerated procedure well Assessment/Plan Active Problems Open wound of right lower extremity (Acute) Open wound of left lower extremity (Acute) Assessment: Open wound left foot. Open wound right lower extremity/Foot - Reopened. Open wound Left great toe - Healed. Intellectual Disability. Seizure Disorder. Plan: Progressive improvement of the left dorsal foot wound. However, previously healed right foot and lower extremity wound were reopened from patient scratching the area. No obvious signs of infection appreciated at this time. Debridement done as documented above. Continue promogran to left and right lower extremity wounds with Adaptic covering. Elevate lower extremities when sitted and in bed. Daily protein supplements and protein rich diet. Exercise as tolerated. Follow-up in 1 week. This note was generated with [employer] dictation software. It may contain incorrect words, spelling, and punctuation that were not noted in checking the note before signing.
== END 2017-09-18 23:59 ==
LOC: WC 10:30
PROVIDERS: Family Provider Internal Medicine; PCP Internal Medicine; Visit Provider Internal Medicine
DX: S81.832A Puncture wound without foreign body, left lower leg, initial encounter (principal); G40.909 Epilepsy, unspecified, not intractable, without status epilepticus; G80.9 Cerebral palsy, unspecified; F79 Unspecified intellectual disabilities; S81.831A Puncture wound without foreign body, right lower leg, initial encounter; X58.XXXA Exposure to other specified factors, initial encounter; Y93.89 Activity, other specified; Y92.89 Other specified places as the place of occurrence of the external cause
CPT/HCPCS: 11042; 97597

== ENCOUNTER 2017-09-13 11:34 | Emergency (ER) | payer MEDICARE, MEDICAID, SELFPAY ==
[2017-09-13 11:36] VITALS: BP 141/91; PULSE 96; RESP 21; TEMP 37.6; O2SAT 95; BMI 27.6
--- NOTE | 2017-09-13 12:14 | RAD_ITS ---
STUDY: X-RAY CHEST REASON FOR EXAM: Male, 42 years old. Cough. TECHNIQUE: AP and lateral views of the chest. COMPARISON: Comparison is made with prior study dated February 05, 2015. FINDINGS: A battery pack is seen overlying the anterior left thorax. There appears to be an electrode heading towards the left cervical region. There is evidence of a infiltration in the left lower lobe. Follow-up is recommended. There is no demonstrated pleural abnormality. Normal size heart. Normal mediastinum and roni. Normal visualized pulmonary arteries. Normal visualized aortic arch and descending thoracic aorta. Normal visualized thoracic spine. Normal visualized ribs, clavicles, and shoulders. There is no demonstrated abnormality of the visualized soft tissue structures of the upper abdomen. RAD/Chest PA and Lateral IMPRESSION: Left lower lobe infiltrate. Follow-up is recommended. Electronically Signed: Jaden Cottrell MD at 12:45 EST Tel [phone], Service support ,
[2017-09-13 13:01] VITALS: PULSE 84; RESP 18; TEMP 36.9; O2SAT 91
--- NOTE | 2017-09-13 13:04 | ED.VISSUMM ---
- ER Visit Summary Date of Service: 09/13/17 Chief Complaint: Cough History of Present Illness: The patient is a 42 M seizure disorder he lives in a [place] [facility]. For the last week he has had gradual onset of a cough and intermittent low-grade fever of 99-100. No significant vomiting or diarrhea. No abdominal pain. He is able to urinate move his bowels. There are caregivers from the [facility] here with him. They are giving most of the history. Physical Examination: Well-appearing middle-age male. Vital signs are stable. His temperature is 9 9.7. He does not look septic or toxic. He does not look dehydrated. His pulse ox 95% on room air no signs of hypoxia. H EENT exam posterior pharynx moist and pink. No erythema or exudate. TMs cannot be visualized bilaterally secondary to cerumen impactions. Neck nontender no meningismus. No lymphadenopathy. Lungs coarse breath sounds bilaterally. Diminished in the left base. No rales no rhonchi no wheezing. Heart regular rhythm no murmur rate in 90s. Abdomen soft nontender. Extremities moving all 4. Calves nontender, no edema no cords. Neurologically is awake he is following commands he is moving his extremities. Test Results: Chest x-ray is obtained shows a left lower lobe infiltrate consistent with a left lower lobe pneumonia. Read both by myself and the radiologist. Emergency Department Course and Treatment: Clinically looks well. He is not hypoxic. He does not look septic. I feel he can be treated as an outpatient with Levaquin. He will be given a first dose here in emergency department. Treatment Plan:: 750 mg daily. Disposition: Discharge Impression: Acute left lower lobe pneumonia community-acquired History of seizure disorder This note was generated with [employer] software. It may contain incorrect words, spelling, and punctuation that were not noted in review of the chart prior to signing ED Disposition - Plan for ED Patient: Chief Complaint: Cough Referrals: Camille Graves MD [Primary Care Provider] -
--- NOTE | 2017-09-13 13:07 | ED.DCSUM_ITS ---
- ER Visit Summary Date of Service: 09/13/17 Chief Complaint: Cough History of Present Illness: The patient is a 42 M seizure disorder he lives in a [place] [facility]. For the last week he has had gradual onset of a cough and intermittent low-grade fever of 99-100. No significant vomiting or diarrhea. No abdominal pain. He is able to urinate move his bowels. There are caregivers from the alf here with him. They are giving most of the history. Physical Examination: Well-appearing middle-age male. Vital signs are stable. His temperature is 9 9.7. He does not look septic or toxic. He does not look dehydrated. His pulse ox 95% on room air no signs of hypoxia. H EENT exam posterior pharynx moist and pink. No erythema or exudate. TMs cannot be visualized bilaterally secondary to cerumen impactions. Neck nontender no meningismus. No lymphadenopathy. Lungs coarse breath sounds bilaterally. Diminished in the left base. No rales no rhonchi no wheezing. Heart regular rhythm no murmur rate in 90s. Abdomen soft nontender. Extremities moving all 4. Calves nontender, no edema no cords. Neurologically is awake he is following commands he is moving his extremities. Test Results: Chest x-ray is obtained shows a left lower lobe infiltrate consistent with a left lower lobe pneumonia. Read both by myself and the radiologist. Emergency Department Course and Treatment: Clinically looks well. He is not hypoxic. He does not look septic. I feel he can be treated as an outpatient with Levaquin. He will be given a first dose here in emergency department. Treatment Plan:: 750 mg daily. Disposition: Discharge Impression: Acute left lower lobe pneumonia community-acquired History of seizure disorder This note was generated with [employer] software. It may contain incorrect words, spelling, and punctuation that were not noted in review of the chart prior to signing ED Disposition - Plan for ED Patient: Chief Complaint: Cough Referrals: Camille Graves MD [Primary Care Provider] -
--- NOTE | 2017-09-13 13:07 | ED.DEP ---
ED Disposition - Plan for ED Patient: Disposition: Home or Assisted Living Chief Complaint: Cough Instructions: ED Pneumonia Adult Prescriptions: Levofloxacin [Levaquin] 750 mg PO DAILY #7 tab Referrals: Camille Graves MD [Primary Care Provider] - 5-7 Days Additional Instructions: The left lower lobe pneumonia. He will be started on antibiotic called Levaquin which she will take 1 pill once a day till gone. He should follow-up with his primary care physician Dr. Graves next week to ensure that he is getting better. Plenty fluids and rest. Tylenol for fever. Return to ER if he is getting worse.
[2017-09-13] MEDS: levoFLOXacin 750 MG Tablet PO (13:22)
[2017-09-13 13:29] VITALS: PULSE 87; RESP 16; O2SAT 98
== END 2017-09-13 13:40 | disposition home or self-care (01) ==
PROVIDERS: Emergency Provider Emergency Medicine; Family Provider Internal Medicine; PCP Internal Medicine
DX: J18.9 Pneumonia, unspecified organism (principal); G40.909 Epilepsy, unspecified, not intractable, without status epilepticus; Z79.899 Other long term (current) drug therapy
CPT/HCPCS: 71046; 99282

== ENCOUNTER 2017-10-10 12:15 | Outpatient (RCR) | payer MEDICARE, MEDICAID, SELFPAY ==
[2017-09-19 00:51] VITALS: BP 100/66; PULSE 75; RESP 18; TEMP 35.7; BMI 31.3
[2017-09-19 10:28] VITALS: BP 112/68; PULSE 84; RESP 18; TEMP 36.8; BMI 31.3
--- NOTE | 2017-09-19 13:57 | PCM.WC.PN ---
(1) Open wound of left lower extremity Status: Acute Current Visit: No Qualifiers: Code(s): S81.802A - Unspecified open wound, left lower leg, initial encounter (2) Open wound of right lower extremity Status: Acute Current Visit: No Qualifiers: Code(s): S81.801A - Unspecified open wound, right lower leg, initial encounter (3) MRDD Status: Chronic Current Visit: No Type of Wound Date of Service: 09/19/17 Chief Complaint: Open wounds of bilateral lower extremities s/p fall. History of Wound: Mr. Osborne is a 42yo with PMH of cerebral palsy, seizure disorder and intellectual disability who presented here with his caregiver due to bilateral lower extremity wounds. On 19 July 2017 patient was said to have gone into seizure while in the bathroom and subseqeuntly sustained injuries/wounds to his bilateral lower extremity wounds. He has been to the ER, urgent care, his PCP and finally podiatry before being referred here. Per his caregiver he was initially started on clindamycin however this was recently changed to Bactrim. Wounds are said to be improving since being on antibiotics. He is otherwise said to be at his baseline with no documented chills, fever, nausea, vomiting or change in his bowel habit. He appears well also. Progress of Wound: Improving. - Physical Exam Vital Signs Temp Pulse Resp BP 98.2 F 84 18 112/68 09/19/17 10:28 09/19/17 10:28 09/19/17 10:28 09/19/17 10:28 General: Alert, Cooperative, No apparent distress HEENT: Atraumatic, Normocephalic Oral: Moist Mucosa Neck: Supple Lungs: Normal air movement Cardiovascular: Regular rate Extremities: No cyanosis, No edema Skin: Ulcer/ Wound Wound Measurements and Assessment WC - Nurse 1 - General Ulcer Measurement Start: 09/19/17 10:26 Freq: Status: Active Protocol: Activity Type Activity Date Activity User E-Sign Co-Sign Detail Recorded Client Recorded Date Recorded By Document 09/19/17 10:28 DV [id number] 09/19/17 10:34 DV 09/19/17 10:28 Wound Center Nurse 1 [Ulcer Assessment] #5- RT LATERAL ANKLE -Combined with other wound No -Current Size (cm) - Length 0 -Current Size (cm) - Width 0 -Current Size (cm) - Depth 0 -Total Square Cm 0 -Photo Taken Yes -Exudate Amt None Present (0 %) -Wound Margin Flat & Intact -Granulation Quality N/A -Slough/Fibrin No -Necrosis Amt None Present (0 %) -Structure Exposed N/A -Texture (Zelda-wound Skin Appearance) No Abnormality Assessed Scarring -Moisture (Zelda-wound Skin Appearance No Abnormality ) Assessed -Color (Zelda-wound Skin Appearance) Assessed Hemosiderin Staining -Temperature (Zelda-wound Skin No Abnormality Appearance) (Pt Warm) -Tenderness on Palpation (Zelda-wound No Skin Appearance) -Ulcer Cleansing Not Cleansed -Foul Odor after Cleansing No #4- RT FOOT DORSAL ASPECT -Combined with other wound No -Current Size (cm) - Length 0.1 -Current Size (cm) - Width 0.1 -Current Size (cm) - Depth 0.1 -Total Square Cm 0.01 -Photo Taken Yes -Epithelialization Small 1-33% -Tunneling No -Undermining/Tunneling No -Classification - Thickness Full Thickness without Exposed Support Structure -Exudate Amt None Present (0 %) -Wound Margin Flat & Intact -Granulation Quality N/A -Slough/Fibrin No -Necrosis Amt None Present (0 %) -Structure Exposed N/A -Texture (Zelda-wound Skin Appearance) Assessed Scarring -Moisture (Zelda-wound Skin Appearance Assessed ) Dry/Scaly -Color (Zelda-wound Skin Appearance) Assessed Hemosiderin Staining -Temperature (Zelda-wound Skin No Abnormality Appearance) (Pt Warm) -Ulcer Cleansing Rinsed/ Irrigated with Saline -Foul Odor after Cleansing No -Anesthetic Used 5% Lidocaine Gel #3- LT FOOT DORSAL ASPECT -Combined with other wound No -Current Size (cm) - Length 0.3 -Current Size (cm) - Width 0.3 -Current Size (cm) - Depth 0.1 -Total Square Cm 0.09 -Photo Taken No -Epithelialization Small 1-33% -Tunneling No -Undermining/Tunneling No -Classification - Thickness Full Thickness without Exposed Support Structure -Exudate Amt None Present (0 %) -Wound Margin Flat & Intact -Granulation Quality N/A -Slough/Fibrin No -Necrosis Amt None Present (0 %) -Structure Exposed N/A -Texture (Zelda-wound Skin Appearance) Assessed Scarring -Moisture (Zelda-wound Skin Appearance No Abnormality ) Assessed -Color (Zelda-wound Skin Appearance) Assessed Hemosiderin Staining -Temperature (Zelda-wound Skin No Abnormality Appearance) (Pt Warm) -Tenderness on Palpation (Zelda-wound No Skin Appearance) -Ulcer Cleansing Rinsed/ Irrigated with Saline -Foul Odor after Cleansing No -Anesthetic Used 5% Lidocaine Gel [Edema Assessment] -Lower Limb Edema Present No WC - Nurse 2 - General Ulcer CM Notes Start: 09/19/17 10:26 Freq: Status: Active Protocol: Activity Type Activity Date Activity User E-Sign Co-Sign Detail Recorded Client Recorded Date Recorded By Document 09/19/17 11:01 DV [id number] 09/19/17 11:06 DV 09/19/17 11:01 Wound Center Nurse 2 [Procedure/Treatment] #5- RT LATERAL ANKLE -Time 11:02 -Correct Patient Yes -Correct Side, Site, Position Yes -Procedure Performed No -Post Debridement Size (cm) - Length 0 -Post Debridement Size (cm) - Width 0 -Post Debridement Size (cm) - Depth 0 -Total Square Cm 0 -Wound/Ulcer Outcome Healed- Epithelialized #4- RT FOOT DORSAL ASPECT -Time 11:02 -Correct Patient Yes -Correct Side, Site, Position Yes -Correct Procedure Yes -Procedure Performed Yes -Type of Procedure Debridement -Clinical Debridement Selective -Post Debridement Size (cm) - Length 0.1 -Post Debridement Size (cm) - Width 0.1 -Post Debridement Size (cm) - Depth 0.1 -Total Square Cm 0.01 -Wound/Ulcer Outcome Not Healed -Ulcer Cleansing Rinsed/ Irrigated with Saline -Foul Odor after Cleansing No -Bioengineered Tissue No -Bleeding Controlled with Pressure -Treatment Response Procedure Tolerated Well #3- LT FOOT DORSAL ASPECT -Time 11:04 -Correct Patient Yes -Correct Side, Site, Position Yes -Procedure Performed No -Post Debridement Size (cm) - Length 0 -Post Debridement Size (cm) - Width 0 -Post Debridement Size (cm) - Depth 0 -Total Square Cm 0 -Wound/Ulcer Outcome Healed- Epithelialized [See Physician Procedure note for Specifics] Pain Scale: 0-10 Numeric [Pain] -Is Patient Pain Free? Yes Musculoskeletal: No Muscle Wasting Neurological: Cranial nerves II-XII grossly intact Psych/Mental Status: Normal Affect Debridement Note Post-Debridement Measurements/Treatment WC - Nurse 2 - General Ulcer CM Notes Start: 09/19/17 10:26 Freq: Status: Active Protocol: Activity Type Activity Date Activity User E-Sign Co-Sign Detail Recorded Client Recorded Date Recorded By Document 09/19/17 11:01 DV [id number] 09/19/17 11:06 DV 09/19/17 11:01 Wound Center Nurse 2 #5- RT LATERAL ANKLE -Time 11:02 -Correct Patient Yes -Correct Side, Site, Position Yes -Procedure Performed No -Post Debridement Size (cm) - Length 0 -Post Debridement Size (cm) - Width 0 -Post Debridement Size (cm) - Depth 0 -Total Square Cm 0 -Wound/Ulcer Outcome Healed- Epithelialized #4- RT FOOT DORSAL ASPECT -Time 11:02 -Correct Patient Yes -Correct Side, Site, Position Yes -Correct Procedure Yes -Procedure Performed Yes -Type of Procedure Debridement -Clinical Debridement Selective -Post Debridement Size (cm) - Length 0.1 -Post Debridement Size (cm) - Width 0.1 -Post Debridement Size (cm) - Depth 0.1 -Total Square Cm 0.01 -Wound/Ulcer Outcome Not Healed -Ulcer Cleansing Rinsed/ Irrigated with Saline -Foul Odor after Cleansing No -Bioengineered Tissue No -Bleeding Controlled with Pressure -Treatment Response Procedure Tolerated Well #3- LT FOOT DORSAL ASPECT -Time 11:04 -Correct Patient Yes -Correct Side, Site, Position Yes -Procedure Performed No -Post Debridement Size (cm) - Length 0 -Post Debridement Size (cm) - Width 0 -Post Debridement Size (cm) - Depth 0 -Total Square Cm 0 -Wound/Ulcer Outcome Healed- Epithelialized Pain Scale: 0-10 Numeric Is Patient Pain Free? Yes Wound debrided: Right Dorsum Foot Wound Grade/Stage: Stage II Type of Debridement: Selective debridement Anesthesia Used: 5% Lidocaine Gel Depth: Down to and including healthy tissue Percentage of wound debrided: 90 Instrument Used: 3mm curette Tissue Removed: Devitalized tissue Severity: Limited To Skin Breakdown Amount of bleeding with debridement: Mild Bleeding Controlled with: Pressure Patient tolerated procedure well Assessment/Plan Assessment: Open wound left foot. - Healed. Open wound right lower extremity/Foot - Reopened. Open wound Left great toe - Healed. Intellectual Disability. Seizure Disorder. Plan: Wounds have done very well so far and are all for the most part healed but for a minimal area of the right dorsal foot left. Continue daily promogran with adaptic covering over right dorsum foot. Adaptic over left Dorsum until tougher skin. Keep both lower exremities covered to prevent scratching until skin texture returns to normal. Elevate lower extremities when sitted and in bed. Daily protein supplements and protein rich diet. Exercise as tolerated. Follow-up in 1 week. This note was generated with [employer] dictation software. It may contain incorrect words, spelling, and punctuation that were not noted in checking the note before signing.
--- NOTE | 2017-09-19 14:03 | PN.PCM_ITS ---
(1) Open wound of left lower extremity Status: Acute Current Visit: No Qualifiers: Code(s): S81.802A - Unspecified open wound, left lower leg, initial encounter (2) Open wound of right lower extremity Status: Acute Current Visit: No Qualifiers: Code(s): S81.801A - Unspecified open wound, right lower leg, initial encounter (3) MRDD Status: Chronic Current Visit: No Type of Wound Date of Service: 09/19/17 Chief Complaint: Open wounds of bilateral lower extremities s/p fall. History of Wound: Mr. Osborne is a 42yo with PMH of cerebral palsy, seizure disorder and intellectual disability who presented here with his caregiver due to bilateral lower extremity wounds. On 19 July 2017 patient was said to have gone into seizure while in the bathroom and subseqeuntly sustained injuries /wounds to his bilateral lower extremity wounds. He has been to the ER, urgent care, his PCP and finally podiatry before being referred here. Per his caregiver he was initially started on clindamycin however this was recently changed to Bactrim. Wounds are said to be improving since being on antibiotics. He is otherwise said to be at his baseline with no documented chills, fever, nausea, vomiting or change in his bowel habit. He appears well also. Progress of Wound: Improving. - Physical Exam Vital Signs Temp Pulse Resp BP 98.2 F 84 18 112/68 09/19/17 10:28 09/19/17 10:28 09/19/17 10:28 09/19/17 10:28 General: Alert, Cooperative, No apparent distress HEENT: Atraumatic, Normocephalic Oral: Moist Mucosa Neck: Supple Lungs: Normal air movement Cardiovascular: Regular rate Extremities: No cyanosis, No edema Skin: Ulcer/ Wound Wound Measurements and Assessment WC - Nurse 1 - General Ulcer Measurement Start: 09/19/17 10:26 Freq: Status: Active Protocol: Activity Type Activity Date Activity User E-Sign Co-Sign Detail Recorded Client Recorded Date Recorded By Document 09/19/17 10:28 DV [id number] 09/19/17 10:34 DV 09/19/17 10:28 Wound Center Nurse 1 [Ulcer Assessment] #5- RT LATERAL ANKLE -Combined with other wound No -Current Size (cm) - Length 0 -Current Size (cm) - Width 0 -Current Size (cm) - Depth 0 -Total Square Cm 0 -Photo Taken Yes -Exudate Amt None Present (0 %) -Wound Margin Flat & Intact -Granulation Quality N/A -Slough/Fibrin No -Necrosis Amt None Present (0 %) -Structure Exposed N/A -Texture (Zelda-wound Skin Appearance) No Abnormality Assessed Scarring -Moisture (Zelda-wound Skin Appearance No Abnormality ) Assessed -Color (Zelda-wound Skin Appearance) Assessed Hemosiderin Staining -Temperature (Zelda-wound Skin No Abnormality Appearance) (Pt Warm) -Tenderness on Palpation (Zelda-wound No Skin Appearance) -Ulcer Cleansing Not Cleansed -Foul Odor after Cleansing No #4- RT FOOT DORSAL ASPECT -Combined with other wound No -Current Size (cm) - Length 0.1 -Current Size (cm) - Width 0.1 -Current Size (cm) - Depth 0.1 -Total Square Cm 0.01 -Photo Taken Yes -Epithelialization Small 1-33% -Tunneling No -Undermining/Tunneling No -Classification - Thickness Full Thickness without Exposed Support Structure -Exudate Amt None Present (0 %) -Wound Margin Flat & Intact -Granulation Quality N/A -Slough/Fibrin No -Necrosis Amt None Present (0 %) -Structure Exposed N/A -Texture (Zelda-wound Skin Appearance) Assessed Scarring -Moisture (Zelda-wound Skin Appearance Assessed ) Dry/Scaly -Color (Zelda-wound Skin Appearance) Assessed Hemosiderin Staining -Temperature (Zelda-wound Skin No Abnormality Appearance) (Pt Warm) -Ulcer Cleansing Rinsed/ Irrigated with Saline -Foul Odor after Cleansing No -Anesthetic Used 5% Lidocaine Gel #3- LT FOOT DORSAL ASPECT -Combined with other wound No -Current Size (cm) - Length 0.3 -Current Size (cm) - Width 0.3 -Current Size (cm) - Depth 0.1 -Total Square Cm 0.09 -Photo Taken No -Epithelialization Small 1-33% -Tunneling No -Undermining/Tunneling No -Classification - Thickness Full Thickness without Exposed Support Structure -Exudate Amt None Present (0 %) -Wound Margin Flat & Intact -Granulation Quality N/A -Slough/Fibrin No -Necrosis Amt None Present (0 %) -Structure Exposed N/A -Texture (Zelda-wound Skin Appearance) Assessed Scarring -Moisture (Zelda-wound Skin Appearance No Abnormality ) Assessed -Color (Zelda-wound Skin Appearance) Assessed Hemosiderin Staining -Temperature (Zelda-wound Skin No Abnormality Appearance) (Pt Warm) -Tenderness on Palpation (Zelda-wound No Skin Appearance) -Ulcer Cleansing Rinsed/ Irrigated with Saline -Foul Odor after Cleansing No -Anesthetic Used 5% Lidocaine Gel [Edema Assessment] -Lower Limb Edema Present No WC - Nurse 2 - General Ulcer CM Notes Start: 09/19/17 10:26 Freq: Status: Active Protocol: Activity Type Activity Date Activity User E-Sign Co-Sign Detail Recorded Client Recorded Date Recorded By Document 09/19/17 11:01 DV [id number] 09/19/17 11:06 DV 09/19/17 11:01 Wound Center Nurse 2 [Procedure/Treatment] #5- RT LATERAL ANKLE -Time 11:02 -Correct Patient Yes -Correct Side, Site, Position Yes -Procedure Performed No -Post Debridement Size (cm) - Length 0 -Post Debridement Size (cm) - Width 0 -Post Debridement Size (cm) - Depth 0 -Total Square Cm 0 -Wound/Ulcer Outcome Healed- Epithelialized #4- RT FOOT DORSAL ASPECT -Time 11:02 -Correct Patient Yes -Correct Side, Site, Position Yes -Correct Procedure Yes -Procedure Performed Yes -Type of Procedure Debridement -Clinical Debridement Selective -Post Debridement Size (cm) - Length 0.1 -Post Debridement Size (cm) - Width 0.1 -Post Debridement Size (cm) - Depth 0.1 -Total Square Cm 0.01 -Wound/Ulcer Outcome Not Healed -Ulcer Cleansing Rinsed/ Irrigated with Saline -Foul Odor after Cleansing No -Bioengineered Tissue No -Bleeding Controlled with Pressure -Treatment Response Procedure Tolerated Well #3- LT FOOT DORSAL ASPECT -Time 11:04 -Correct Patient Yes -Correct Side, Site, Position Yes -Procedure Performed No -Post Debridement Size (cm) - Length 0 -Post Debridement Size (cm) - Width 0 -Post Debridement Size (cm) - Depth 0 -Total Square Cm 0 -Wound/Ulcer Outcome Healed- Epithelialized [See Physician Procedure note for Specifics] Pain Scale: 0-10 Numeric [Pain] -Is Patient Pain Free? Yes Musculoskeletal: No Muscle Wasting Neurological: Cranial nerves II-XII grossly intact Psych/Mental Status: Normal Affect Debridement Note Post-Debridement Measurements/Treatment WC - Nurse 2 - General Ulcer CM Notes Start: 09/19/17 10:26 Freq: Status: Active Protocol: Activity Type Activity Date Activity User E-Sign Co-Sign Detail Recorded Client Recorded Date Recorded By Document 09/19/17 11:01 DV [id number] 09/19/17 11:06 DV 09/19/17 11:01 Wound Center Nurse 2 #5- RT LATERAL ANKLE -Time 11:02 -Correct Patient Yes -Correct Side, Site, Position Yes -Procedure Performed No -Post Debridement Size (cm) - Length 0 -Post Debridement Size (cm) - Width 0 -Post Debridement Size (cm) - Depth 0 -Total Square Cm 0 -Wound/Ulcer Outcome Healed- Epithelialized #4- RT FOOT DORSAL ASPECT -Time 11:02 -Correct Patient Yes -Correct Side, Site, Position Yes -Correct Procedure Yes -Procedure Performed Yes -Type of Procedure Debridement -Clinical Debridement Selective -Post Debridement Size (cm) - Length 0.1 -Post Debridement Size (cm) - Width 0.1 -Post Debridement Size (cm) - Depth 0.1 -Total Square Cm 0.01 -Wound/Ulcer Outcome Not Healed -Ulcer Cleansing Rinsed/ Irrigated with Saline -Foul Odor after Cleansing No -Bioengineered Tissue No -Bleeding Controlled with Pressure -Treatment Response Procedure Tolerated Well #3- LT FOOT DORSAL ASPECT -Time 11:04 -Correct Patient Yes -Correct Side, Site, Position Yes -Procedure Performed No -Post Debridement Size (cm) - Length 0 -Post Debridement Size (cm) - Width 0 -Post Debridement Size (cm) - Depth 0 -Total Square Cm 0 -Wound/Ulcer Outcome Healed- Epithelialized Pain Scale: 0-10 Numeric Is Patient Pain Free? Yes Wound debrided: Right Dorsum Foot Wound Grade/Stage: Stage II Type of Debridement: Selective debridement Anesthesia Used: 5% Lidocaine Gel Depth: Down to and including healthy tissue Percentage of wound debrided: 90 Instrument Used: 3mm curette Tissue Removed: Devitalized tissue Severity: Limited To Skin Breakdown Amount of bleeding with debridement: Mild Bleeding Controlled with: Pressure Patient tolerated procedure well Assessment/Plan Assessment: Open wound left foot. - Healed. Open wound right lower extremity/ Foot - Reopened. Open wound Left great toe - Healed. Intellectual Disability. Seizure Disorder. Plan: Wounds have done very well so far and are all for the most part healed but for a minimal area of the right dorsal foot left. Continue daily promogran with adaptic covering over right dorsum foot. Adaptic over left Dorsum until tougher skin. Keep both lower exremities covered to prevent scratching until skin texture returns to normal. Elevate lower extremities when sitted and in bed. Daily protein supplements and protein rich diet. Exercise as tolerated. Follow-up in 1 week. This note was generated with [employer] dictation software. It may contain incorrect words, spelling, and punctuation that were not noted in checking the note before signing.
[2017-09-26 10:32] VITALS: RESP 16; TEMP 36.5; BMI 31.3
--- NOTE | 2017-09-26 15:17 | PCM.WC.PN ---
(1) Open wound of left lower extremity Status: Acute Current Visit: No Qualifiers: Code(s): S81.802A - Unspecified open wound, left lower leg, initial encounter (2) Open wound of right lower extremity Status: Acute Current Visit: Yes Qualifiers: Code(s): S81.801A - Unspecified open wound, right lower leg, initial encounter (3) MRDD Status: Chronic Current Visit: No Type of Wound Date of Service: 09/26/17 Chief Complaint: Open wounds of bilateral lower extremities s/p fall. History of Wound: Mr. Osborne is a 42yo with PMH of cerebral palsy, seizure disorder and intellectual disability who presented here with his caregiver due to bilateral lower extremity wounds. On 19 July 2017 patient was said to have gone into seizure while in the bathroom and subseqeuntly sustained injuries/wounds to his bilateral lower extremity wounds. He has been to the ER, urgent care, his PCP and finally podiatry before being referred here. Per his caregiver he was initially started on clindamycin however this was recently changed to Bactrim. Wounds are said to be improving since being on antibiotics. He is otherwise said to be at his baseline with no documented chills, fever, nausea, vomiting or change in his bowel habit. He appears well also. Progress of Wound: Patient was said to again reopen his right lower extremity wound from scratching. His wrap had been taken off for a shower during which time patient was said to have scratched/reopened his wound. - Physical Exam Vital Signs Temp Pulse Resp BP 97.7 F L 84 16 112/68 09/26/17 10:32 09/19/17 10:28 09/26/17 10:32 09/19/17 10:28 General: Alert, Cooperative, No apparent distress HEENT: Atraumatic, Normocephalic Oral: Moist Mucosa Neck: Supple Lungs: Normal air movement Cardiovascular: Regular rate Skin: Ulcer/ Wound Wound Measurements and Assessment WC - Nurse 1 - General Ulcer Measurement Start: 09/19/17 10:26 Freq: Status: Active Protocol: Activity Type Activity Date Activity User E-Sign Co-Sign Detail Recorded Client Recorded Date Recorded By Document 09/26/17 10:32 [facility] [id number] 09/26/17 10:42 [facility] 09/26/17 10:32 Wound Center Nurse 1 [Ulcer Assessment] #4- RT FOOT DORSAL ASPECT -Combined with other wound No -Current Size (cm) - Length 2.1 -Current Size (cm) - Width 0.9 -Current Size (cm) - Depth 0.1 -Total Square Cm 1.89 -Photo Taken No -Epithelialization None Present -Tunneling No -Undermining/Tunneling No -Circular Undermining No -Exudate Amt Small (1-33%) -Exudate Type Serosanguineous -Wound Margin Distinct, Outline Attached -Granulation Amt Large (67-100%) -Granulation Quality Red -Slough/Fibrin Yes -Necrosis Amt Small (1-33%) -Necrotic Tissue Type Adherent Slough -Structure Exposed None/Limited to Skin Breakdown -Texture (Zelda-wound Skin Appearance) Scarring -Moisture (Zelda-wound Skin Appearance Dry/Scaly ) -Color (Zelda-wound Skin Appearance) Ecchymosis Erythema -Temperature (Zelda-wound Skin No Abnormality Appearance) (Pt Warm) -Tenderness on Palpation (Zelda-wound No Skin Appearance) -Ulcer Cleansing Rinsed/ Irrigated with Saline -Foul Odor after Cleansing No -Anesthetic Used 4% Lidocaine Solution - Nurse 2 - General Ulcer CM Notes Start: 09/19/17 10:26 Freq: Status: Active Protocol: Activity Type Activity Date Activity User E-Sign Co-Sign Detail Recorded Client Recorded Date Recorded By Document 09/26/17 11:42 DV [id number] 09/26/17 11:43 DV 09/26/17 11:42 Wound Center Nurse 2 [Procedure/Treatment] -Time 11:42 -Correct Patient Yes -Correct Side, Site, Position Yes -Correct Procedure Yes -Procedure Performed Yes -Type of Procedure Debridement -Clinical Debridement Subcutaneous -Post Debridement Size (cm) - Length 2.0 -Post Debridement Size (cm) - Width 0.6 -Post Debridement Size (cm) - Depth 0.1 -Total Square Cm 1.20 -Wound/Ulcer Outcome Not Healed -Ulcer Cleansing Rinsed/ Irrigated with Saline -Foul Odor after Cleansing No -Bioengineered Tissue No -Bleeding Controlled with Pressure -Treatment Response Procedure Tolerated Well [See Physician Procedure note for Specifics] Pain Scale: 0-10 Numeric [Pain] -Is Patient Pain Free? Yes Musculoskeletal: No Muscle Wasting Psych/Mental Status: Normal Affect Debridement Note Post-Debridement Measurements/Treatment - Nurse 2 - General Ulcer CM Notes Start: 09/19/17 10:26 Freq: Status: Active Protocol: Activity Type Activity Date Activity User E-Sign Co-Sign Detail Recorded Client Recorded Date Recorded By Document 09/19/17 11:01 DV [id number] 09/19/17 11:06 DV Document 09/26/17 11:42 DV [id number] 09/26/17 11:43 DV 09/19/17 09/26/17 11:01 11:42 Wound Center Nurse 2 #5- RT LATERAL ANKLE -Time 11:02 -Correct Patient Yes -Correct Side, Site, Position Yes -Procedure Performed No -Post Debridement Size (cm) - Length 0 -Post Debridement Size (cm) - Width 0 -Post Debridement Size (cm) - Depth 0 -Total Square Cm 0 -Wound/Ulcer Outcome Healed- Epithelialized #4- RT FOOT DORSAL ASPECT -Time 11:02 11:42 -Correct Patient Yes Yes -Correct Side, Site, Position Yes Yes -Correct Procedure Yes Yes -Procedure Performed Yes Yes -Type of Procedure Debridement Debridement -Clinical Debridement Selective Subcutaneous -Post Debridement Size (cm) - Length 0.1 2.0 -Post Debridement Size (cm) - Width 0.1 0.6 -Post Debridement Size (cm) - Depth 0.1 0.1 -Total Square Cm 0.01 1.20 -Wound/Ulcer Outcome Not Healed Not Healed -Ulcer Cleansing Rinsed/ Rinsed/ Irrigated with Irrigated with Saline Saline -Foul Odor after Cleansing No No -Bioengineered Tissue No No -Bleeding Controlled with Pressure Pressure -Treatment Response Procedure Procedure Tolerated Well Tolerated Well #3- LT FOOT DORSAL ASPECT -Time 11:04 -Correct Patient Yes -Correct Side, Site, Position Yes -Procedure Performed No -Post Debridement Size (cm) - Length 0 -Post Debridement Size (cm) - Width 0 -Post Debridement Size (cm) - Depth 0 -Total Square Cm 0 -Wound/Ulcer Outcome Healed- Epithelialized Pain Scale: 0-10 Numeric Is Patient Pain Free? Yes Yes Wound debrided: Right dorsal foot wound. Wound Grade/Stage: Stage I Type of Debridement: Excisional debridement Anesthesia Used: 4% Lidocaine Solution Depth: Down to and including healthy tissue Percentage of wound debrided: 100 Instrument Used: 3mm curette Tissue Removed: Devitalized tissue and Biofilm Severity: Limited To Skin Breakdown Amount of bleeding with debridement: Mild Bleeding Controlled with: Pressure Patient tolerated procedure well Assessment/Plan Active Problems Open wound of right lower extremity (Acute) Assessment: Open wound left foot. - Healed. Open wound right lower extremity/Foot - Reopened. Open wound Left great toe - Healed. Intellectual Disability. Seizure Disorder. Plan: Patient again reopened his right dorsum foot wound. No signs of infection or cellulitis at this time. Continue daily promogran with adaptic covering over right dorsum foot. Again emphasized the need to keep both lower exremities covered to prevent scratching until skin texture returns to normal. Elevate lower extremities when sitted and in bed. Daily protein supplements and protein rich diet. Exercise as tolerated. Follow-up in 1 week. This note was generated with [employer] dictation software. It may contain incorrect words, spelling, and punctuation that were not noted in checking the note before signing.
--- NOTE | 2017-09-26 15:22 | PN.PCM_ITS ---
(1) Open wound of left lower extremity Status: Acute Current Visit: No Qualifiers: Code(s): S81.802A - Unspecified open wound, left lower leg, initial encounter (2) Open wound of right lower extremity Status: Acute Current Visit: Yes Qualifiers: Code(s): S81.801A - Unspecified open wound, right lower leg, initial encounter (3) MRDD Status: Chronic Current Visit: No Type of Wound Date of Service: 09/26/17 Chief Complaint: Open wounds of bilateral lower extremities s/p fall. History of Wound: Mr. Osborne is a 42yo with PMH of cerebral palsy, seizure disorder and intellectual disability who presented here with his caregiver due to bilateral lower extremity wounds. On 19 July 2017 patient was said to have gone into seizure while in the bathroom and subseqeuntly sustained injuries /wounds to his bilateral lower extremity wounds. He has been to the ER, urgent care, his PCP and finally podiatry before being referred here. Per his caregiver he was initially started on clindamycin however this was recently changed to Bactrim. Wounds are said to be improving since being on antibiotics. He is otherwise said to be at his baseline with no documented chills, fever, nausea, vomiting or change in his bowel habit. He appears well also. Progress of Wound: Patient was said to again reopen his right lower extremity wound from scratching. His wrap had been taken off for a shower during which time patient was said to have scratched/reopened his wound. - Physical Exam Vital Signs Temp Pulse Resp BP 97.7 F L 84 16 112/68 09/26/17 10:32 09/19/17 10:28 09/26/17 10:32 09/19/17 10:28 General: Alert, Cooperative, No apparent distress HEENT: Atraumatic, Normocephalic Oral: Moist Mucosa Neck: Supple Lungs: Normal air movement Cardiovascular: Regular rate Skin: Ulcer/ Wound Wound Measurements and Assessment WC - Nurse 1 - General Ulcer Measurement Start: 09/19/17 10:26 Freq: Status: Active Protocol: Activity Type Activity Date Activity User E-Sign Co-Sign Detail Recorded Client Recorded Date Recorded By Document 09/26/17 10:[address] [facility] [id number] 09/26/17 10:[address] [facility] 09/26/17 10:32 Wound Center Nurse 1 [Ulcer Assessment] #4- RT FOOT DORSAL ASPECT -Combined with other wound No -Current Size (cm) - Length 2.1 -Current Size (cm) - Width 0.9 -Current Size (cm) - Depth 0.1 -Total Square Cm 1.89 -Photo Taken No -Epithelialization None Present -Tunneling No -Undermining/Tunneling No -Circular Undermining No -Exudate Amt Small (1-33%) -Exudate Type Serosanguineous -Wound Margin Distinct, Outline Attached -Granulation Amt Large (67-100%) -Granulation Quality Red -Slough/Fibrin Yes -Necrosis Amt Small (1-33%) -Necrotic Tissue Type Adherent Slough -Structure Exposed None/Limited to Skin Breakdown -Texture (Zelda-wound Skin Appearance) Scarring -Moisture (Zelda-wound Skin Appearance Dry/Scaly ) -Color (Zelda-wound Skin Appearance) Ecchymosis Erythema -Temperature (Zelda-wound Skin No Abnormality Appearance) (Pt Warm) -Tenderness on Palpation (Zelda-wound No Skin Appearance) -Ulcer Cleansing Rinsed/ Irrigated with Saline -Foul Odor after Cleansing No -Anesthetic Used 4% Lidocaine Solution - Nurse 2 - General Ulcer CM Notes Start: 09/19/17 10:26 Freq: Status: Active Protocol: Activity Type Activity Date Activity User E-Sign Co-Sign Detail Recorded Client Recorded Date Recorded By Document 09/26/17 11:42 DV [id number] 09/26/17 11:43 DV 09/26/17 11:42 Wound Center Nurse 2 [Procedure/Treatment] -Time 11:42 -Correct Patient Yes -Correct Side, Site, Position Yes -Correct Procedure Yes -Procedure Performed Yes -Type of Procedure Debridement -Clinical Debridement Subcutaneous -Post Debridement Size (cm) - Length 2.0 -Post Debridement Size (cm) - Width 0.6 -Post Debridement Size (cm) - Depth 0.1 -Total Square Cm 1.20 -Wound/Ulcer Outcome Not Healed -Ulcer Cleansing Rinsed/ Irrigated with Saline -Foul Odor after Cleansing No -Bioengineered Tissue No -Bleeding Controlled with Pressure -Treatment Response Procedure Tolerated Well [See Physician Procedure note for Specifics] Pain Scale: 0-10 Numeric [Pain] -Is Patient Pain Free? Yes Musculoskeletal: No Muscle Wasting Psych/Mental Status: Normal Affect Debridement Note Post-Debridement Measurements/Treatment - Nurse 2 - General Ulcer CM Notes Start: 09/19/17 10:26 Freq: Status: Active Protocol: Activity Type Activity Date Activity User E-Sign Co-Sign Detail Recorded Client Recorded Date Recorded By Document 09/19/17 11:01 DV [id number] 09/19/17 11:06 DV Document 09/26/17 11:42 DV [id number] 09/26/17 11:43 DV 09/19/17 09/26/17 11:01 11:42 Wound Center Nurse 2 #5- RT LATERAL ANKLE -Time 11:02 -Correct Patient Yes -Correct Side, Site, Position Yes -Procedure Performed No -Post Debridement Size (cm) - Length 0 -Post Debridement Size (cm) - Width 0 -Post Debridement Size (cm) - Depth 0 -Total Square Cm 0 -Wound/Ulcer Outcome Healed- Epithelialized #4- RT FOOT DORSAL ASPECT -Time 11:02 11:42 -Correct Patient Yes Yes -Correct Side, Site, Position Yes Yes -Correct Procedure Yes Yes -Procedure Performed Yes Yes -Type of Procedure Debridement Debridement -Clinical Debridement Selective Subcutaneous -Post Debridement Size (cm) - Length 0.1 2.0 -Post Debridement Size (cm) - Width 0.1 0.6 -Post Debridement Size (cm) - Depth 0.1 0.1 -Total Square Cm 0.01 1.20 -Wound/Ulcer Outcome Not Healed Not Healed -Ulcer Cleansing Rinsed/ Rinsed/ Irrigated with Irrigated with Saline Saline -Foul Odor after Cleansing No No -Bioengineered Tissue No No -Bleeding Controlled with Pressure Pressure -Treatment Response Procedure Procedure Tolerated Well Tolerated Well #3- LT FOOT DORSAL ASPECT -Time 11:04 -Correct Patient Yes -Correct Side, Site, Position Yes -Procedure Performed No -Post Debridement Size (cm) - Length 0 -Post Debridement Size (cm) - Width 0 -Post Debridement Size (cm) - Depth 0 -Total Square Cm 0 -Wound/Ulcer Outcome Healed- Epithelialized Pain Scale: 0-10 Numeric Is Patient Pain Free? Yes Yes Wound debrided: Right dorsal foot wound. Wound Grade/Stage: Stage I Type of Debridement: Excisional debridement Anesthesia Used: 4% Lidocaine Solution Depth: Down to and including healthy tissue Percentage of wound debrided: 100 Instrument Used: 3mm curette Tissue Removed: Devitalized tissue and Biofilm Severity: Limited To Skin Breakdown Amount of bleeding with debridement: Mild Bleeding Controlled with: Pressure Patient tolerated procedure well Assessment/Plan Active Problems Open wound of right lower extremity (Acute) Assessment: Open wound left foot. - Healed. Open wound right lower extremity/ Foot - Reopened. Open wound Left great toe - Healed. Intellectual Disability. Seizure Disorder. Plan: Patient again reopened his right dorsum foot wound. No signs of infection or cellulitis at this time. Continue daily promogran with adaptic covering over right dorsum foot. Again emphasized the need to keep both lower exremities covered to prevent scratching until skin texture returns to normal. Elevate lower extremities when sitted and in bed. Daily protein supplements and protein rich diet. Exercise as tolerated. Follow-up in 1 week. This note was generated with [employer] dictation software. It may contain incorrect words, spelling, and punctuation that were not noted in checking the note before signing.
[2017-10-03 10:50] VITALS: BP 114/72; PULSE 73; RESP 18; TEMP 36.1; BMI 31.3
--- NOTE | 2017-10-03 11:22 | PCM.WC.PN ---
(1) Open wound of left lower extremity Status: Acute Current Visit: No Qualifiers: Code(s): S81.802A - Unspecified open wound, left lower leg, initial encounter (2) Open wound of right lower extremity Status: Acute Current Visit: Yes Qualifiers: Code(s): S81.801A - Unspecified open wound, right lower leg, initial encounter (3) MRDD Status: Chronic Current Visit: No Type of Wound Date of Service: 10/03/17 Chief Complaint: Open wounds of bilateral lower extremities s/p fall. History of Wound: Mr. Osborne is a 42yo with PMH of cerebral palsy, seizure disorder and intellectual disability who presented here with his caregiver due to bilateral lower extremity wounds. On 19 July 2017 patient was said to have gone into seizure while in the bathroom and subseqeuntly sustained injuries/wounds to his bilateral lower extremity wounds. He has been to the ER, urgent care, his PCP and finally podiatry before being referred here. Per his caregiver he was initially started on clindamycin however this was recently changed to Bactrim. Wounds are said to be improving since being on antibiotics. He is otherwise said to be at his baseline with no documented chills, fever, nausea, vomiting or change in his bowel habit. He appears well also. Progress of Wound: Improved. - Physical Exam Vital Signs Temp Pulse Resp BP 97 F L 73 18 114/72 10/03/17 10:50 10/03/17 10:50 10/03/17 10:50 10/03/17 10:50 General: Alert, Cooperative, No apparent distress HEENT: Atraumatic Oral: Moist Mucosa Neck: Supple Lungs: Normal air movement Cardiovascular: Regular rate Extremities: No cyanosis Wound Measurements and Assessment WC - Nurse 1 - General Ulcer Measurement Start: 09/19/17 10:26 Freq: Status: Active Protocol: Activity Type Activity Date Activity User E-Sign Co-Sign Detail Recorded Client Recorded Date Recorded By Document 10/03/17 10:50 RB [id number] 10/03/17 11:00 RB 10/03/17 10:50 Wound Center Nurse 1 [Ulcer Assessment] #4- RT FOOT DORSAL ASPECT -Combined with other wound No -Current Size (cm) - Length 1.4 -Current Size (cm) - Width 0.5 -Current Size (cm) - Depth 0.1 -Total Square Cm 0.70 -Photo Taken No -Epithelialization Small 1-33% -Tunneling No -Undermining/Tunneling No -Circular Undermining No -Classification - Thickness Full Thickness without Exposed Support Structure -Exudate Amt None Present (0 %) -Wound Margin Distinct, Outline Attached -Granulation Amt Medium (34-66%) -Granulation Quality [place] -Slough/Fibrin Yes -Necrosis Amt Small (1-33%) -Necrotic Tissue Type Adherent Slough -Structure Exposed N/A -Texture (Zelda-wound Skin Appearance) Assessed -Moisture (Zelda-wound Skin Appearance Assessed ) -Color (Zelda-wound Skin Appearance) Assessed -Temperature (Zelda-wound Skin No Abnormality Appearance) (Pt Warm) -Tenderness on Palpation (Zelda-wound No Skin Appearance) -Ulcer Cleansing Rinsed/ Irrigated with Saline -Foul Odor after Cleansing No -Anesthetic Used 4% Lidocaine Solution WC - Nurse 2 - General Ulcer CM Notes Start: 09/19/17 10:26 Freq: Status: Active Protocol: Activity Type Activity Date Activity User E-Sign Co-Sign Detail Recorded Client Recorded Date Recorded By Document 10/03/17 11:14 DV [id number] 10/03/17 11:16 DV 10/03/17 11:14 Wound Center Nurse 2 [Procedure/Treatment] -Time 11:15 -Correct Patient Yes -Correct Side, Site, Position Yes -Correct Procedure Yes -Procedure Performed Yes -Type of Procedure Debridement -Clinical Debridement Selective -Post Debridement Size (cm) - Length 0.1 -Post Debridement Size (cm) - Width 0.1 -Post Debridement Size (cm) - Depth 0.1 -Total Square Cm 0.01 -Wound/Ulcer Outcome Healed- Epithelialized -Ulcer Cleansing Rinsed/ Irrigated with Saline -Bleeding Controlled with NA [See Physician Procedure note for Specifics] Pain Scale: 0-10 Numeric [Pain] -Is Patient Pain Free? Yes Musculoskeletal: No Muscle Wasting Neurological: Cranial nerves II-XII grossly intact Debridement Note Post-Debridement Measurements/Treatment - Nurse 2 - General Ulcer CM Notes Start: 09/19/17 10:26 Freq: Status: Active Protocol: Activity Type Activity Date Activity User E-Sign Co-Sign Detail Recorded Client Recorded Date Recorded By Document 09/19/17 11:01 DV [id number] 09/19/17 11:06 DV Document 09/26/17 11:42 DV [id number] 09/26/17 11:43 DV Document 10/03/17 11:14 DV [id number] 10/03/17 11:16 DV 09/19/17 09/26/17 10/03/17 11:01 11:42 11:14 Wound Center Nurse 2 #5- RT LATERAL ANKLE -Time 11:02 -Correct Patient Yes -Correct Side, Site, Position Yes -Procedure Performed No -Post Debridement Size (cm) - Length 0 -Post Debridement Size (cm) - Width 0 -Post Debridement Size (cm) - Depth 0 -Total Square Cm 0 -Wound/Ulcer Outcome Healed- Epithelialized #4- RT FOOT DORSAL ASPECT -Time 11:02 11:42 11:15 -Correct Patient Yes Yes Yes -Correct Side, Site, Position Yes Yes Yes -Correct Procedure Yes Yes Yes -Procedure Performed Yes Yes Yes -Type of Procedure Debridement Debridement Debridement -Clinical Debridement Selective Subcutaneous Selective -Post Debridement Size (cm) - Length 0.1 2.0 0.1 -Post Debridement Size (cm) - Width 0.1 0.6 0.1 -Post Debridement Size (cm) - Depth 0.1 0.1 0.1 -Total Square Cm 0.01 1.20 0.01 -Wound/Ulcer Outcome Not Healed Not Healed Healed- Epithelialized -Ulcer Cleansing Rinsed/ Rinsed/ Rinsed/ Irrigated with Irrigated with Irrigated with Saline Saline Saline -Foul Odor after Cleansing No No -Bioengineered Tissue No No -Bleeding Controlled with Pressure Pressure NA -Treatment Response Procedure Procedure Tolerated Well Tolerated Well #3- LT FOOT DORSAL ASPECT -Time 11:04 -Correct Patient Yes -Correct Side, Site, Position Yes -Procedure Performed No -Post Debridement Size (cm) - Length 0 -Post Debridement Size (cm) - Width 0 -Post Debridement Size (cm) - Depth 0 -Total Square Cm 0 -Wound/Ulcer Outcome Healed- Epithelialized Pain Scale: 0-10 Numeric Is Patient Pain Free? Yes Yes Yes Wound debrided: Right Dorsal Foot Wound Type of Debridement: Selective debridement Anesthesia Used: 4% Lidocaine Solution Depth: Down to and including healthy tissue Percentage of wound debrided: 80 Instrument Used: 5mm curette Tissue Removed: Scab/Devitalized tissue Severity: Limited To Skin Breakdown Amount of bleeding with debridement: None Patient tolerated procedure well Assessment/Plan Active Problems Open wound of right lower extremity (Acute) Assessment: Open wound left foot. - Healed. Open wound right lower extremity/Foot Healed. Open wound Left great toe - Healed. Intellectual Disability. Seizure Disorder. Plan: Wound has healed. Selective debridement of scab over area done. Area still however easily fraible/fragile. Apply adaptic daily over area for the next 2 weeks. Urged cargiver to keep area wrapped at all times until skin is fully restored. Daily protein supplements and protein rich diet. Exercise as tolerated. Discharged from the wound center. This note was generated with [employer] software. It may contain incorrect words, spelling, and punctuation that were not noted in checking the note before signing.
--- NOTE | 2017-10-03 11:33 | PN.PCM_ITS ---
(1) Open wound of left lower extremity Status: Acute Current Visit: No Qualifiers: Code(s): S81.802A - Unspecified open wound, left lower leg, initial encounter (2) Open wound of right lower extremity Status: Acute Current Visit: Yes Qualifiers: Code(s): S81.801A - Unspecified open wound, right lower leg, initial encounter (3) MRDD Status: Chronic Current Visit: No Type of Wound Date of Service: 10/03/17 Chief Complaint: Open wounds of bilateral lower extremities s/p fall. History of Wound: Mr. Osborne is a 42yo with PMH of cerebral palsy, seizure disorder and intellectual disability who presented here with his caregiver due to bilateral lower extremity wounds. On 19 July 2017 patient was said to have gone into seizure while in the bathroom and subseqeuntly sustained injuries /wounds to his bilateral lower extremity wounds. He has been to the ER, urgent care, his PCP and finally podiatry before being referred here. Per his caregiver he was initially started on clindamycin however this was recently changed to Bactrim. Wounds are said to be improving since being on antibiotics. He is otherwise said to be at his baseline with no documented chills, fever, nausea, vomiting or change in his bowel habit. He appears well also. Progress of Wound: Improved. - Physical Exam Vital Signs Temp Pulse Resp BP 97 F L 73 18 114/72 10/03/17 10:50 10/03/17 10:50 10/03/17 10:50 10/03/17 10:50 General: Alert, Cooperative, No apparent distress HEENT: Atraumatic Oral: Moist Mucosa Neck: Supple Lungs: Normal air movement Cardiovascular: Regular rate Extremities: No cyanosis Wound Measurements and Assessment WC - Nurse 1 - General Ulcer Measurement Start: 09/19/17 10:26 Freq: Status: Active Protocol: Activity Type Activity Date Activity User E-Sign Co-Sign Detail Recorded Client Recorded Date Recorded By Document 10/03/17 10:50 RB [id number] 10/03/17 11:00 RB 10/03/17 10:50 Wound Center Nurse 1 [Ulcer Assessment] #4- RT FOOT DORSAL ASPECT -Combined with other wound No -Current Size (cm) - Length 1.4 -Current Size (cm) - Width 0.5 -Current Size (cm) - Depth 0.1 -Total Square Cm 0.70 -Photo Taken No -Epithelialization Small 1-33% -Tunneling No -Undermining/Tunneling No -Circular Undermining No -Classification - Thickness Full Thickness without Exposed Support Structure -Exudate Amt None Present (0 %) -Wound Margin Distinct, Outline Attached -Granulation Amt Medium (34-66%) -Granulation Quality [place] -Slough/Fibrin Yes -Necrosis Amt Small (1-33%) -Necrotic Tissue Type Adherent Slough -Structure Exposed N/A -Texture (Zelda-wound Skin Appearance) Assessed -Moisture (Zelda-wound Skin Appearance Assessed ) -Color (Zelda-wound Skin Appearance) Assessed -Temperature (Zelda-wound Skin No Abnormality Appearance) (Pt Warm) -Tenderness on Palpation (Zelda-wound No Skin Appearance) -Ulcer Cleansing Rinsed/ Irrigated with Saline -Foul Odor after Cleansing No -Anesthetic Used 4% Lidocaine Solution WC - Nurse 2 - General Ulcer CM Notes Start: 09/19/17 10:26 Freq: Status: Active Protocol: Activity Type Activity Date Activity User E-Sign Co-Sign Detail Recorded Client Recorded Date Recorded By Document 10/03/17 11:14 DV [id number] 10/03/17 11:16 DV 10/03/17 11:14 Wound Center Nurse 2 [Procedure/Treatment] -Time 11:15 -Correct Patient Yes -Correct Side, Site, Position Yes -Correct Procedure Yes -Procedure Performed Yes -Type of Procedure Debridement -Clinical Debridement Selective -Post Debridement Size (cm) - Length 0.1 -Post Debridement Size (cm) - Width 0.1 -Post Debridement Size (cm) - Depth 0.1 -Total Square Cm 0.01 -Wound/Ulcer Outcome Healed- Epithelialized -Ulcer Cleansing Rinsed/ Irrigated with Saline -Bleeding Controlled with NA [See Physician Procedure note for Specifics] Pain Scale: 0-10 Numeric [Pain] -Is Patient Pain Free? Yes Musculoskeletal: No Muscle Wasting Neurological: Cranial nerves II-XII grossly intact Debridement Note Post-Debridement Measurements/Treatment - Nurse 2 - General Ulcer CM Notes Start: 09/19/17 10:26 Freq: Status: Active Protocol: Activity Type Activity Date Activity User E-Sign Co-Sign Detail Recorded Client Recorded Date Recorded By Document 09/19/17 11:01 DV [id number] 09/19/17 11:06 DV Document 09/26/17 11:42 DV [id number] 09/26/17 11:43 DV Document 10/03/17 11:14 DV [id number] 10/03/17 11:16 DV 09/19/17 09/26/17 10/03/17 11:01 11:42 11:14 Wound Center Nurse 2 #5- RT LATERAL ANKLE -Time 11:02 -Correct Patient Yes -Correct Side, Site, Position Yes -Procedure Performed No -Post Debridement Size (cm) - Length 0 -Post Debridement Size (cm) - Width 0 -Post Debridement Size (cm) - Depth 0 -Total Square Cm 0 -Wound/Ulcer Outcome Healed- Epithelialized #4- RT FOOT DORSAL ASPECT -Time 11:02 11:42 11:15 -Correct Patient Yes Yes Yes -Correct Side, Site, Position Yes Yes Yes -Correct Procedure Yes Yes Yes -Procedure Performed Yes Yes Yes -Type of Procedure Debridement Debridement Debridement -Clinical Debridement Selective Subcutaneous Selective -Post Debridement Size (cm) - Length 0.1 2.0 0.1 -Post Debridement Size (cm) - Width 0.1 0.6 0.1 -Post Debridement Size (cm) - Depth 0.1 0.1 0.1 -Total Square Cm 0.01 1.20 0.01 -Wound/Ulcer Outcome Not Healed Not Healed Healed- Epithelialized -Ulcer Cleansing Rinsed/ Rinsed/ Rinsed/ Irrigated with Irrigated with Irrigated with Saline Saline Saline -Foul Odor after Cleansing No No -Bioengineered Tissue No No -Bleeding Controlled with Pressure Pressure NA -Treatment Response Procedure Procedure Tolerated Well Tolerated Well #3- LT FOOT DORSAL ASPECT -Time 11:04 -Correct Patient Yes -Correct Side, Site, Position Yes -Procedure Performed No -Post Debridement Size (cm) - Length 0 -Post Debridement Size (cm) - Width 0 -Post Debridement Size (cm) - Depth 0 -Total Square Cm 0 -Wound/Ulcer Outcome Healed- Epithelialized Pain Scale: 0-10 Numeric Is Patient Pain Free? Yes Yes Yes Wound debrided: Right Dorsal Foot Wound Type of Debridement: Selective debridement Anesthesia Used: 4% Lidocaine Solution Depth: Down to and including healthy tissue Percentage of wound debrided: 80 Instrument Used: 5mm curette Tissue Removed: Scab/Devitalized tissue Severity: Limited To Skin Breakdown Amount of bleeding with debridement: None Patient tolerated procedure well Assessment/Plan Active Problems Open wound of right lower extremity (Acute) Assessment: Open wound left foot. - Healed. Open wound right lower extremity/ Foot Healed. Open wound Left great toe - Healed. Intellectual Disability. Seizure Disorder. Plan: Wound has healed. Selective debridement of scab over area done. Area still however easily fraible/fragile. Apply adaptic daily over area for the next 2 weeks. Urged cargiver to keep area wrapped at all times until skin is fully restored. Daily protein supplements and protein rich diet. Exercise as tolerated. Discharged from the wound center. This note was generated with [employer] software. It may contain incorrect words, spelling, and punctuation that were not noted in checking the note before signing.
[2017-10-10 12:04] VITALS: BP 121/79; PULSE 84; RESP 18; TEMP 37.2; BMI 31.3
--- NOTE | 2017-10-10 13:33 | PCM.WC.PN ---
(1) Open wound of left lower extremity Status: Acute Current Visit: No Qualifiers: Code(s): S81.802A - Unspecified open wound, left lower leg, initial encounter (2) Open wound of right lower extremity Status: Acute Current Visit: Yes Qualifiers: Code(s): S81.801A - Unspecified open wound, right lower leg, initial encounter (3) MRDD Status: Chronic Current Visit: No Type of Wound Date of Service: 10/10/17 Chief Complaint: Open wounds of bilateral lower extremities s/p fall. History of Wound: Mr. Osboren is a 42yo with PMH of cerebral palsy, seizure disorder and intellectual disability who presented here with his caregiver due to bilateral lower extremity wounds. On 19 July 2017 patient was said to have gone into seizure while in the bathroom and subseqeuntly sustained injuries/wounds to his bilateral lower extremity wounds. He has been to the ER, urgent care, his PCP and finally podiatry before being referred here. Per his caregiver he was initially started on clindamycin however this was recently changed to Bactrim. Wounds are said to be improving since being on antibiotics. He is otherwise said to be at his baseline with no documented chills, fever, nausea, vomiting or change in his bowel habit. He appears well also. Progress of Wound: He represents with a ruprured blister of his right dorsal foot. - Physical Exam Vital Signs Temp Pulse Resp BP 98.9 F 84 18 121/79 H 10/10/17 12:04 10/10/17 12:04 10/10/17 12:04 10/10/17 12:04 General: Alert, Cooperative, No apparent distress HEENT: Atraumatic, Normocephalic Oral: Moist Mucosa Neck: Supple Lungs: Normal air movement Cardiovascular: Regular rate Abdomen: Obese Extremities: No cyanosis Wound Measurements and Assessment WC - Nurse 2 - General Ulcer CM Notes Start: 09/19/17 10:26 Freq: Status: Active Protocol: Activity Type Activity Date Activity User E-Sign Co-Sign Detail Recorded Client Recorded Date Recorded By Document 10/10/17 12:22 [facility] [id number] 10/10/17 12:25 [facility] 10/10/17 12:22 Wound Center Nurse 2 [Procedure/Treatment] #6 Right Dorsal Foot -Time 12:23 -Correct Patient Yes -Correct Side, Site, Position Yes -Correct Procedure Yes -Procedure Performed Yes -Type of Procedure Debridement -Clinical Debridement Subcutaneous -Post Debridement Size (cm) - Length 0.3 -Post Debridement Size (cm) - Width 0.5 -Post Debridement Size (cm) - Depth 0.1 -Total Square Cm 0.15 -Wound/Ulcer Outcome Not Healed -Ulcer Cleansing Rinsed/ Irrigated with Saline -Foul Odor after Cleansing No -Bioengineered Tissue No -Bleeding Controlled with NA -Treatment Response Procedure Tolerated Well [See Physician Procedure note for Specifics] Pain Scale: 0-10 Numeric [Pain] -Is Patient Pain Free? Yes Musculoskeletal: No Muscle Wasting Neurological: Neuro grossly intact Debridement Note Post-Debridement Measurements/Treatment WC - Nurse 2 - General Ulcer CM Notes Start: 09/19/17 10:26 Freq: Status: Active Protocol: Activity Type Activity Date Activity User E-Sign Co-Sign Detail Recorded Client Recorded Date Recorded By Document 09/19/17 11:01 DV [id number] 09/19/17 11:06 DV Document 09/26/17 11:42 DV [id number] 09/26/17 11:43 DV Document 10/03/17 11:14 DV [id number] 10/03/17 11:16 DV Document 10/10/17 12:22 [facility] [id number] 10/10/17 12:25 F 09/19/17 09/26/17 10/03/17 11:01 11:42 11:14 Wound Center Nurse 2 #6 Right Dorsal Foot -Time -Correct Patient -Correct Side, Site, Position -Correct Procedure -Procedure Performed -Type of Procedure -Clinical Debridement -Post Debridement Size (cm) - Length -Post Debridement Size (cm) - Width -Post Debridement Size (cm) - Depth -Total Square Cm -Wound/Ulcer Outcome -Ulcer Cleansing -Foul Odor after Cleansing -Bioengineered Tissue -Bleeding Controlled with -Treatment Response #5- RT LATERAL ANKLE -Time 11:02 -Correct Patient Yes -Correct Side, Site, Position Yes -Procedure Performed No -Post Debridement Size (cm) - Length 0 -Post Debridement Size (cm) - Width 0 -Post Debridement Size (cm) - Depth 0 -Total Square Cm 0 -Wound/Ulcer Outcome Healed- Epithelialized #4- RT FOOT DORSAL ASPECT -Time 11:02 11:42 11:15 -Correct Patient Yes Yes Yes -Correct Side, Site, Position Yes Yes Yes -Correct Procedure Yes Yes Yes -Procedure Performed Yes Yes Yes -Type of Procedure Debridement Debridement Debridement -Clinical Debridement Selective Subcutaneous Selective -Post Debridement Size (cm) - Length 0.1 2.0 0.1 -Post Debridement Size (cm) - Width 0.1 0.6 0.1 -Post Debridement Size (cm) - Depth 0.1 0.1 0.1 -Total Square Cm 0.01 1.20 0.01 -Wound/Ulcer Outcome Not Healed Not Healed Healed- Epithelialized -Ulcer Cleansing Rinsed/ Rinsed/ Rinsed/ Irrigated with Irrigated with Irrigated with Saline Saline Saline -Foul Odor after Cleansing No No -Bioengineered Tissue No No -Bleeding Controlled with Pressure Pressure NA -Treatment Response Procedure Procedure Tolerated Well Tolerated Well #3- LT FOOT DORSAL ASPECT -Time 11:04 -Correct Patient Yes -Correct Side, Site, Position Yes -Procedure Performed No -Post Debridement Size (cm) - Length 0 -Post Debridement Size (cm) - Width 0 -Post Debridement Size (cm) - Depth 0 -Total Square Cm 0 -Wound/Ulcer Outcome Healed- Epithelialized Pain Scale: 0-10 Numeric Is Patient Pain Free? Yes Yes Yes 10/10/ 12:22 Wound Center Nurse 2 #6 Right Dorsal Foot -Time 12:23 -Correct Patient Yes -Correct Side, Site, Position Yes -Correct Procedure Yes -Procedure Performed Yes -Type of Procedure Debridement -Clinical Debridement Subcutaneous -Post Debridement Size (cm) - Length 0.3 -Post Debridement Size (cm) - Width 0.5 -Post Debridement Size (cm) - Depth 0.1 -Total Square Cm 0.15 -Wound/Ulcer Outcome Not Healed -Ulcer Cleansing Rinsed/ Irrigated with Saline -Foul Odor after Cleansing No -Bioengineered Tissue No -Bleeding Controlled with NA -Treatment Response Procedure Tolerated Well #5- RT LATERAL ANKLE -Time -Correct Patient -Correct Side, Site, Position -Procedure Performed -Post Debridement Size (cm) - Length -Post Debridement Size (cm) - Width -Post Debridement Size (cm) - Depth -Total Square Cm -Wound/Ulcer Outcome #4- RT FOOT DORSAL ASPECT -Time -Correct Patient -Correct Side, Site, Position -Correct Procedure -Procedure Performed -Type of Procedure -Clinical Debridement -Post Debridement Size (cm) - Length -Post Debridement Size (cm) - Width -Post Debridement Size (cm) - Depth -Total Square Cm -Wound/Ulcer Outcome -Ulcer Cleansing -Foul Odor after Cleansing -Bioengineered Tissue -Bleeding Controlled with -Treatment Response #3- LT FOOT DORSAL ASPECT -Time -Correct Patient -Correct Side, Site, Position -Procedure Performed -Post Debridement Size (cm) - Length -Post Debridement Size (cm) - Width -Post Debridement Size (cm) - Depth -Total Square Cm -Wound/Ulcer Outcome Pain Scale: 0-10 Numeric Is Patient Pain Free? Yes Wound debrided: Right dorsal foot Wound Grade/Stage: Stage I Type of Debridement: Excisional debridement Anesthesia Used: 4% Lidocaine Solution Depth: Down to and including healthy tissue Percentage of wound debrided: 100 Instrument Used: 3mm curette Tissue Removed: DEvitalized tissue Severity: Limited To Skin Breakdown Amount of bleeding with debridement: None Patient tolerated procedure well Assessment/Plan Active Problems Open wound of right lower extremity (Acute) Assessment: Open wound left foot. - Healed. Open wound right lower extremity/Foot Healed. Open wound Left great toe - Healed. Ruptured blister left dorsal foot. Intellectual Disability. Seizure Disorder. Plan: he represents with a ruptured blister with covering intact. Devitailized tissue debrided. procedure was well tolerated. Apply promogran to wound surface with adaptic covering over all other areas of dorsal foot till full skin intergrity is restored. Daily protein supplements and protein rich diet. Exercise as tolerated. Follow up in 2 weeks. This note was generated with [employer] dictation software. It may contain incorrect words, spelling, and punctuation that were not noted in checking the note before signing.
--- NOTE | 2017-10-10 13:38 | PN.PCM_ITS ---
(1) Open wound of left lower extremity Status: Acute Current Visit: No Qualifiers: Code(s): S81.802A - Unspecified open wound, left lower leg, initial encounter (2) Open wound of right lower extremity Status: Acute Current Visit: Yes Qualifiers: Code(s): S81.801A - Unspecified open wound, right lower leg, initial encounter (3) MRDD Status: Chronic Current Visit: No Type of Wound Date of Service: 10/10/17 Chief Complaint: Open wounds of bilateral lower extremities s/p fall. History of Wound: Mr. Osborne is a 42yo with PMH of cerebral palsy, seizure disorder and intellectual disability who presented here with his caregiver due to bilateral lower extremity wounds. On 19 July 2017 patient was said to have gone into seizure while in the bathroom and subseqeuntly sustained injuries /wounds to his bilateral lower extremity wounds. He has been to the ER, urgent care, his PCP and finally podiatry before being referred here. Per his caregiver he was initially started on clindamycin however this was recently changed to Bactrim. Wounds are said to be improving since being on antibiotics. He is otherwise said to be at his baseline with no documented chills, fever, nausea, vomiting or change in his bowel habit. He appears well also. Progress of Wound: He represents with a ruprured blister of his right dorsal foot. - Physical Exam Vital Signs Temp Pulse Resp BP 98.9 F 84 18 121/79 H 10/10/17 12:04 10/10/17 12:04 10/10/17 12:04 10/10/17 12:04 General: Alert, Cooperative, No apparent distress HEENT: Atraumatic, Normocephalic Oral: Moist Mucosa Neck: Supple Lungs: Normal air movement Cardiovascular: Regular rate Abdomen: Obese Extremities: No cyanosis Wound Measurements and Assessment WC - Nurse 2 - General Ulcer CM Notes Start: 09/19/17 10:26 Freq: Status: Active Protocol: Activity Type Activity Date Activity User E-Sign Co-Sign Detail Recorded Client Recorded Date Recorded By Document 10/10/17 12:22 [facility] [id number] 10/10/17 12:25 [facility] 10/10/17 12:22 Wound Center Nurse 2 [Procedure/Treatment] #6 Right Dorsal Foot -Time 12:23 -Correct Patient Yes -Correct Side, Site, Position Yes -Correct Procedure Yes -Procedure Performed Yes -Type of Procedure Debridement -Clinical Debridement Subcutaneous -Post Debridement Size (cm) - Length 0.3 -Post Debridement Size (cm) - Width 0.5 -Post Debridement Size (cm) - Depth 0.1 -Total Square Cm 0.15 -Wound/Ulcer Outcome Not Healed -Ulcer Cleansing Rinsed/ Irrigated with Saline -Foul Odor after Cleansing No -Bioengineered Tissue No -Bleeding Controlled with NA -Treatment Response Procedure Tolerated Well [See Physician Procedure note for Specifics] Pain Scale: 0-10 Numeric [Pain] -Is Patient Pain Free? Yes Musculoskeletal: No Muscle Wasting Neurological: Neuro grossly intact Debridement Note Post-Debridement Measurements/Treatment WC - Nurse 2 - General Ulcer CM Notes Start: 09/19/17 10:26 Freq: Status: Active Protocol: Activity Type Activity Date Activity User E-Sign Co-Sign Detail Recorded Client Recorded Date Recorded By Document 09/19/17 11:01 DV [id number] 09/19/17 11:06 DV Document 09/26/17 11:42 DV [id number] 09/26/17 11:43 DV Document 10/03/17 11:14 DV [id number] 10/03/17 11:16 DV Document 10/10/17 12:22 [facility] [id number] 10/10/17 12:25 F 09/19/17 09/26/17 10/03/17 11:01 11:42 11:14 Wound Center Nurse 2 #6 Right Dorsal Foot -Time -Correct Patient -Correct Side, Site, Position -Correct Procedure -Procedure Performed -Type of Procedure -Clinical Debridement -Post Debridement Size (cm) - Length -Post Debridement Size (cm) - Width -Post Debridement Size (cm) - Depth -Total Square Cm -Wound/Ulcer Outcome -Ulcer Cleansing -Foul Odor after Cleansing -Bioengineered Tissue -Bleeding Controlled with -Treatment Response #5- RT LATERAL ANKLE -Time 11:02 -Correct Patient Yes -Correct Side, Site, Position Yes -Procedure Performed No -Post Debridement Size (cm) - Length 0 -Post Debridement Size (cm) - Width 0 -Post Debridement Size (cm) - Depth 0 -Total Square Cm 0 -Wound/Ulcer Outcome Healed- Epithelialized #4- RT FOOT DORSAL ASPECT -Time 11:02 11:42 11:15 -Correct Patient Yes Yes Yes -Correct Side, Site, Position Yes Yes Yes -Correct Procedure Yes Yes Yes -Procedure Performed Yes Yes Yes -Type of Procedure Debridement Debridement Debridement -Clinical Debridement Selective Subcutaneous Selective -Post Debridement Size (cm) - Length 0.1 2.0 0.1 -Post Debridement Size (cm) - Width 0.1 0.6 0.1 -Post Debridement Size (cm) - Depth 0.1 0.1 0.1 -Total Square Cm 0.01 1.20 0.01 -Wound/Ulcer Outcome Not Healed Not Healed Healed- Epithelialized -Ulcer Cleansing Rinsed/ Rinsed/ Rinsed/ Irrigated with Irrigated with Irrigated with Saline Saline Saline -Foul Odor after Cleansing No No -Bioengineered Tissue No No -Bleeding Controlled with Pressure Pressure NA -Treatment Response Procedure Procedure Tolerated Well Tolerated Well #3- LT FOOT DORSAL ASPECT -Time 11:04 -Correct Patient Yes -Correct Side, Site, Position Yes -Procedure Performed No -Post Debridement Size (cm) - Length 0 -Post Debridement Size (cm) - Width 0 -Post Debridement Size (cm) - Depth 0 -Total Square Cm 0 -Wound/Ulcer Outcome Healed- Epithelialized Pain Scale: 0-10 Numeric Is Patient Pain Free? Yes Yes Yes 10/10/ 12:22 Wound Center Nurse 2 #6 Right Dorsal Foot -Time 12:23 -Correct Patient Yes -Correct Side, Site, Position Yes -Correct Procedure Yes -Procedure Performed Yes -Type of Procedure Debridement -Clinical Debridement Subcutaneous -Post Debridement Size (cm) - Length 0.3 -Post Debridement Size (cm) - Width 0.5 -Post Debridement Size (cm) - Depth 0.1 -Total Square Cm 0.15 -Wound/Ulcer Outcome Not Healed -Ulcer Cleansing Rinsed/ Irrigated with Saline -Foul Odor after Cleansing No -Bioengineered Tissue No -Bleeding Controlled with NA -Treatment Response Procedure Tolerated Well #5- RT LATERAL ANKLE -Time -Correct Patient -Correct Side, Site, Position -Procedure Performed -Post Debridement Size (cm) - Length -Post Debridement Size (cm) - Width -Post Debridement Size (cm) - Depth -Total Square Cm -Wound/Ulcer Outcome #4- RT FOOT DORSAL ASPECT -Time -Correct Patient -Correct Side, Site, Position -Correct Procedure -Procedure Performed -Type of Procedure -Clinical Debridement -Post Debridement Size (cm) - Length -Post Debridement Size (cm) - Width -Post Debridement Size (cm) - Depth -Total Square Cm -Wound/Ulcer Outcome -Ulcer Cleansing -Foul Odor after Cleansing -Bioengineered Tissue -Bleeding Controlled with -Treatment Response #3- LT FOOT DORSAL ASPECT -Time -Correct Patient -Correct Side, Site, Position -Procedure Performed -Post Debridement Size (cm) - Length -Post Debridement Size (cm) - Width -Post Debridement Size (cm) - Depth -Total Square Cm -Wound/Ulcer Outcome Pain Scale: 0-10 Numeric Is Patient Pain Free? Yes Wound debrided: Right dorsal foot Wound Grade/Stage: Stage I Type of Debridement: Excisional debridement Anesthesia Used: 4% Lidocaine Solution Depth: Down to and including healthy tissue Percentage of wound debrided: 100 Instrument Used: 3mm curette Tissue Removed: DEvitalized tissue Severity: Limited To Skin Breakdown Amount of bleeding with debridement: None Patient tolerated procedure well Assessment/Plan Active Problems Open wound of right lower extremity (Acute) Assessment: Open wound left foot. - Healed. Open wound right lower extremity/ Foot Healed. Open wound Left great toe - Healed. Ruptured blister left dorsal foot. Intellectual Disability. Seizure Disorder. Plan: he represents with a ruptured blister with covering intact. Devitailized tissue debrided. procedure was well tolerated. Apply promogran to wound surface with adaptic covering over all other areas of dorsal foot till full skin intergrity is restored. Daily protein supplements and protein rich diet. Exercise as tolerated. Follow up in 2 weeks. This note was generated with [employer] dictation software. It may contain incorrect words, spelling, and punctuation that were not noted in checking the note before signing.
== END 2017-10-19 23:59 ==
LOC: WC 12:15
PROVIDERS: Family Provider Internal Medicine; PCP Internal Medicine; Visit Provider Internal Medicine
DX: S91.331A Puncture wound without foreign body, right foot, initial encounter (principal); W19.XXXA Unspecified fall, initial encounter; G40.909 Epilepsy, unspecified, not intractable, without status epilepticus; G80.9 Cerebral palsy, unspecified; F79 Unspecified intellectual disabilities
CPT/HCPCS: 11042; 97597; 99212; G0463

== ENCOUNTER 2017-10-24 09:58 | Outpatient (RCR) | payer MEDICARE, MEDICAID, SELFPAY ==
[2017-10-20 00:44] VITALS: BP 100/66; PULSE 84; RESP 18; TEMP 37.2; BMI 31.3
[2017-10-24 11:54] VITALS: BP 128/65; PULSE 65; RESP 18; TEMP 36.9; BMI 31.3
--- NOTE | 2017-10-24 12:14 | PCM.WC.PN ---
(1) Open wound of right lower extremity Status: Acute Current Visit: No Qualifiers: Code(s): S81.801A - Unspecified open wound, right lower leg, initial encounter (2) MRDD Status: Chronic Current Visit: No Type of Wound Date of Service: 10/24/17 Chief Complaint: Open wounds of bilateral lower extremities s/p fall. History of Wound: Mr. Osborne is a 42yo with PMH of cerebral palsy, seizure disorder and intellectual disability who presented here with his caregiver due to bilateral lower extremity wounds. On 19 July 2017 patient was said to have gone into seizure while in the bathroom and subseqeuntly sustained injuries/wounds to his bilateral lower extremity wounds. He has been to the ER, urgent care, his PCP and finally podiatry before being referred here. Per his caregiver he was initially started on clindamycin however this was recently changed to Bactrim. Wounds are said to be improving since being on antibiotics. He is otherwise said to be at his baseline with no documented chills, fever, nausea, vomiting or change in his bowel habit. He appears well also. Progress of Wound: Healed. - Physical Exam Vital Signs Temp Pulse Resp BP 98.4 F 65 18 128/65 H 10/24/17 11:54 10/24/17 11:54 10/24/17 11:54 10/24/17 11:54 General: Cooperative, No apparent distress HEENT: Atraumatic, Normocephalic Oral: Moist Mucosa Neck: Supple Lungs: Normal air movement, No rales Wound Measurements and Assessment WC - Nurse 1 - General Ulcer Measurement Start: 10/24/17 11:54 Freq: Status: Active Protocol: Activity Type Activity Date Activity User E-Sign Co-Sign Detail Recorded Client Recorded Date Recorded By Document 10/24/17 11:54 RB [id number] 10/24/17 12:03 RB 10/24/17 11:54 Wound Center Nurse 1 [Ulcer Assessment] #6 Right Dorsal Foot -Combined with other wound No -Current Size (cm) - Length 0.1 -Current Size (cm) - Width 0.1 -Current Size (cm) - Depth 0.1 -Total Square Cm 0.01 -Photo Taken No -Tunneling No -Undermining/Tunneling No -Circular Undermining No -Classification - Thickness Full Thickness without Exposed Support Structure -Exudate Amt None Present (0 %) -Wound Margin Distinct, Outline Attached -Granulation Amt Large (67-100%) -Granulation Quality [place] -Slough/Fibrin No -Necrosis Amt None Present (0 %) -Structure Exposed N/A -Texture (Zelda-wound Skin Appearance) Assessed -Moisture (Zelda-wound Skin Appearance Assessed ) -Color (Zelda-wound Skin Appearance) Assessed -Temperature (Zedla-wound Skin No Abnormality Appearance) (Pt Warm) -Tenderness on Palpation (Zelda-wound No Skin Appearance) -Foul Odor after Cleansing No -Anesthetic Used 5% Lidocaine Gel Musculoskeletal: No Muscle Wasting Debridement Note No debridement was completed today Assessment/Plan Assessment: Open wound left foot. - Healed. Open wound right lower extremity/Foot Healed. Open wound Left great toe - Healed. Ruptured blister Right dorsal foot - healed. Intellectual Disability. Seizure Disorder. Plan: Right lower extremity wound has healed. Continue moisturizing area adequately and keep area covered until full skin intergrity is restored. Daily protein supplements and protein rich diet. Exercise as tolerated. Discharged from the wound center. This note was generated with [employer] dictation software. It may contain incorrect words, spelling, and punctuation that were not noted in checking the note before signing.
--- NOTE | 2017-10-24 12:18 | PN.PCM_ITS ---
(1) Open wound of right lower extremity Status: Acute Current Visit: No Qualifiers: Code(s): S81.801A - Unspecified open wound, right lower leg, initial encounter (2) MRDD Status: Chronic Current Visit: No Type of Wound Date of Service: 10/24/17 Chief Complaint: Open wounds of bilateral lower extremities s/p fall. History of Wound: Mr. Osborne is a 42yo with PMH of cerebral palsy, seizure disorder and intellectual disability who presented here with his caregiver due to bilateral lower extremity wounds. On 19 July 2017 patient was said to have gone into seizure while in the bathroom and subseqeuntly sustained injuries /wounds to his bilateral lower extremity wounds. He has been to the ER, urgent care, his PCP and finally podiatry before being referred here. Per his caregiver he was initially started on clindamycin however this was recently changed to Bactrim. Wounds are said to be improving since being on antibiotics. He is otherwise said to be at his baseline with no documented chills, fever, nausea, vomiting or change in his bowel habit. He appears well also. Progress of Wound: Healed. - Physical Exam Vital Signs Temp Pulse Resp BP 98.4 F 65 18 128/65 H 10/24/17 11:54 10/24/17 11:54 10/24/17 11:54 10/24/17 11:54 General: Cooperative, No apparent distress HEENT: Atraumatic, Normocephalic Oral: Moist Mucosa Neck: Supple Lungs: Normal air movement, No rales Wound Measurements and Assessment WC - Nurse 1 - General Ulcer Measurement Start: 10/24/17 11:54 Freq: Status: Active Protocol: Activity Type Activity Date Activity User E-Sign Co-Sign Detail Recorded Client Recorded Date Recorded By Document 10/24/17 11:54 RB [id number] 10/24/17 12:03 RB 10/24/17 11:54 Wound Center Nurse 1 [Ulcer Assessment] #6 Right Dorsal Foot -Combined with other wound No -Current Size (cm) - Length 0.1 -Current Size (cm) - Width 0.1 -Current Size (cm) - Depth 0.1 -Total Square Cm 0.01 -Photo Taken No -Tunneling No -Undermining/Tunneling No -Circular Undermining No -Classification - Thickness Full Thickness without Exposed Support Structure -Exudate Amt None Present (0 %) -Wound Margin Distinct, Outline Attached -Granulation Amt Large (67-100%) -Granulation Quality [place] -Slough/Fibrin No -Necrosis Amt None Present (0 %) -Structure Exposed N/A -Texture (Zelda-wound Skin Appearance) Assessed -Moisture (Zelda-wound Skin Appearance Assessed ) -Color (Zelda-wound Skin Appearance) Assessed -Temperature (Zelda-wound Skin No Abnormality Appearance) (Pt Warm) -Tenderness on Palpation (Zelda-wound No Skin Appearance) -Foul Odor after Cleansing No -Anesthetic Used 5% Lidocaine Gel Musculoskeletal: No Muscle Wasting Debridement Note No debridement was completed today Assessment/Plan Assessment: Open wound left foot. - Healed. Open wound right lower extremity/ Foot Healed. Open wound Left great toe - Healed. Ruptured blister Right dorsal foot - healed. Intellectual Disability. Seizure Disorder. Plan: Right lower extremity wound has healed. Continue moisturizing area adequately and keep area covered until full skin intergrity is restored. Daily protein supplements and protein rich diet. Exercise as tolerated. Discharged from the wound center. This note was generated with [employer] dictation software. It may contain incorrect words, spelling, and punctuation that were not noted in checking the note before signing.
== END 2017-11-18 23:59 ==
LOC: WC 09:58
PROVIDERS: Family Provider Internal Medicine; PCP Internal Medicine; Visit Provider Internal Medicine
DX: Z09 Encounter for follow-up examination after completed treatment for conditions other than malignant neoplasm (principal); G40.909 Epilepsy, unspecified, not intractable, without status epilepticus; F79 Unspecified intellectual disabilities; G80.9 Cerebral palsy, unspecified
CPT/HCPCS: 99212; G0463

== ENCOUNTER 2018-11-19 10:58 | Emergency (ER) | payer MEDICARE, MEDICAID, SELFPAY ==
[2018-11-19 10:59] VITALS: BP 131/120; PULSE 87; RESP 23; TEMP 36.5; O2SAT 96; BMI 33.4
--- NOTE | 2018-11-19 11:05 | EKG12_ITS ---
Test Reason : CP Blood Pressure : / mmHG Vent. Rate : 078 BPM Atrial Rate : 078 BPM P-R Int : 150 ms QRS Dur : 088 ms QT Int : 388 ms P-R-T Axes : 022 -31 008 degrees QTc Int : 442 ms Normal sinus rhythm Left axis deviation Abnormal ECG Confirmed by MYRNA SERVIN ([id number]), subeditor VANIA GARCIA ([id number]) on 11/24/2018 2:00:32 PM Referred By: BJ Confirmed By:LEFTY SERVIN
--- NOTE | 2018-11-19 11:09 | ED.VIS.GEN ---
History of Present Illness Chief Complaint: Chest Pain Detail of Chief Complaint: Limited secondary to MRDD Informant: Patient, - - Caregiver Limited by: - - Cognitive impairment secondary to MRDD Onset: Today Context: Sudden Onset Timing: Intermittent Quality: Sharp burning Location: Points to epigastrium Current Severity: - - Initially stated no pain. Upon further questioning uncertain if he may have mild burning. Maximum Severity: Severe Worsened by: Unable to determine Relieved by: Nothing Associated Symptoms: nothing per caregiver who gave report from workshop Narrative: Patient is a 43-year-old male who presents with burning epigastric discomfort that started at workshop. Duration possibly 30 minutes. presently he may have mild epigastric pain. Patient will answer multiple-choice questions. Based on my review he has no HEENT symptoms. He denies palpitations or rapid heartbeat. He denies shortness of breath. He denies nausea or vomiting. He is status post cholecystectomy. He has braces lower extremities secondary to corrective surgery. Prior similar symptoms: No Recent Illness/Hospitalization: No - Past Medical History (1) Cerebral palsy Status: Chronic (2) MRDD Status: Chronic (3) Seizure disorder Status: Chronic Past Medical History - Allergies and Home Meds Allergies/Adverse Reactions: Allergies cat dander Allergy (Verified 09/13/17 11:39) cough divalproex sodium [From Depakote] Adverse Reaction (Verified 09/13/17 11:39) Other valproate sodium [From Depakene] Adverse Reaction (Verified 09/13/17 11:39) Other valproic acid Adverse Reaction (Verified 09/13/17 11:39) affects manager parking adversly Primary Care Physician: Camille Graves MD [Primary Care Provider] - Prior records reviewed: Yes Surgical History: noncontributory Lives: - - prison Smoking Status: Never smoker Alcohol: None Drugs: None - Family History Maternal Family History: Reports: - - Adopted Review of Systems ROS: Unable to Obtain - History limited General: Denies: Fever Cardiovascular: Denies: Chest pain, Palpitations Respiratory: Denies: Dyspnea, Cough Gastrointestinal: Reports: Abdominal pain. Denies: Nausea, Vomiting, Diarrhea Musculoskeletal: Denies: Neck pain, Back pain, Extremity Pain Skin: Denies: Rash Neurological: Denies: Headache, Weakness Physical Exam Vital Signs/Narrative: Vital Signs Temp Pulse Resp BP Pulse Ox 11/19/18 10:59 97.7 F L 87 23 H 131/120 H 96 Inital Vital Signs reviewed: Yes General: Well nourished, Well developed, No Acute Distress Head: Normocephalic, Atraumatic Eyes: Perrl, EOMI. Negative for: Pale conjunctiva, Scleral icterus, - ENT: Moist mucous membranes, No rhinorrhea Neck: Supple, Nontender, No lymphadenopathy, No JVD, - Cardiovascular: Regular rate, Regular rhythm, No murmurs, Normal S1, Normal S2 Respiratory: No distress, CTA bilaterally, Chest nontender Abdomen: Soft, Nondistended, Normal bowel sounds, No masses, Tender - Epigastric area. No tenderness in the right or left upper quadrant.. Negative for: Nontender Back: Nontender, Normal Inspection. Negative for: CVA tenderness Extremities: Nontender, No edema Skin: Normal color, No rash Neurological: Alert Psychological: Normal affect Diagnostic/Tx/Re-eval - Rhythm Strip Rhythm Strip: Sinus Rhythm Rate: 74 Ectopy: None - EKG Initial EKG Interpretation: Sinus Rhythm - Ventricular rate 78. LA interval, QRS duration and QT interval normal. [place] to the left. There is no ischemic changes. - Medical Decision Making Because of language barrier will obtain EKG. Because he localizes pain to epigastric described as burning and there is discomfort in the epigastric area to palpation will treat with GI cocktail. Review of records indicates he has history of reflux/hyper acid production. Patient was reassessed at 1155. Heartburn resolved with GI cocktail. With history of increased acid production and resolution with GI cocktail suspect gastritis. ED Disposition - Plan for ED Patient: Disposition: Home or Assisted Living Diagnosis: Acute epigastric pain Instructions: ED PUD Referrals: Camille Graves MD [Primary Care Provider] - As Needed
--- NOTE | 2018-11-19 11:13 | ED.DCSUM_ITS ---
History of Present Illness Chief Complaint: Chest Pain Detail of Chief Complaint: Limited secondary to MRDD Informant: Patient, - - Caregiver Limited by: - - Cognitive impairment secondary to MRDD Onset: Today Context: Sudden Onset Timing: Intermittent Quality: Sharp burning Location: Points to epigastrium Current Severity: - - Initially stated no pain. Upon further questioning uncertain if he may have mild burning. Maximum Severity: Severe Worsened by: Unable to determine Relieved by: Nothing Associated Symptoms: nothing per caregiver who gave report from workshop Narrative: Patient is a 43-year-old male who presents with burning epigastric discomfort that started at workshop. Duration possibly 30 minutes. presently he may have mild epigastric pain. Patient will answer multiple-choice questions. Based on my review he has no HEENT symptoms. He denies palpitations or rapid heartbeat. He denies shortness of breath. He denies nausea or vomiting. He is status post cholecystectomy. He has braces lower extremities secondary to corrective surgery. Prior similar symptoms: No Recent Illness/Hospitalization: No - Past Medical History (1) Cerebral palsy Status: Chronic (2) MRDD Status: Chronic (3) Seizure disorder Status: Chronic Past Medical History - Allergies and Home Meds Allergies/Adverse Reactions: Allergies cat dander Allergy (Verified 09/13/17 11:39) cough divalproex sodium [From Depakote] Adverse Reaction (Verified 09/13/17 11:39) Other valproate sodium [From Depakene] Adverse Reaction (Verified 09/13/17 11:39) Other valproic acid Adverse Reaction (Verified 09/13/17 11:39) affects deck scaler adversly Primary Care Physician: Camille Graves MD [Primary Care Provider] - Prior records reviewed: Yes Surgical History: noncontributory Lives: - - senior living Smoking Status: Never smoker Alcohol: None Drugs: None - Family History Maternal Family History: Reports: - - Adopted Review of Systems ROS: Unable to Obtain - History limited General: Denies: Fever Cardiovascular: Denies: Chest pain, Palpitations Respiratory: Denies: Dyspnea, Cough Gastrointestinal: Reports: Abdominal pain. Denies: Nausea, Vomiting, Diarrhea Musculoskeletal: Denies: Neck pain, Back pain, Extremity Pain Skin: Denies: Rash Neurological: Denies: Headache, Weakness Physical Exam Vital Signs/Narrative: Vital Signs Temp Pulse Resp BP Pulse Ox 11/19/18 10:59 97.7 F L 87 23 H 131/120 H 96 Inital Vital Signs reviewed: Yes General: Well nourished, Well developed, No Acute Distress Head: Normocephalic, Atraumatic Eyes: Perrl, EOMI. Negative for: Pale conjunctiva, Scleral icterus, - ENT: Moist mucous membranes, No rhinorrhea Neck: Supple, Nontender, No lymphadenopathy, No JVD, - Cardiovascular: Regular rate, Regular rhythm, No murmurs, Normal S1, Normal S2 Respiratory: No distress, CTA bilaterally, Chest nontender Abdomen: Soft, Nondistended, Normal bowel sounds, No masses, Tender - Epigastric area. No tenderness in the right or left upper quadrant.. Negative for: Nontender Back: Nontender, Normal Inspection. Negative for: CVA tenderness Extremities: Nontender, No edema Skin: Normal color, No rash Neurological: Alert Psychological: Normal affect Diagnostic/Tx/Re-eval - Rhythm Strip Rhythm Strip: Sinus Rhythm Rate: 74 Ectopy: None - EKG Initial EKG Interpretation: Sinus Rhythm - Ventricular rate 78. AR interval, QRS duration and QT interval normal. [place] to the left. There is no ischemic changes. - Medical Decision Making Because of language barrier will obtain EKG. Because he localizes pain to epigastric described as burning and there is discomfort in the epigastric area to palpation will treat with GI cocktail. Review of records indicates he has history of reflux/hyper acid production. Patient was reassessed at 1155. Heartburn resolved with GI cocktail. With history of increased acid production and resolution with GI cocktail suspect gastritis. ED Disposition - Plan for ED Patient: Disposition: Home or Assisted Living Diagnosis: Acute epigastric pain Instructions: ED PUD Referrals: Camille Graves MD [Primary Care Provider] - As Needed
[2018-11-19 11:20] VITALS: BP 111/78; PULSE 83; RESP 20; O2SAT 97
[2018-11-19] MEDS: Mag Hydrox/Al Hydrox/Simeth 30 ML UDC PO (11:20)
[2018-11-19 12:05] VITALS: BP 130/65; PULSE 65; RESP 16; O2SAT 99
== END 2018-11-19 12:32 | disposition home or self-care (01) ==
PROVIDERS: Emergency Provider Emergency Medicine; Family Provider Internal Medicine; PCP Internal Medicine
DX: R10.13 Epigastric pain (principal); G80.9 Cerebral palsy, unspecified; F79 Unspecified intellectual disabilities; G40.909 Epilepsy, unspecified, not intractable, without status epilepticus; K21.9 Gastro-esophageal reflux disease without esophagitis; Z90.49 Acquired absence of other specified parts of digestive tract; Z79.899 Other long term (current) drug therapy
CPT/HCPCS: 93005; 99283

== ENCOUNTER 2019-06-30 14:46 | Emergency (ER) | payer MEDICARE, MEDICAID, SELFPAY ==
[2019-06-30 14:47] VITALS: BP 113/71; PULSE 87; RESP 18; TEMP 36.6; O2SAT 98; BMI 33.5
--- NOTE | 2019-06-30 15:10 | ED.VIS.GEN ---
History of Present Illness Chief Complaint: Wound Check Narrative: Patient presenting for a wound check. Patient had a vagal nerve stimulator placed at someplace in [place] around [facility]. Patient on Saturday was noticed to have some slight dehiscence of the wound, and apparently a workshop today it was noted to be draining. He was complaining that it was itching. There were no reports of fevers chills nausea vomiting or diarrhea. Pain is mild with no exacerbating relieving factors. Was unable to elicit a description of the drainage coming from the wound. Past Medical History - Allergies and Home Meds Allergies/Adverse Reactions: Allergies cat dander Allergy (Verified 06/30/19 14:52) cough divalproex sodium [From Depakote] Adverse Reaction (Verified 06/30/19 14:52) Other valproate sodium [From Depakene] Adverse Reaction (Verified 06/30/19 14:52) Other valproic acid Adverse Reaction (Verified 06/30/19 14:52) affects lathe set up operator adversly Primary Care Physician: Camille Graves MD [Primary Care Provider] - Past Medical History: - - Vagal nerve stimulator Surgical History: noncontributory Smoking Status: Never smoker - Family History Maternal Family History: Reports: - - Adopted Review of Systems All systems negative except as indicated General: Denies: Chills, Fever Respiratory: Denies: Cough Gastrointestinal: Denies: Nausea, Vomiting Musculoskeletal: Denies: Myalgias Skin: Reports: Rash, Wounds Neurological: Denies: Headache Hematologic: Denies: Easy bruising Allergy: Denies: Swelling of the mouth Physical Exam Vital Signs/Narrative: Vital Signs Temp Pulse Resp BP Pulse Ox 06/30/19 14:47 97.9 F 87 18 113/71 98 Inital Vital Signs reviewed: Yes General: Well nourished, Well developed, No Acute Distress Head: Normocephalic, Atraumatic Eyes: EOMI ENT: Moist mucous membranes Neck: Supple Cardiovascular: Regular rate, Regular rhythm, - - 2+ radial pulses Respiratory: No distress Extremities: Nontender Skin: - - Examination of the patient's left anterior chest where his device was placed shows a superficial area of dehiscence with granulation tissue. There is minimal irritation surrounding this which likely is secondary to the paper tape that is been used to cover it. No evidence of warmth erythema or fluctuance or induration. Neurological: Alert Diagnostic/Tx/Re-eval - Medical Decision Making Patient presented for a wound check. Physical exam demonstrates a very superficial dehiscence with granulation tissue and no evidence of infection. penitentiary workers were recommended on conservative management measures. ED Disposition - Plan for ED Patient: Disposition: Home or Assisted Living Diagnosis: Visit for wound check Instructions: POST OP WOUND CHECK, Pain Referrals: Camille Graves MD [Primary Care Provider] - As Needed
[2019-06-30 15:37] VITALS: RESP 16
--- NOTE | 2019-06-30 15:38 | ED.RN ---
REVIEWED D/C INSTRUCTIONS, FOLLOW UP CARE, AND S/S THAT WOULD WARRANT A RETURN TO THE ED WITH FACILITY STAFF. STAFF VERBALIZED AN UNDERSTANDING AND DENIES FURTHER QUESTIONS FOR THIS RN. PT SKIN P/W/D, RESP EVEN AND UNLABORED, NO DISTRESS NOTED. PT ASSISTED OUT OF ED IN WHEELCHAIR.
== END 2019-06-30 15:39 | disposition home or self-care (01) ==
PROVIDERS: Emergency Provider Emergency Medicine; Family Provider Internal Medicine; PCP Internal Medicine
DX: Z48.01 Encounter for change or removal of surgical wound dressing (principal)
CPT/HCPCS: 99282

== ENCOUNTER 2019-07-06 16:31 | Emergency (ER) | payer MEDICARE, MEDICAID, SELFPAY ==
[2019-07-06 16:33] VITALS: BP 138/97; PULSE 88; RESP 35; TEMP 36.9; O2SAT 92; BMI 41.9
[2019-07-06 16:53] VITALS: TEMP 36.9
--- NOTE | 2019-07-06 16:56 | EKG12_ITS ---
Test Reason : CP Blood Pressure : / mmHG Vent. Rate : 084 BPM Atrial Rate : 084 BPM P-R Int : 148 ms QRS Dur : 080 ms QT Int : 368 ms P-R-T Axes : 040 -07 033 degrees QTc Int : 434 ms Normal sinus rhythm Normal ECG Confirmed by MARIANO COY, CLARKE ([id number]), web editor HÉCTOR MACDONALD ([id number]) on 07/08/2019 12:00:02 PM Referred By: EMMETT Confirmed By:CLARKE QUINTANA MD
--- NOTE | 2019-07-06 16:56 | ED.VIS.GEN ---
History of Present Illness Chief Complaint: Chest Pain Informant: Patient, [facility] Onset: Today Narrative: Here with staff and caregivers from [facility] for evaluation. Reports had vomiting diarrhea Saturday which has resolved. Has been tolerant oral fluids. Today reported. He had increased respiratory breathing. He denies cough or fevers. History of cerebral palsy, intermittent explosive disorder and anxiety. Initially reported chest pain however patient points to his abdomen. No other complaints. Prior similar symptoms: No Past Medical History - Allergies and Home Meds Allergies/Adverse Reactions: Allergies cat dander Allergy (Verified 07/06/19 16:32) cough divalproex sodium [From Depakote] Adverse Reaction (Verified 07/06/19 16:32) Other valproate sodium [From Depakene] Adverse Reaction (Verified 07/06/19 16:32) Other valproic acid Adverse Reaction (Verified 07/06/19 16:32) affects counterintelligence/humint specialist adversly Primary Care Physician: Camille Graves MD [Primary Care Provider] - Surgical History: noncontributory Smoking Status: Never smoker - Family History Maternal Family History: Reports: - - Adopted Review of Systems General: Denies: Chills, Fever, Sweats Eyes: Denies: Visual changes - bilaterally, Diplopia ENT: Denies: Rhinorrhea, Sore throat Cardiovascular: Denies: Chest pain, Palpitations Respiratory: Reports: Dyspnea. Denies: Cough, Dyspnea on exertion Gastrointestinal: Reports: Abdominal pain. Denies: Nausea, Vomiting, Diarrhea, Melena, Hematochezia Genitourinary: Denies: Dysuria, Hematuria, Frequency Musculoskeletal: Denies: Back pain, Extremity Pain Skin: Denies: Rash, Wounds Neurological: Denies: Headache, Weakness, Numbness Physical Exam Vital Signs/Narrative: Vital Signs Temp Pulse Resp BP Pulse Ox 07/06/19 16:53 98.4 F 07/06/19 16:33 98.4 F 88 35 H 138/97 H 92 Inital Vital Signs reviewed: Yes General: Well nourished, Well developed, No Acute Distress Head: Normocephalic, Atraumatic Eyes: Perrl, EOMI ENT: Moist mucous membranes, No rhinorrhea Neck: Supple, Nontender Cardiovascular: Regular rate, Regular rhythm, No murmurs Respiratory: No distress, CTA bilaterally, Chest nontender Abdomen: Soft, Nontender, Nondistended, Normal bowel sounds Back: Nontender, Normal Inspection Extremities: Nontender, No edema Skin: Normal color, No rash Neurological: Alert, Oriented x3, Cranial nerves II-XII grossly intact, Normal Strength, Normal Sensation Psychological: Normal affect, Normal Mood Diagnostic/Tx/Re-eval Clinical Impression(s) from Imaging Studies Chest X-Ray 07/06/19 17:09 IMPRESSION: Very low lung volumes. Mild atelectasis in the lung bases. Electronically Signed: Tyree Evans MD at 17:27 EST , Service support , Abnormal Lab Results 07/06/19 07/06/19 16:30 16:30 WBC 8.8 RBC 4.73 Hgb 15.3 Hct 44.2 MCV 93.4 MCH 32.3 H MCHC 34.6 RDW Std Deviation 41.9 RDW Coeff of Krishna 12.1 Plt Count 300 MPV 9.6 Sodium 137 Potassium 3.3 L Chloride 107 Carbon Dioxide 23.0 Anion Gap 7 BUN 19 H Creatinine 0.89 Estim Creat Clear Calc 100.06 Est GFR (MDRD) Af Amer 120 Est GFR (MDRD) Non-Af 100 BUN/Creatinine Ratio 21.4 H Glucose 93 Calcium 8.5 Total Bilirubin 0.20 AST 23 ALT 33 Alkaline Phosphatase 84 Troponin I < 0.015 Total Protein 7.1 Albumin 3.7 Globulin 3.4 Albumin/Globulin Ratio 1.1 Lipase 111 - EKG Initial EKG Interpretation: Sinus Rhythm - Sinus rhythm 84, no ST or T wave changes. - Medical Decision Making Patient nontoxic, does have cerebral palsy history. EKG from protocol noted sinus rate of 84 with no acute changes. To do a cardiac work-up which she complained presentation was negative. With him pointing with abdominal discomfort abdominal labs obtained normal white count normal potassium was 3.3. Had diarrhea couple days ago. This orally replaced. He is tolerating oral intake. Reassured with caregivers. They will monitor symptoms. Signs and symptom discussed to return. All questions were answered. ED Disposition - Plan for ED Patient: Disposition: Home or Assisted Living Diagnosis: Nonspecific abdominal pain, Vomiting, Diarrhea, Hypokalemia Instructions: ABDOMINAL PAIN, Unkown Cause, (Male) Referrals: Camille Graves MD [Primary Care Provider] - 3-5 Days Additional Instructions: Labs normal except for potassium 3.3. Is orally placed. Continue oral fluids at home. Monitor symptoms. Return if anything worsens.
--- NOTE | 2019-07-06 17:09 | RAD_ITS ---
STUDY: X-RAY CHEST REASON FOR EXAM: Male, 44 years old. Cough TECHNIQUE: Frontal and lateral views of the chest. COMPARISON: 09/13/2017 FINDINGS: Very low lung volumes. Probable mild atelectasis of the lung bases. No gross effusions. Normal size heart. Normal mediastinum and roni. Normal visualized pulmonary arteries. Normal visualized aortic arch and descending thoracic aorta. Normal visualized thoracic spine. Normal visualized ribs, clavicles, and shoulders. There is no demonstrated abnormality of the visualized soft tissue structures of the upper abdomen. Stable appearance of neurostimulator in the left chest wall. RAD/Chest PA and Lateral IMPRESSION: Very low lung volumes. Mild atelectasis in the lung bases. Electronically Signed: Tyree Evans MD at 17:27 EST , Service support ,
[2019-07-06 17:32] VITALS: BP 144/104; PULSE 95; RESP 28; O2SAT 90
[2019-07-06 17:52] LABS: Hematocrit 44.2 % (40-54); Hemoglobin 15.3 g/dL (13.0-16.5); Mean Corp Hgb Conc 34.6 g/dL (32-36); Mean Corpuscular Hgb 32.3 pg (27.0-32.0); Mean Corpuscular Volume 93.4 fL (80-94); Mean Platelet Vol. 9.6 fl (6.2-12.0); Platelet Count 300 K/mm3 (150-450); RBC Distribution Width CV 12.1 % (11.6-14.6); RBC Distribution Width SD 41.9 fl (35.1-43.9); Red Blood Count 4.73 M/mm3 (4.6-6.2); White Blood Count 8.8 K/mm3 (4.4-11.0)
[2019-07-06 18:00] VITALS: BP 152/93; PULSE 90; RESP 35; O2SAT 97
[2019-07-06 18:41] LABS: ALB/GLOB Ratio 1.1 RATIO (0.9-2.4); AST(SGOT) 23 U/L (15-37); Alanine Aminotransfer ALT/SGPT 33 U/L (16-61); Albumin, Serum 3.7 g/dL (3.2-5.0); Alkaline Phosphatase 84 U/L (45-117); Anion Gap 7 (5-15); BUN 19 mg/dL (7-18); BUN/Creat Ratio 21.4 RATIO (10-20); Calcium,Total 8.5 mg/dL (8.5-10.1); Chloride 107 mmol/L (98-107); Creatinine, Serum 0.89 mg/dL (0.70-1.30); EST Glomerular Filtration Rate 100 mL/min (>60); Est Glom Filt Rate - Afr Amer 120 mL/min (>60); Estimated Creatinine Clearance 100.06 ml/min; Globulin 3.4 g/dL (2.2-4.2); Glucose 93 mg/dL (74-106); Lipase 111 U/L (73-393); Potassium 3.3 mmol/L (3.5-5.1); Protein, Total 7.1 g/dL (6.4-8.2); Sodium Level 137 mmol/L (136-145)
[2019-07-06 19:00] VITALS: BP 147/103; PULSE 84; RESP 24; O2SAT 94
[2019-07-06 19:40] VITALS: BP 145/99; PULSE 86; RESP 26; O2SAT 96
== END 2019-07-06 19:42 | disposition home or self-care (01) ==
PROVIDERS: Emergency Provider Emergency Medicine; Family Provider Internal Medicine; PCP Internal Medicine
DX: R10.9 Unspecified abdominal pain (principal); R11.10 Vomiting, unspecified; R19.7 Diarrhea, unspecified; E87.6 Hypokalemia; G80.9 Cerebral palsy, unspecified; F41.9 Anxiety disorder, unspecified; F63.81 Intermittent explosive disorder; Z79.899 Other long term (current) drug therapy
CPT/HCPCS: 71046; 80053; 83690; 84484; 85027; 93005; 99285; A4216

== ENCOUNTER 2019-10-12 13:34 | Outpatient (RCR) | payer MEDICARE, MEDICAID, SELFPAY ==
[2019-10-05 13:49] LABS: Absolute Lymphocyte Count 1.85 X10^3/uL (0.83-4.51); Absolute Neutrophil Count 3.9 X10^3/uL (2.0-7.7); Basophil# 0.05 X10^3/uL; Basophil% 0.8 % (0-1); Eosinophil# 0.27 X10^3/uL; Eosinophils% 4.1 % (0-5); Hematocrit 40.1 % (40-54); Hemoglobin 12.8 g/dL (13.0-16.5); Lymphocyte # 1.85 X10^3/ul (4.0); Lymphocyte % 27.9 % (19-41); Mean Corp Hgb Conc 31.9 g/dL (32-36); Mean Corpuscular Hgb 31.5 pg (27.0-32.0); Mean Corpuscular Volume 98.8 fL (80-94); Mean Platelet Vol. 9.1 fl (6.2-12.0); Monocyte% 7.5 % (0-10); NRBC Flagged by Analyzer 0 % (0-5); Neutrophil # 3.92 X10^3/uL (2.7-7.7); Neutrophil % 59.1 % (47-70); Platelet Count 523 K/mm3 (150-450); RBC Distribution Width CV 13.4 % (11.6-14.6); RBC Distribution Width SD 48.8 fl (35.1-43.9); Red Blood Count 4.06 M/mm3 (4.6-6.2); White Blood Count 6.6 K/mm3 (4.4-11.0)
[2019-10-05 14:00] LABS: Alanine Aminotransfer ALT/SGPT 23 U/L (16-61); Creatinine, Serum 0.93 mg/dL (0.70-1.30); EST Glomerular Filtration Rate 94 mL/min (>60); Est Glom Filt Rate - Afr Amer 114 mL/min (>60)
[2019-10-12 13:48] LABS: Absolute Lymphocyte Count 1.84 X10^3/uL (0.83-4.51); Basophil# 0.05 X10^3/uL; Basophil% 0.9 % (0-1); Eosinophil# 0.25 X10^3/uL; Eosinophils% 4.5 % (0-5); Hematocrit 42.2 % (40-54); Hemoglobin 13.6 g/dL (13.0-16.5); Lymphocyte # 1.84 X10^3/ul (4.0); Lymphocyte % 33.2 % (19-41); Mean Corp Hgb Conc 32.2 g/dL (32-36); Mean Corpuscular Hgb 31.6 pg (27.0-32.0); Mean Corpuscular Volume 98.1 fL (80-94); Mean Platelet Vol. 9.5 fl (6.2-12.0); Monocyte# 0.41 X10^3/uL; Monocyte% 7.4 % (0-10); NRBC Flagged by Analyzer 0 % (0-5); Neutrophil # 2.99 X10^3/uL (2.7-7.7); Neutrophil % 53.8 % (47-70); Platelet Count 332 K/mm3 (150-450); RBC Distribution Width CV 13.1 % (11.6-14.6); RBC Distribution Width SD 46.7 fl (35.1-43.9); White Blood Count 5.6 K/mm3 (4.4-11.0)
[2019-10-12 14:14] LABS: Alanine Aminotransfer ALT/SGPT 25 U/L (16-61); Creatinine, Serum 0.88 mg/dL (0.70-1.30); EST Glomerular Filtration Rate 100 mL/min (>60); Est Glom Filt Rate - Afr Amer 121 mL/min (>60)
== END 2019-10-20 23:59 ==
LOC: LABSPEC 13:34
PROVIDERS: PCP Internal Medicine
DX: L03.90 Cellulitis, unspecified (principal)
CPT/HCPCS: 82565; 84460; 85025

== ENCOUNTER → 2019-10-20 | Outpatient (CLI) | payer MEDICARE, MEDICAID, SELFPAY ==
[2019-10-20 14:02] LABS: Alanine Aminotransfer ALT/SGPT 21 U/L (16-61); Creatinine, Serum 0.86 mg/dL (0.70-1.30); EST Glomerular Filtration Rate 102 mL/min (>60); Est Glom Filt Rate - Afr Amer 124 mL/min (>60)
[2019-10-20 14:09] LABS: Absolute Lymphocyte Count 1.88 X10^3/uL (0.83-4.51); Absolute Neutrophil Count 3.5 X10^3/uL (2.0-7.7); Basophil# 0.03 X10^3/uL; Basophil% 0.5 % (0-1); Eosinophil# 0.28 X10^3/uL; Eosinophils% 4.5 % (0-5); Hematocrit 42.6 % (40-54); Lymphocyte # 1.88 X10^3/ul (4.0); Lymphocyte % 30.4 % (19-41); Mean Corp Hgb Conc 32.9 g/dL (32-36); Mean Corpuscular Hgb 32.3 pg (27.0-32.0); Mean Corpuscular Volume 98.2 fL (80-94); Mean Platelet Vol. 10.5 fl (6.2-12.0); Monocyte# 0.47 X10^3/uL; Monocyte% 7.6 % (0-10); NRBC Flagged by Analyzer 0 % (0-5); Neutrophil # 3.51 X10^3/uL (2.7-7.7); Neutrophil % 56.7 % (47-70); Platelet Count 250 K/mm3 (150-450); RBC Distribution Width CV 13.1 % (11.6-14.6); RBC Distribution Width SD 46.7 fl (35.1-43.9); Red Blood Count 4.34 M/mm3 (4.6-6.2); White Blood Count 6.2 K/mm3 (4.4-11.0)
== END | disposition home or self-care (01) ==
LOC: LABSPEC 13:25
PROVIDERS: PCP Internal Medicine
DX: L03.90 Cellulitis, unspecified (principal)
CPT/HCPCS: 82565; 84460; 85025

== ENCOUNTER → 2019-10-26 | Outpatient (CLI) | payer MEDICARE, MEDICAID, SELFPAY ==
[2019-10-26 12:59] LABS: Absolute Lymphocyte Count 2.23 X10^3/uL (0.83-4.51); Absolute Neutrophil Count 3.1 X10^3/uL (2.0-7.7); Basophil# 0.05 X10^3/uL; Basophil% 0.8 % (0-1); Eosinophil# 0.31 X10^3/uL; Hematocrit 40.2 % (40-54); Hemoglobin 13.2 g/dL (13.0-16.5); Lymphocyte # 2.23 X10^3/ul (4.0); Lymphocyte % 35.7 % (19-41); Mean Corp Hgb Conc 32.8 g/dL (32-36); Mean Corpuscular Hgb 31.5 pg (27.0-32.0); Mean Corpuscular Volume 95.9 fL (80-94); Mean Platelet Vol. 9.7 fl (6.2-12.0); Monocyte# 0.58 X10^3/uL; Monocyte% 9.3 % (0-10); NRBC Flagged by Analyzer 0 % (0-5); Neutrophil # 3.07 X10^3/uL (2.7-7.7); Platelet Count 256 K/mm3 (150-450); RBC Distribution Width CV 13.2 % (11.6-14.6); RBC Distribution Width SD 46.5 fl (35.1-43.9); Red Blood Count 4.19 M/mm3 (4.6-6.2); White Blood Count 6.3 K/mm3 (4.4-11.0)
[2019-10-26 13:25] LABS: Alanine Aminotransfer ALT/SGPT 14 U/L (16-61); EST Glomerular Filtration Rate 97 mL/min (>60); Est Glom Filt Rate - Afr Amer 118 mL/min (>60)
== END | disposition home or self-care (01) ==
LOC: LABSPEC 12:48
PROVIDERS: PCP Internal Medicine
DX: L03.90 Cellulitis, unspecified (principal)
CPT/HCPCS: 82565; 84460; 85025

== ENCOUNTER 2019-11-02 14:30 | Outpatient (RCR) | payer MEDICARE, MEDICAID, SELFPAY ==
[2019-11-02 16:06] LABS: Absolute Lymphocyte Count 2.03 X10^3/uL (0.83-4.51); Absolute Neutrophil Count 3.2 X10^3/uL (2.0-7.7); Basophil# 0.05 X10^3/uL; Basophil% 0.8 % (0-1); Eosinophil# 0.22 X10^3/uL; Eosinophils% 3.6 % (0-5); Hematocrit 41.2 % (40-54); Hemoglobin 13.7 g/dL (13.0-16.5); Lymphocyte # 2.03 X10^3/ul (4.0); Lymphocyte % 33.2 % (19-41); Mean Corp Hgb Conc 33.3 g/dL (32-36); Mean Corpuscular Hgb 32.1 pg (27.0-32.0); Mean Corpuscular Volume 96.5 fL (80-94); Mean Platelet Vol. 9.4 fl (6.2-12.0); Monocyte# 0.57 X10^3/uL; Monocyte% 9.3 % (0-10); NRBC Flagged by Analyzer 0 % (0-5); Neutrophil # 3.22 X10^3/uL (2.7-7.7); Neutrophil % 52.8 % (47-70); Platelet Count 303 K/mm3 (150-450); RBC Distribution Width CV 13.1 % (11.6-14.6); RBC Distribution Width SD 45.8 fl (35.1-43.9); Red Blood Count 4.27 M/mm3 (4.6-6.2); White Blood Count 6.1 K/mm3 (4.4-11.0)
[2019-11-02 16:22] LABS: Alanine Aminotransfer ALT/SGPT 21 U/L (16-61); Creatinine, Serum 0.88 mg/dL (0.70-1.30); EST Glomerular Filtration Rate 101 mL/min (>60); Est Glom Filt Rate - Afr Amer 122 mL/min (>60)
== END 2019-11-19 23:59 ==
LOC: LABSPEC 14:30
PROVIDERS: PCP Internal Medicine
DX: L03.90 Cellulitis, unspecified (principal)
CPT/HCPCS: 82565; 84460; 85025

== ENCOUNTER → 2019-11-30 | Outpatient (CLI) | payer MEDICARE, MEDICAID, SELFPAY ==
[2019-11-30 15:53] LABS: Hematocrit 43.1 % (40-54); Hemoglobin 14.4 g/dL (13.0-16.5); Mean Corp Hgb Conc 33.4 g/dL (32-36); Mean Corpuscular Hgb 32.7 pg (27.0-32.0); Mean Platelet Vol. 10.2 fl (6.2-12.0); Platelet Count 291 K/mm3 (150-450); RBC Distribution Width CV 12.6 % (11.6-14.6); White Blood Count 5.2 K/mm3 (4.4-11.0)
[2019-11-30 15:56] LABS: Creatinine, Serum 1.01 mg/dL (0.70-1.30); EST Glomerular Filtration Rate 85 mL/min (>60); Est Glom Filt Rate - Afr Amer 103 mL/min (>60)
== END | disposition home or self-care (01) ==
PROVIDERS: PCP Internal Medicine
DX: M86.9 Osteomyelitis, unspecified (principal)
CPT/HCPCS: 82565; 85027

== ENCOUNTER → 2019-12-30 | Outpatient (CLI) | payer MEDICARE, MEDICAID, SELFPAY ==
[2019-12-30 11:59] LABS: Hematocrit 43.4 % (40-54); Hemoglobin 14.3 g/dL (13.0-16.5); Mean Corp Hgb Conc 32.9 g/dL (32-36); Mean Corpuscular Hgb 32.1 pg (27.0-32.0); Mean Corpuscular Volume 97.3 fL (80-94); Mean Platelet Vol. 9.6 fl (6.2-12.0); Platelet Count 297 K/mm3 (150-450); RBC Distribution Width CV 12.4 % (11.6-14.6); RBC Distribution Width SD 44.4 fl (35.1-43.9); Red Blood Count 4.46 M/mm3 (4.6-6.2)
== END | disposition home or self-care (01) ==
LOC: LABSPEC 11:02
PROVIDERS: PCP Internal Medicine
DX: M86.9 Osteomyelitis, unspecified (principal)
CPT/HCPCS: 85027

== ENCOUNTER 2020-09-14 12:00 | Outpatient (RCR) | payer MEDICARE, MEDICAID, SELFPAY ==
--- NOTE | 2020-07-18 17:22 | HP.PTEVAL ---
Patient's Visit Information LOUANN KIM is a 45 year old M referred to Physical Therapy by Dr. Chaitanya Rogers MD with a diagnosis of Cerebral Palsy. Date of Evaluation: 07/18/20 Physical Therapist: Kin Coello, PT, ATC - Visit Plan Frequency: 2-3x /Week Duration: 4-6 Weeks Plan: B LE strengthening, transfer training, gait training, balance and proprio, nustep, and HEP - Subjective Pt's caregiver answered most questions. Pt was born with cerebral palsy. Pt has been declining lately secondary to inactivity. Pt has had an increasingly more difficult time with walking and transferring. Pt has fallen a couple times in the recent weeks. Pt has been falling due to balance deficits. Pt reports the only pain he is in today with with his stomach, which he has had issues with for a chronic period of time. Pt reports he has used a walker in the past, but doesnt use one on a daily basis. caregiver reports pt's goals are to improve his walking and transfers as the staff is having a more difficult time performing these tasks with the patient. - Objective Neuro: B LE sensation is WNL to light touch. MMT: B LE's are grossly 3/5 this date. gait: Pt is unable to ambulate this date. transfers: Pt is unable to stand with modAx1 - Goals Goal 1:: Increase B LE strength x 1 grade to aid with sit to stand transfers Goal Time Frame: 4-6 Weeks Goal 2:: Pt will be able to perform sit to stand transfers with SBAx1 toa id with becoming I with transferring Goal Time Frame: 4-6 Weeks Goal 3:: Pt will be able to ambulate greater than 50 feet with LRD and CGAx1 to aid with independence with gait Goal Time Frame: 4-6 Weeks Goal 4:: I with HEP Goal Time Frame: 4-6 Weeks - Rehabilitation Potential Physical Therapy Diagnosis: Pt is unable to stand and transfer with mod assist of 1 at his time secondary to debilitation. Rehabilitation Potential: Good - Anticipated Interventions Patient/Client Instruction: Educate patient on: Condition, Plan of Care For the Purpose of:: To improve self management Therapeutic Exercise to Include: Strength training, Endurance training, Balance training, Gait and locomotor training, Active ROM For the Purpose of:: To improve muscle performance and motor function, To improve ability to perform ADL's, To increase tolerance to activity/condition/position Thank you for the opportunity to evaluate your patient. For Medicare and Medicare HMO plans, please review the plan of care and approve it. It will need to be FAXED BACK to us at [phone] for Medicare purposes. For Medicare only, by signing this I certify the plan of care. Please let me know if there are questions or concerns regarding this plan of care. Physician Signature: Date:
--- NOTE | 2020-08-15 15:07 | HP.PTREVAL_ITS ---
Dr. Chaitanya Rogers MD, It has been my pleasure to treat LOUANN KIM over the last 9 visits for Cerebral Palsy. Please see the progress note below for an update on the physical therapy plan of care! Subjective: Pt reports he is getting stronger and gait is getting easier Objective/Function: B LE strength is grossly 4/5 throughout. Pt is able to transfer sit to stand with CGAx1 and VC'ing to lean forward. Gait: Pt is able to ambulate 55 feet with CGAx1 and WW. Pt has made significant progress to this date Plan Plan: Cont with POC. B LE strengthening, transfer training, gait training, balance and proprio, nustep, and HEP Goals Goal 1:: Increase B LE strength x 1 grade to aid with sit to stand transfers Goal Time Frame: 4-6 Weeks Goal Progress: Progressing Goal 2:: Pt will be able to perform sit to stand transfers with SBAx1 toa id with becoming I with transferring Goal Time Frame: 4-6 Weeks Goal Progress: Progressing Goal 3:: Pt will be able to ambulate greater than 50 feet with LRD and CGAx1 to aid with independence with gait Goal Time Frame: 4-6 Weeks Goal Progress: Goal Met Goal 4:: I with HEP Goal Time Frame: 4-6 Weeks Goal Progress: Goal Met Goal 5:: Pt will be able to ambulate 100 feet with CGAx1 and LRD Goal Time Frame: 4-6 Weeks Anticipated Interventions Patient/Client Instruction: Educate patient on: Condition, Plan of Care For the Purpose of:: To improve self management Therapeutic Exercise to Include: Strength training, Endurance training, Balance training, Gait and locomotor training, Active ROM For the Purpose of:: To improve muscle performance and motor function, To imp rove ability to perform ADL's, To increase tolerance to activity/condition/position Please do not hesitate to contact me at [phone] by phone or if you have questions or concerns regarding this new plan of care! Sincerely, Kin Coello, PT, ATC
--- NOTE | 2020-09-14 13:29 | HP.PTDCSUM ---
It has been my pleasure to treat LOUANN KIM referred by Dr. Chaitanya Rogers MD, with the diagnosis of Cerebral Palsy for a total of 16 visit(s). Discharge Date: Please see the following information for a summary of their discharge status. Subjective: Pt has made significant progress per pet care associate % Improvement: 50 Objective/Function: B LE strength is grossly 4/5 throughout. Pt is able to ambulate with WW and CGAx1 for 157 feet. Pt is able to transfer sit EOB to walker with SBAx1. I with HEP. Rx goals achieved Goal 1:: Increase B LE strength x 1 grade to aid with sit to stand transfers Goal Progress: Goal Met Goal 2:: Pt will be able to perform sit to stand transfers with SBAx1 toa id with becoming I with transferring Goal Progress: Goal Met Goal 3:: Pt will be able to ambulate greater than 50 feet with LRD and CGAx1 to aid with independence with gait Goal Progress: Goal Met Goal 4:: I with HEP Goal Progress: Goal Met Goal 5:: Pt will be able to ambulate 100 feet with CGAx1 and LRD Plan: Discharge If there are questions or concerns regarding this patient's physical therapy, please feel free to call me at [phone]. Thank you for the referral of this patient. Sincerely, Kin Coello, PT, ATC
== END 2020-09-14 19:00 | disposition home or self-care (01) ==
LOC: PT 12:00
PROVIDERS: PCP Family Medicine; Referring Provider Family Medicine; Visit Provider Family Medicine
DX: G80.9 Cerebral palsy, unspecified (principal)
CPT/HCPCS: 97110; 97116; 97161; 97164

== ENCOUNTER 2022-08-15 18:39 | Emergency (ER) | payer MEDICARE, MEDICAID, SELFPAY ==
[2022-08-15 18:40] VITALS: BP 124/69; PULSE 76; RESP 18; TEMP 36.4; O2SAT 96; BMI 29.8
--- NOTE | 2022-08-15 20:57 | EDS_ITS ---
HPI History of Present Illness Chief Complaint: Wound Check Informant: other ([facility] staff) Onset/Context/Timing Onset: Today Timing: Continuous Quality: Bleeding Location: Left anterior axillary line Worsened by: Nothing Relieved by: Nothing Narrative Narrative: Patient presents with bleeding from his incision in the left axilla. Patient had a vagal nerve stimulator placed 2 days ago. Staff went to change the dressing today and noticed that the dressing was stuck to the wound. Staff noted that there was some increased bleeding from the wound today. Staff is concerned the patient may have been moving his left arm too much and cause the wound to open. Staff denies any fevers or chills. Staff denies any direct trauma or injury. [facility] Medical History (Updated 08/15/22 @ 21:[address] Sixto Abrahma, ) Cerebral palsy MRDD Seizure disorder Home Medications aripiprazole 2 mg tablet 4 mg PO QHS 09/13/17 [History Last Taken Unknown] calcium carbonate 600 mg-vitamin D3 10 mcg (400 unit) chewable tablet (Calcium 600 with Vitamin D3) 1 ea PO BID 09/13/17 [History Last Taken Unknown] diazepam 10 mg tablet (Valium) 10 mg RECTAL PRN PRN Seizures 09/13/17 [History Last Taken Unknown] docusate sodium 100 mg capsule (DOK) 100 mg PO BID 09/13/17 [History Last Taken Unknown] ergocalciferol (vitamin D2) 1,250 mcg (50,000 unit) capsule (Vitamin D2) 50,000 unit PO TH 09/13/17 [History Last Taken Unknown] escitalopram oxalate 10 mg tablet 15 mg PO DAILY 09/13/17 [History Last Taken Unknown] fluticasone propionate 50 mcg/actuation nasal spray,suspension 2 spray DAILY 09/13/17 [History Last Taken Unknown] lamotrigine 200 mg tablet (Lamictal) 300 mg PO BID 09/13/17 [History Last Taken Unknown] polyethylene glycol 3350 17 gram oral powder packet 17 g PO BID 09/13/17 [History Last Taken Unknown] zonisamide 100 mg capsule (Zonegran) 200 mg PO BID 09/13/17 [History Last Taken Unknown] brivaracetam 100 mg tablet 100 mg PO BID 06/30/19 [History Last Taken Unknown] famotidine 20 mg tablet 20 mg PO QHS PRN Heartburn 06/30/19 [History Last Taken Unknown] loratadine 10 mg capsule 10 mg PO DAILY PRN Allergies 06/30/19 [History Last Taken Unknown] meloxicam 15 mg tablet 15 mg PO DAILY 06/30/19 [History Last Taken Unknown] multivitamin-ferrous fumarate-folic acid 18 mg-400 mcg tablet 1 ea PO DAILY 06/30/19 [History Last Taken Unknown] pantoprazole 40 mg tablet,delayed release 40 mg PO DAILY 06/30/19 [History Last Taken Unknown] lamotrigine 200 mg tablet 400 mg PO QHS 07/06/19 [History Last Taken Unknown] dexamethasone 6 mg tablet 6 mg PO DAILY #5 tabs 04/30/22 [Rx Last Taken Unknown] Allergy/AdvReac Type Severity Reaction Status Date / Time cat dander Allergy cough Verified 08/15/22 18:40 divalproex sodium AdvReac Other Verified 08/15/22 18:40 [From Depakote] valproate sodium AdvReac Other Verified 08/15/22 18:40 [From Depakene] valproic acid AdvReac affects Verified 08/15/22 18:40 personal lines insurance agent adversly Surgical History (Updated 08/15/22 @ 21:[address] Sixto Abraham DO) Status post VNS (vagus nerve stimulator) placement Social History Smoking Status: Never smoker ROS ROS ED Constitutional Constitutional ED: Denies chills or fever(s) Eyes Eyes: Denies blurry vision or change in vision ENT ENT ED: Denies rhinorrhea or sore throat Cardiovascular Cardiovascular: Denies chest pain or palpitations Respiratory/Chest Respiratory/Chest: Denies cough or dyspnea Gastrointestinal Gastrointestinal: Denies nausea or vomiting Genitourinary Genitourinary ED: Denies dysuria or hematuria Musculoskeletal Musculoskeletal: Denies back pain or neck pain Integumentary Denies abscess or rash Neurologic Neurologic: Denies headache(s) or weakness Allergic/Immunologic Allergic/Immunologic ED: Denies mouth swelling or urticaria EXAM Physical Exam Const Vital Signs: 08/15/22 18:40 Temperature 97.6 F L Temperature Source Temporal Pulse Rate 76 Respiratory Rate 18 Blood Pressure 124/69 H Blood Pressure Mean 87 Pulse Ox 96 Oxygen Delivery Method Room Air Positive well nourished and well developed General Appearance ED: well developed and NAD HEENT Reports moist mucous membranes Chest Wall Chest Narrative: There is bleeding from his incision in the left anterior axillary line. There is mild tenderness. There is no gapping of the wound margins. There is some ecchymosis around the incision. There is no erythema or sign of infection. There is no purulent discharge or drainage. Neuro CN's II-XII intact bilaterally and no sensory deficits noted Sensorium / Orientation: alert Skin Skin Narrative: There is a healing incision in the left anterior axillary line. There is ecchymosis noted. There is some mild bleeding. There is no pulsatile bleeding. There is no erythema. There is no purulent discharge or drainage. There is no warmth. There is no induration. MDM MDM MDM Narrative Medical decision making narrative: The dressing was removed without difficulty. The wound did not open up with this. Bacitracin dressing was applied. Bulky dressing was also applied. There does not appear to be any infection. I do not feel antibiotics are necessary at this time. Patient was instructed to follow-up with his surgeon and his primary care physician in 5 to 7 days. Caregiver understood and was agreeable with the plan. All questions were answered. Discharge Plan Triage Chief Complaint: Wound Check ED Provider: Sixto Abraham Dx/Rx/DC Orders Clinical Impression: Postoperative bleeding from incision, Cerebral palsy Instructions: ED Post Op Wound Check, Bleeding Prescriptions: No Action dexamethasone 6 mg tablet 6 mg PO DAILY Qty: 5 0RF lamotrigine [Lamictal] 200 MG tablet 300 mg PO BID polyethylene glycol 3350 17 GM Packet 17 g PO BID zonisamide [Zonegran] 100 MG capsule 200 mg PO BID docusate sodium [DOK] 100 MG capsule 100 mg PO BID ergocalciferol (vitamin D2) [Vitamin D2] 50,000 UNIT capsule 50,000 unit PO TH diazepam [Valium] 10 MG tablet 10 mg RECTAL PRN PRN (Reason: Seizures) fluticasone propionate 1 SPRAY Nasal.Sry 2 spray NASAL DAILY escitalopram oxalate 10 MG tablet 15 mg PO DAILY aripiprazole 2 MG tablet 4 mg PO QHS calcium carbonate-vitamin D3 [Calcium 600 with Vitamin D3] 1 EACH Tab.Chew 1 ea PO BID meloxicam 15 MG tablet 15 mg PO DAILY famotidine 20 MG tablet 20 mg PO QHS PRN (Reason: Heartburn) pantoprazole 40 MG tablet 40 mg PO DAILY rugxousalmds-mgvd-gaxny acid 1 EACH tablet 1 ea PO DAILY loratadine 10 MG capsule 10 mg PO DAILY PRN (Reason: Allergies) brivaracetam 100 MG tablet 100 mg PO BID lamotrigine 200 tablet 400 mg PO QHS Primary Care Provider: Chaitanya Rogers Referrals: Chaitanya Rogres MD [Primary Care Provider] - 5-7 Days Disposition Disposition: Home, Self Care
[2022-08-15 22:01] VITALS: PULSE 85; RESP 15; O2SAT 95
== END 2022-08-15 22:02 | disposition home or self-care (01) ==
LOC: ED 21:15
PROVIDERS: Emergency Provider Emergency Medicine; PCP Family Medicine; Visit Provider Emergency Medicine
DX: L76.22 Postprocedural hemorrhage of skin and subcutaneous tissue following other procedure (principal); G80.9 Cerebral palsy, unspecified
CPT/HCPCS: 99283

== ENCOUNTER 2022-08-17 18:50 | Emergency (ER) | payer MEDICARE, MEDICAID, SELFPAY ==
[2022-08-17 18:51] VITALS: BP 137/81; PULSE 87; RESP 18; TEMP 36.1; O2SAT 97; BMI 22.3
--- NOTE | 2022-08-17 19:46 | EDS_ITS ---
HPI History of Present Illness Chief Complaint: Wound Check Informant: other Narrative Narrative: Patient here with staff member from [facility] due to concerns of open wound with exposed vagus stimulator. Patient history of MRDD seizure disorder has had vagus stimulator for years. 4 days postop replacement stimulator by Dr. Avila, ENT, 3 facility. He was here 2 days ago for a wound check due to oozing from the wound. This was stabilized. Today with dressing changes they noted wound more open and can see the stimulator. They tried calling however went through answering service. He was brought here for evaluation. There is been no fevers. He has been acting normally. He has not had a seizure in years since having the stimulator. Reported he has had issues with stimulator rejections in the past per staff member. [facility] Medical History Cerebral palsy MRDD Seizure disorder Home Medications aripiprazole 2 mg tablet 4 mg PO QHS 09/13/17 [History Last Taken Unknown] calcium carbonate 600 mg-vitamin D3 10 mcg (400 unit) chewable tablet (Calcium 600 with Vitamin D3) 1 ea PO BID 09/13/17 [History Last Taken Unknown] diazepam 10 mg tablet (Valium) 10 mg RECTAL PRN PRN Seizures 09/13/17 [History Last Taken Unknown] docusate sodium 100 mg capsule (DOK) 100 mg PO BID 09/13/17 [History Last Taken Unknown] ergocalciferol (vitamin D2) 1,250 mcg (50,000 unit) capsule (Vitamin D2) 50,000 unit PO TH 09/13/17 [History Last Taken Unknown] escitalopram oxalate 10 mg tablet 15 mg PO DAILY 09/13/17 [History Last Taken Unknown] fluticasone propionate 50 mcg/actuation nasal spray,suspension 2 spray DAILY 09/13/17 [History Last Taken Unknown] lamotrigine 200 mg tablet (Lamictal) 300 mg PO BID 09/13/17 [History Last Taken Unknown] polyethylene glycol 3350 17 gram oral powder packet 17 g PO BID 09/13/17 [History Last Taken Unknown] zonisamide 100 mg capsule (Zonegran) 200 mg PO BID 09/13/17 [History Last Taken Unknown] brivaracetam 100 mg tablet 100 mg PO BID 06/30/19 [History Last Taken Unknown] famotidine 20 mg tablet 20 mg PO QHS PRN Heartburn 06/30/19 [History Last Taken Unknown] loratadine 10 mg capsule 10 mg PO DAILY PRN Allergies 06/30/19 [History Last Taken Unknown] meloxicam 15 mg tablet 15 mg PO DAILY 06/30/19 [History Last Taken Unknown] multivitamin-ferrous fumarate-folic acid 18 mg-400 mcg tablet 1 ea PO DAILY 06/30/19 [History Last Taken Unknown] pantoprazole 40 mg tablet,delayed release 40 mg PO DAILY 06/30/19 [History Last Taken Unknown] lamotrigine 200 mg tablet 400 mg PO QHS 07/06/19 [History Last Taken Unknown] dexamethasone 6 mg tablet 6 mg PO DAILY #5 tabs 04/30/22 [Rx Last Taken Unknown] Allergy/AdvReac Type Severity Reaction Status Date / Time cat dander Allergy cough Verified 08/17/22 18:54 divalproex sodium AdvReac Other Verified 08/17/22 18:54 [From Depakote] valproate sodium AdvReac Other Verified 08/17/22 18:54 [From Depakene] valproic acid AdvReac affects Verified 08/17/22 18:54 health commissioner adversly Surgical History Status post VNS (vagus nerve stimulator) placement Social History Smoking Status: Never smoker ROS ROS ED Review of Systems ROS Unobtainable: due to mental condition EXAM Physical Exam Const Vital Signs: 08/17/22 18:51 Temperature 97 F L Temperature Source Temporal Pulse Rate 87 Respiratory Rate 18 Blood Pressure 137/81 H Blood Pressure Mean 99 Pulse Ox 97 Oxygen Delivery Method Room Air Positive well nourished Constitutional Narrative: Nontoxic eating in the room. General Appearance ED: NAD HEENT Reports moist mucous membranes normocephalic and atraumatic Eyes PERRL, EOMs intact bilaterally and conjunctivae normal General Eye ED: Yes normal appearance of both eyes Neck no lymphadenopathy and supple General: Negative for tenderness Chest Wall Chest: Negative for tenderness Resp normal respiratory effort and normal air movement Effort and Inspection: symmetric chest movement; Negative for respiratory distress Cardio regular rate, regular rhythm and no murmurs Peripheral Pulses: pulses 2+ throughout GI normal to inspection, nondistended, normoactive bowel sounds and non-tender Palpation: Negative for guarding or rebound tenderness present Back/Spine no CVA tenderness and no thoracic nor lumbar tenderness Extremity normal to inspection General Extremety ED: Negative for edema or tenderness General Extremity: Negative for edema Neuro oriented x3 and no sensory deficits noted Sensorium / Orientation: awake and alert Skin Skin Narrative: Left axilla: There is an open incision. There was residual Dermabond. Noted subcu sutures is now loose and with dehiscence of the wound. There is noted metal device exposure inferior aspect of the wound. There is no surrounding erythema or drainage. MDM MDM MDM Narrative Medical decision making narrative: Patient vital signs stable appearing. Exam concerning for wound dehiscence with stimulator exposure. At risk for infections. 2119: I spoke with ENT attending Dr. Gresham and ENT resident Юлия, discussed findings. They would like to go through the ED for surgery to evaluate. We will get labs we will give Ancef. Discussed with ED physician Dr. Smith who accepts transfer to the ED for ENT evaluation. Staff member is updated. Lab Data Labs: Laboratory Results - last 24 hr 08/17/22 08/17/22 08/17/22 21:43 21:43 21:43 WBC 8.7 RBC 4.40 L Hgb 14.3 Hct 43.2 MCV 98.2 H MCH 32.5 H MCHC 33.1 RDW Std Deviation 46.1 H RDW Coeff of Krishna 12.7 Plt Count 288 MPV 8.9 Immature Gran % (Auto) 0.200 Neut % (Auto) 60.1 Lymph % (Auto) 27.6 [place] % (Auto) 8.4 Eos % (Auto) 3.0 Baso % (Auto) 0.7 Absolute Neuts (auto) 5.2 Absolute Lymphs (auto) 2.40 Nucleated RBC % 0 PT 12.3 INR 0.9 APTT 29.0 Sodium 142 Potassium 3.7 Chloride 109 H Carbon Dioxide 26.0 Anion Gap 7 BUN 15 Creatinine 0.87 Estim Creat Clear Calc 108.91 Est GFR (MDRD) Af Amer 121 Est GFR (MDRD) Non-Af 100 BUN/Creatinine Ratio 17.2 Glucose 101 Calcium 8.4 L Discharge Plan Triage Chief Complaint: Wound Check ED Provider: Pierre Stephens Dx/Rx/DC Orders Clinical Impression: Dehiscence of wound, MRDD, Post-operative complication Prescriptions: No Action dexamethasone 6 mg tablet 6 mg PO DAILY Qty: 5 0RF lamotrigine [Lamictal] 200 MG tablet 300 mg PO BID polyethylene glycol 3350 17 GM Packet 17 g PO BID zonisamide [Zonegran] 100 MG capsule 200 mg PO BID docusate sodium [DOK] 100 MG capsule 100 mg PO BID ergocalciferol (vitamin D2) [Vitamin D2] 50,000 UNIT capsule 50,000 unit PO TH diazepam [Valium] 10 MG tablet 10 mg RECTAL PRN PRN (Reason: Seizures) fluticasone propionate 1 SPRAY Nasal.Sry 2 spray NASAL DAILY escitalopram oxalate 10 MG tablet 15 mg PO DAILY aripiprazole 2 MG tablet 4 mg PO QHS calcium carbonate-vitamin D3 [Calcium 600 with Vitamin D3] 1 EACH Tab.Chew 1 ea PO BID meloxicam 15 MG tablet 15 mg PO DAILY famotidine 20 MG tablet 20 mg PO QHS PRN (Reason: Heartburn) pantoprazole 40 MG tablet 40 mg PO DAILY uwxisbclbzyt-szxr-ehlbf acid 1 EACH tablet 1 ea PO DAILY loratadine 10 MG capsule 10 mg PO DAILY PRN (Reason: Allergies) brivaracetam 100 MG tablet 100 mg PO BID lamotrigine 200 tablet 400 mg PO QHS Primary Care Provider: Chaitanya Rogers Referrals: Chaitanya Rogers MD [Primary Care Provider] - Disposition Disposition: DC/Tx to Another Type of HCF
[2022-08-17 22:02] LABS: Absolute Neutrophil Count 5.2 X10^3/uL (2.0-7.7); Basophil# 0.06 X10^3/uL; Basophil% 0.7 % (0-1); Eosinophil# 0.26 X10^3/uL; Hematocrit 43.2 % (40-54); Hemoglobin 14.3 g/dL (13.0-16.5); Lymphocyte % 27.6 % (19-41); Mean Corp Hgb Conc 33.1 g/dL (32-36); Mean Corpuscular Hgb 32.5 pg (27.0-32.0); Mean Corpuscular Volume 98.2 fL (80-94); Mean Platelet Vol. 8.9 fl (6.2-12.0); Monocyte# 0.73 X10^3/uL; Monocyte% 8.4 % (0-10); NRBC Flagged by Analyzer 0 % (0-5); Neutrophil # 5.24 X10^3/uL (2.7-7.7); Neutrophil % 60.1 % (47-70); Platelet Count 288 K/mm3 (150-450); RBC Distribution Width CV 12.7 % (11.6-14.6); RBC Distribution Width SD 46.1 fl (35.1-43.9); White Blood Count 8.7 K/mm3 (4.4-11.0)
[2022-08-17] MEDS: Cefazolin 2 GM in 0.9% Normal Saline 100 ML IV (22:04)
[2022-08-17 22:13] LABS: International Normalized Ratio 0.9; Prothrombin Time (Protime)PT. 12.3 SECONDS (11.7-14.9)
[2022-08-17 22:16] LABS: Anion Gap 7 (5-15); BUN 15 mg/dL (7-18); BUN/Creat Ratio 17.2 RATIO (10-20); Calcium,Total 8.4 mg/dL (8.5-10.1); Chloride 109 mmol/L (98-107); Creatinine, Serum 0.87 mg/dL (0.70-1.30); EST Glomerular Filtration Rate 100 mL/min (>60); Est Glom Filt Rate - Afr Amer 121 mL/min (>60); Estimated Creatinine Clearance 108.91 ml/min; Glucose 101 mg/dL (74-106); Potassium 3.7 mmol/L (3.5-5.1); Sodium Level 142 mmol/L (136-145)
[2022-08-17 22:56] VITALS: BP 106/84; PULSE 84; RESP 16; O2SAT 97
--- NOTE | 2022-08-17 23:58 | ED.RN ---
Report called to Nurse Kasia in the ED.
--- NOTE | 2022-08-18 00:06 | ED.RN ---
Lavern from [facility] who is one of pt. caretakers will take home his wheelchair.
== END 2022-08-18 02:54 | disposition other institution (70) ==
PROVIDERS: Emergency Provider Emergency Medicine; PCP Family Medicine; Visit Provider Emergency Medicine
DX: T81.30XA Disruption of wound, unspecified, initial encounter (principal); G40.909 Epilepsy, unspecified, not intractable, without status epilepticus; F79 Unspecified intellectual disabilities; G97.82 Other postprocedural complications and disorders of nervous system; X58.XXXA Exposure to other specified factors, initial encounter
CPT/HCPCS: 80048; 85025; 85610; 85730; 87811; 96365; 99283; A4216

== ENCOUNTER → 2024-09-11 | Outpatient (CLI) | payer MEDICARE, MEDICAID, SELFPAY ==
[2024-09-11 08:11] LABS: Hematocrit 41.9 % (40-54); Hemoglobin 13.9 g/dL (13.0-16.5); Mean Corp Hgb Conc 33.2 g/dL (32-36); Mean Corpuscular Hgb 32.1 pg (27.0-32.0); Mean Corpuscular Volume 96.8 fL (80-94); Platelet Count 282 K/mm3 (150-450); RBC Distribution Width CV 13.1 % (11.6-14.6); RBC Distribution Width SD 46.6 fl (35.1-43.9); Red Blood Count 4.33 M/mm3 (4.6-6.2); White Blood Count 5.2 K/mm3 (4.4-11.0)
[2024-09-11 08:30] LABS: ALB/GLOB Ratio 1.1 RATIO (0.9-2.4); AST(SGOT) 18 U/L (15-37); Alanine Aminotransfer ALT/SGPT 27 U/L (16-61); Albumin, Serum 3.4 g/dL (3.2-5.0); Alkaline Phosphatase 83 U/L (45-117); Anion Gap 4 (5-15); BUN 18 mg/dL (7-18); BUN/Creat Ratio 20.7 RATIO (10-20); Chloride 111 mmol/L (98-107); Creatinine, Serum 0.87 mg/dL (0.70-1.30); EST Glomerular Filtration Rate 99 mL/min (>60); Est Glom Filt Rate - Afr Amer 120 mL/min (>60); Globulin 3.2 g/dL (2.2-4.2); Glucose 78 mg/dL (74-106); Potassium 4.1 mmol/L (3.5-5.1); Protein, Total 6.6 g/dL (6.4-8.2); Sodium Level 141 mmol/L (136-145)
== END | disposition home or self-care (01) ==
LOC: LABSPEC 07:50
PROVIDERS: PCP Family Medicine; Referring Provider Internal Medicine; Visit Provider Internal Medicine
DX: F63.81 Intermittent explosive disorder (principal); Z79.899 Other long term (current) drug therapy
CPT/HCPCS: 80053; 85027

== ENCOUNTER → 2025-02-11 | Outpatient (CLI) | payer MEDICARE, MEDICAID, SELFPAY | END | disposition home or self-care (01) | PROVIDERS: PCP Family Medicine | DX: G40.309 Generalized idiopathic epilepsy and epileptic syndromes, not intractable, without status epilepticus (principal) | CPT/HCPCS: 82542 ==

== ENCOUNTER 2025-02-23 08:30 | Outpatient (CLI) | payer MEDICARE, MEDICAID, SELFPAY ==
[2025-02-23 12:33] LABS: Hematocrit 41.3 % (40-54); Hemoglobin 14.3 g/dL (13.0-16.5); Mean Corp Hgb Conc 34.6 g/dL (32-36); Mean Corpuscular Volume 97.4 fL (80-94); Mean Platelet Vol. 9.6 fl (6.2-12.0); Platelet Count 252 K/mm3 (150-450); RBC Distribution Width CV 13.3 % (11.6-14.6); RBC Distribution Width SD 47.7 fl (35.1-43.9); Red Blood Count 4.24 M/mm3 (4.6-6.2); White Blood Count 6.7 K/mm3 (4.4-11.0)
[2025-02-23 12:56] LABS: AST(SGOT) 22 U/L (<=37); Alanine Aminotransfer ALT/SGPT 26 U/L (<=46); Albumin, Serum 4.0 g/dL (3.5-5.0); Alkaline Phosphatase 90 U/L (40-129); Anion Gap 10 (5-15); BUN 20 mg/dL (4-19); BUN/Creat Ratio 22.3 RATIO (10-20); Calcium,Total 9.1 mg/dL (7.6-11.0); Carbon Dioxide 24.4 mmol/L (21.0-32.0); Chloride 108 mmol/L (98-108); Globulin 2.1 g/dL (2.2-4.2); Glucose 81 mg/dL (70-99); Potassium 4.6 mmol/L (3.3-5.1)
== END 2025-02-23 23:59 | disposition home or self-care (01) ==
LOC: LABSPEC 08:31
PROVIDERS: PCP Family Medicine; Visit Provider Internal Medicine
DX: F63.81 Intermittent explosive disorder (principal)
CPT/HCPCS: 80053; 85027